=== PATIENT | male | born 1950 | race Caucasian/White ===

== ENCOUNTER 2023-10-04 06:29 | Day surgery (SDC) | payer OTHER, SELFPAY ==
[2023-10-04] VITALS (10 sets, daily range): BP systolic 108–171; BP diastolic 66–91; BMI 29.2
[2023-10-04] MEDS: LOW STRENGTH ASPIRIN 81 MG PO (06:51)
[2023-10-04] MEDS: NSS 239 ML IV (07:02)
[2023-10-04 07:21] LABS: Glucose - Point of Care 119 mg/dl (70-99)
--- NOTE | 2023-10-04 07:23 | ITS.CL.CATH ---
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
Cardiac Catheterization
Procedure Report:
CARDIAC CATHETERIZATION REPORT
Date of Procedure: 10/04/2023
Referring: Ron Tucker MD
Indication: New onset angina
HEMODYNAMIC DATA
AO: 173/65
LV: 173/14
LEFT VENTRICULOGRAPHY: Distal anterolateral hypokinesis with EF 53%
CORONARY ANGIOGRAPHY
Dominance: Right
Left Main: Normal
LAD: The LAD is moderately calcified. There is 40% proximal stenosis and calcific 60% mid LAD stenosis just past the takeoff of the first septal paper tube cutter. There is an eccentric 80% mid LAD stenosis spanning the takeoff of the small third
diagonal branch. There is mild to moderate diffuse disease of the apical LAD. There are 2 high rising diagonal branches-D1 is small and severely diseased. D2 is large with a long area of disease to 70% proximally.
Circumflex: The circumflex is severely calcified. There is 80% ostial/proximal stenosis spanning the takeoff of the large disease-free OM1. There is 40% mid circumflex stenosis proximal to the takeoff of the large bifurcating OM2 which has 30-40%
mid stenosis. The circumflex terminates with a tiny OM 3.
RCA: The RCA is dominant with significant ostial and 70% proximal stenoses. The acute marginal takes off from the crux and becomes the PDA. There is 70% stenosis in the AV groove proximal to the takeoff of the first right posterolateral branch
which is a moderate size vessel with mild luminal disease. The smaller second right posterolateral branch has 70% ostial stenosis. The medium sized third right posterolateral branch is occluded proximally
Closure Device: None-the procedure was performed via the right radial artery. The Jian's test was normal prior to the procedure.
Radiation (mGy): 378
DAP (cm2.Gy): 37.2
Fluoroscopy time: 6.5 minutes
CONCLUSIONS
1: Systemic hypertension
2: Distal anterolateral hypokinesis with EF 53%
3. Severe triple-vessel CAD as described
4. Recommend CABG-optimal targets include LAD, large D2, OM1, RPDA, and RPL
5. The patient has only experienced exertional angina. He has been advised to report to the ER with any angina at limited activity or at rest. He has been strongly advised to avoid all strenuous activity. We will increase metoprolol to 25 mg
daily and add Imdur 30 mg daily. He has sublingual nitroglycerin and has been advised how to use this.
Copy to: Ron Tucker MD, Jessee Chou,
Rc Calloway MD, [facility], [facility]
[2023-10-04] MEDS: NSS 357 IV (09:08)
--- NOTE | 2023-10-04 10:43 | CONSULT.CT ---
Consultation
-
Date/Time Consultation Requested: 10/04/23
Date/Time Consultation Performed: 10/04/23
Requesting Provider: Brodie
Performing Provider: Tsering Mclaughlin PA-C for Dr. Hari Tilley
Reason for Consultation: CABG evaluation
Patient History
Physicians
Family Physician: Jessee Chou
Outpatient Marble Finisher: Ron Tucker
Inpatient Marble Finisher: Brodie
History of Present Illness
Pt is a very pleasant 72y/oM with several months of exertional chest tightness and jaw discomfort. Pt admits to associated MORRELL. Symptoms have been occurring mostly with steps. 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 Pt states symptoms completely resolve with rest. Pt sought evaluation by his PCP who referred him to [facility] cardiology. Pt presented today for elective LHC and was found to have MVCAD. We are asked to evaluate him for CABG.
Past Medical History
Past Medical History: Other
Hypertension
Hyperlipidemia
IDDM
CKD (09/29/23 1.67)
kidney stones
anxiety
depression
GERD
IBS
osteoarthritis
hx cataracts
Past Surgical History
Past Surgical History: Other
cataract sx
hernia repair 2010
L wrist ORIF 2008
lithotripsy
tonsillectomy 1954
Family History
Mother: at Age (92; hx ME @ age 65)
Father: at Age (89; hx ME late 50s)
Family Medical History: Early CAD
Social History
Alcohol: None
Drug: None
Tobacco: Non-Smoker (never smoker)
Personal: Single
Living: With Family (lives with sister & brother in law)
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
Allergies
Allergy/AdvReac Type Severity Reaction Status Date / Time
oxycodone [From Percodan] Allergy Unknown Verified 10/04/23 06:49
Home Medications
Medication Instructions Recorded Confirmed Type
aspirin 81 mg tablet,delayed 81 mg PO DAILY 10/04/23 10/04/23 History
release
atorvastatin 40 mg tablet 40 mg PO DAILY 10/04/23 10/04/23 History
citalopram 20 mg tablet 20 mg PO DAILY 10/04/23 10/04/23 History
insulin glargine 100 unit/mL (3 10 unit SC QPM 10/04/23 10/04/23 History
mL) subcutaneous pen (Basaglar
KwikPen U-100 Insulin)
isosorbide mononitrate 30 mg 30 mg PO DAILY #30 tabs 10/04/23 Rx
tablet,extended release 24 hr
levocetirizine 5 mg tablet 5 mg PO QPM 10/04/23 10/04/23 History
lisinopril 20 1 tab PO DAILY 10/04/23 10/04/23 History
mg-hydrochlorothiazide 25 mg tablet
metformin 500 mg tablet 500 mg PO TIDWMEAL 10/04/23 10/04/23 History
metoprolol succinate 25 mg 25 mg PO DAILY #0 tabs 10/04/23 10/04/23 Rx
tablet,extended release 24 hr
nitroglycerin 0.4 mg sublingual 0.4 mg sublingual [id number] PRN 10/04/23 Rx
tablet chest pain #25 tabs
pantoprazole 40 mg tablet,delayed 40 mg PO DAILY 10/04/23 10/04/23 History
release
Review of Systems
-
History Source: Patient
General: Denies Fever, Weight Loss, Fatigue or Chills
HEENT: Denies Visual Changes or Sore Throat
Respiratory: Reports MORRELL and Cough (chronic )
Cardiac: Reports Chest Pain ('tightness'); Denies Palpitations or Diaphoresis
Abdomen/GI: Denies Abdominal Pain, Nausea or Vomiting
: Denies Dysuria or Frequency
Musculoskeletal: Denies Myalgias or Arthralgias
Skin: Denies Itching or Rash
Neurological: Denies CVA, TIA, Syncope, Dizzy or Seizures
Vascular: Denies Claudication
Physical Exam
Vital Signs
Temp 98.0 F 10/04/23 07:03
Temp route: Temporal 10/04/23 07:03
Pulse 66 10/04/23 09:50
Resp Rate 16 10/04/23 07:03
Blood pressure 171/75 10/04/23 10:37
Position: Sitting 10/04/23 07:03
MAP (cuff-Rogers Monitor) 107 10/04/23 10:37
SaO2 100 10/04/23 09:50
Oxygen Mode of Delivery Room air 10/04/23 10:21
Can the patient verbally communicate their pain? Yes 10/04/23 10:21
Actual Weight 79.6 kg 10/04/23 06:40
Body Mass Index (BMI) 29.2 10/04/23 06:40
Labs
09/29 Cr 1.67, hgb 13.9
Diagnostic Studies
CARDIAC CATHETERIZATION REPORT
Date of Procedure: 10/04/2023
Referring: Ron Tucker MD
Indication: New onset angina
HEMODYNAMIC DATA
AO: 173/65
LV: 173/14
LEFT VENTRICULOGRAPHY: Distal anterolateral hypokinesis with EF 53%
CORONARY ANGIOGRAPHY
Dominance: Right
Left Main: Normal
LAD: The LAD is moderately calcified.� There is 40% proximal stenosis and calcific 60% mid LAD stenosis just past the takeoff of the first septal embossing press operator molded goods.� There is an eccentric 80% mid LAD stenosis spanning the takeoff of the small third
diagonal branch.� There is mild to moderate diffuse disease of the apical LAD.� There are 2 high rising diagonal branches-D1 is small and severely diseased.� D2 is large with a long area of disease to 70% proximally.
Circumflex: The circumflex is severely calcified.� There is 80% ostial/proximal stenosis spanning the takeoff of the large disease-free OM1.� There is 40% mid circumflex stenosis proximal to the takeoff of the large bifurcating OM2 which has 30-40%
mid stenosis.� The circumflex terminates with a tiny OM 3.
RCA: The RCA is dominant with significant ostial and 70% proximal stenoses.� The acute marginal takes off from the crux and becomes the PDA.� There is 70% stenosis in the AV groove proximal to the takeoff of the first right posterolateral branch
which is a moderate size vessel with mild luminal disease.� The smaller second right posterolateral branch has 70% ostial stenosis. The medium sized third right posterolateral branch is occluded proximally
Exam
General: Well Developed, Well Nourished and No Apparent Distress
HEENT: Normocephalic, Anicteric and Moist Mucous Membranes
Neck: Trachea Midline; Negative Carotid Bruit or Mass
Respiratory: Clear; Negative Wheezes, Crackles or Rhonchi
Cardiac: Regular Rhythm; Negative Murmur, Rub or Gallop
GI: Soft, Non Tender and Non Distended
Rectal: Deferred by Provider
Skin: Warm and Dry
Neuro: Nonfocal/Grossly Intact
Extremities: Pulses (L rad 2+; R rad TR in place; R DP +doppler signal, L DP 1+)
Psych: Calm
Assessment / Plan
-
stable angina
MVCAD
- Per cardiology pt's symptoms stable to go home today, we will schedule the patient for preadmission testing later this week in anticipation of CABG. Dr. Tilley to see for full evaluation & determine surgical date. Will order US carotids, CXR,
TTE, labs to be done in [facility] (Saturday 10/07 @ 8:30am). Pt and family agreeable to proceeding with workup & awaiting discussion with Dr. Tilley. Consents to be obtained after risk discussion with surgeon.
STS RISKS calculated below, assumes normal valves on echo (53% EF on LV gram)
Procedure Type:�Isolated CABG
PERIOPERATIVE OUTCOME ESTIMATE %
Operative Mortality 1.19%
Morbidity & Mortality 6.69%
Stroke 1.1%
Renal Failure 2.33%
Reoperation 1.75%
Prolonged Ventilation 2.72%
Deep Sternal Wound Infection 0.235%
Long Hospital Stay (>14 days) 3.68%
Short Hospital Stay (<6 days)* 45.1%
Clinical Summary
Planned Surgery: Isolated CABG, Elective, First cardiovascular surgery
Demographics: 72 year old, White, male, 79.6kg, 165cm, BMI: 29.2 kg/m�
Lab Values: Creatinine: 1.67 mg/dL, Hematocrit: 40%, Platelet Count: 364527 cells/�L
PreOp Medications: Insulin diabetes control
Substance Abuse: Never smoker
Risk Factors / Comorbidities: Insulin-dependent Diabetes Mellitus, Hypertension, Family Hx of CAD
Cardiac Status: Ejection Fraction = 53%
Coronary Artery Disease: 3 vessels diseased, Stable Angina
Data Reviewed
-
EKG: Report Reviewed by me
Powerhouse Laborer: Report Reviewed by me
== END 2023-10-04 13:45 | disposition home or self-care (01) ==
LOC: CATH 06:29
PROVIDERS: ATTENDING PHYSICIAN Internal Medicine Cardiovascular Disease; FAMILY PHYSICIAN Family Medicine
DX: I25.118 Atherosclerotic heart disease of native coronary artery with other forms of angina pectoris (principal); I12.9 Hypertensive chronic kidney disease with stage 1 through stage 4 chronic kidney disease, or unspecified chronic kidney disease; E11.22 Type 2 diabetes mellitus with diabetic chronic kidney disease; E78.5 Hyperlipidemia, unspecified; K21.9 Gastro-esophageal reflux disease without esophagitis; K58.9 Irritable bowel syndrome, unspecified; M19.90 Unspecified osteoarthritis, unspecified site; Z79.4 Long term (current) use of insulin; Z79.84 Long term (current) use of oral hypoglycemic drugs; Z79.82 Long term (current) use of aspirin
CPT/HCPCS: 82962; 93458; C1894; Q9967

== ENCOUNTER 2023-10-18 06:06 | Day surgery (SDC) | payer OTHER, SELFPAY ==
[2023-10-18] VITALS (12 sets, daily range): BP systolic 97–152; BP diastolic 48–68; BMI 29.5
[2023-10-18] MEDS: NSS 239 ML IV (06:53)
[2023-10-18] MEDS: PLAVIX 75 MG PO (06:54)
[2023-10-18 07:01] LABS: Glucose - Point of Care 100 mg/dl (70-99)
--- NOTE | 2023-10-18 08:42 | ITS.CL.PN ---
Senior Animal Trainer - Procedure Note
Procedure
Procedure Note:
CAROTID ANGIOGRAM REPORT
Date of Procedure: 10/18/2023
Referring: Rc Calloway MD
PROCEDURE SUMMARY:
1. Selective right carotid angiography demonstrates total occlusion of the proximal right ICA. Cerebral imaging not performed on the right to save contrast
2. Selective left carotid angiography demonstrates tandem 50% and 50-60% proximal left ICA stenoses
DESCRIPTION OF PROCEDURE: The patient was evaluated for elective CABG due to severe triple-vessel CAD. Carotid ultrasound demonstrated either string sign or occlusion of the right ICA with greater than 70% left ICA stenosis by elevated velocities.
Options were reviewed with the patient. Due to significant renal insufficiency neither CTA nor MRA were performed. Instead, we opted to do low volume conventional carotid angiography with an eye toward treating either the left or right ICA disease
with JD. Patient is asymptomatic with no prior history of known TIA or CVA. Plavix was started several days earlier with a bolus dose of 300 mg and he has been on uninterrupted aspirin 81 mg daily. Informed consent was obtained with estimation
of risk to include 1% major stroke and additional 2% minor stroke risk. Risk of contrast nephropathy also discussed. Patient was hydrated prior to the procedure and again post procedure.
A 5 Malagasy sheath was placed in the right femoral artery using a micropuncture technique. A 5 Malagasy BUCKY diagnostic catheter was advanced into the right common carotid artery and positioned proximal to the bifurcation. Angiography demonstrated
total occlusion of the proximal right ICA. The external carotid artery is widely patent. The BUCKY catheter was then withdrawn and positioned in the left common carotid artery. Angiography showed no significant disease in the left common carotid
artery. Over a angled Glidewire the catheter was advanced to the distal left common carotid artery. Angiography showed tandem 50% and 50-60% proximal left ICA stenoses. Cerebral angiography on the left demonstrated a widely patent distal ICA with
patent left MCA and left ADÁN. There may be subtotal occlusion of the left ophthalmic artery which appears to fill via ADÁN collaterals. There were some collaterals from the ADÁN to the right hemisphere. The right MCA was not visualized.
ANTI-COAGULATION THERAPY
1: Heparin 4000 units
Closure Device Used: 6 Malagasy Angio-Seal RFA
Radiation (mGy): 99.6
DAP (cm2.Gy): 12.2
Fluoroscopy time: 4.5 minutes
CONCLUSIONS:
1. Bilateral selective carotid angiography demonstrates total proximal right internal carotid artery occlusion and tandem 50% and 50-60% proximal left internal carotid artery stenoses
2. Recommend medical therapy with interval ultrasound follow-up for progression of left ICA disease
3. Proceed with CABG
Copy to: Ron Tucker MD, Jessee Campbell DO, Hari Tilley MD
Rc Calloway MD, [facility], [facility]
[2023-10-18] MEDS: TYLENOL 650 MG PO (11:15)
--- NOTE | 2023-10-18 12:34 | PTCARENOTE ---
pt walked around unit and dr richard in to see pt after. pt ok for discharge per
== END 2023-10-18 12:39 | disposition home or self-care (01) ==
LOC: CATH 06:06
PROVIDERS: ATTENDING PHYSICIAN Internal Medicine Cardiovascular Disease; FAMILY PHYSICIAN Family Medicine
DX: I65.23 Occlusion and stenosis of bilateral carotid arteries (principal); R07.9 Chest pain, unspecified; R06.09 Other forms of dyspnea; I10 Essential (primary) hypertension; E78.5 Hyperlipidemia, unspecified; E11.9 Type 2 diabetes mellitus without complications; Z87.891 Personal history of nicotine dependence; Z79.82 Long term (current) use of aspirin; Z79.4 Long term (current) use of insulin; Z79.84 Long term (current) use of oral hypoglycemic drugs; Z79.01 Long term (current) use of anticoagulants; Z82.49 Family history of ischemic heart disease and other diseases of the circulatory system
CPT/HCPCS: 36222; 36223; 82962; C1760; C1894; Q9967

== ENCOUNTER 2023-11-15 05:22 | Inpatient (IN) | payer OTHER, SELFPAY ==
[2023-10-07 08:36] VITALS: BMI 29.8
[2023-10-07 09:44] LABS: % Basophils 0.6 % (0-2); % Eosinophils 3.3 % (0-6); % Immature Granulocytes 0.5 % (0-0.5); % Lymphocytes 19.6 % (20.5-51.1); % Monocytes 6.6 % (1.7-9.3); % Neutrophils 69.4 % (42.2-75.2); Absolute Basophils 0.1 10^3/uL (0-0.2); Absolute Eosinophils 0.3 10^3/uL (0-0.7); Absolute Immature Granulocytes 0.1 10^3/uL (0-0.05); Absolute Lymphocytes 1.9 10^3/uL (1.2-3.4); Absolute Monocytes 0.7 10^3/uL (0.1-0.6); Absolute Neutrophils 6.9 10^3/uL (1.4-6.5); Hematocrit 39.9 % (39.0-52.0); Hemoglobin 13.4 g/dL (13.0-18.0); Mean Corp Hgb Conc. 33.6 g/dL (33.0-37.0); Mean Corpuscular Hgb 27.3 pg (27.0-31.0); Mean Corpuscular Volume 81.4 fL (80.0-94.0); Mean Platelet Volume 12.1 fL (7.4-10.4); Nucleated Red Blood Cells % 0 % (-); Platelet Count 231 10^3/uL (130-400); Red Cell Dist. Width 14.6 % (11.5-14.5); White Blood Cell Count 9.9 10^3/uL (4.8-10.8)
[2023-10-07 10:02] LABS: APTT 30.9 Sec (23.4-35.0); INR 1.02; PT 13.2 Sec (11.4-14.6)
--- NOTE | 2023-10-07 10:26 | CM ---
Chart reviewed. Met with the patient in PAT. Patient is independent of ADLS, lives with brother in law, sister, nephew and grandkids in a 2 STH, 2-3 JACQUELINE, 0 DME. 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 Reviewed preoperative and postoperative
instructions, with restrictions. Gave patient 2 soaps, along with showering instructions. Patient is agreeable to a home visit by CT Transitional Care RN. Plan is for the patient to return home with CT Transitional Care RN. CM to follow
[2023-10-07 10:34] LABS: Urine Albumin Trace (Neg - Trace); Urine Bilirubin Negative (Negative); Urine Character Clear (Clear); Urine Color Yellow; Urine Glucose Negative (Negative); Urine Ketone Negative (Negative); Urine Leukocyte Negative (Negative); Urine Nitrite Negative (Negative); Urine Occult Blood Negative (Negative); Urine Specific Gravity 1.015 (<1.030); Urine Urobilinogen Negative (Neg - 1+)
[2023-10-07 10:42] LABS: ALT (SGPT) 25 U/L (0-50); AST (SGOT) 30 U/L (17-59); Albumin 3.9 g/dl (3.5-5.0); Alkaline Phosphatase 105 U/L (38-126); Blood Urea Nitrogen 39 mg/dl (9-20); Calcium 9.6 mg/dl (8.4-10.2); Carbon Dioxide 23 mmol/L (22-30); Chloride 101 mmol/L (98-107); Direct Bilirubin 0.4 mg/dl (0.0-0.4); Estimated Creatinine Clearance 30 ml/min; Glucose 104 mg/dl (70-99); Potassium 4.1 mmol/L (3.5-5.1); Sodium 138 mmol/L (135-145); Total Bilirubin 0.5 mg/dl (0.2-1.3); Total Protein 6.8 g/dl (6.3-8.2); eGFR 32.42
[2023-11-14 08:53] VITALS: BMI 29.1
[2023-11-14 09:42] LABS: % Basophils 0.7 % (0-2); % Eosinophils 5.5 % (0-6); % Immature Granulocytes 0.3 % (0-0.5); % Lymphocytes 24.4 % (20.5-51.1); % Monocytes 7.9 % (1.7-9.3); % Neutrophils 61.2 % (42.2-75.2); Absolute Basophils 0.1 10^3/uL (0-0.2); Absolute Eosinophils 0.5 10^3/uL (0-0.7); Absolute Lymphocytes 2.1 10^3/uL (1.2-3.4); Absolute Monocytes 0.7 10^3/uL (0.1-0.6); Absolute Neutrophils 5.4 10^3/uL (1.4-6.5); Hematocrit 33.3 % (39.0-52.0); Hemoglobin 10.6 g/dL (13.0-18.0); Mean Corp Hgb Conc. 31.8 g/dL (33.0-37.0); Mean Corpuscular Hgb 26.2 pg (27.0-31.0); Mean Corpuscular Volume 82.2 fL (80.0-94.0); Mean Platelet Volume 11.2 fL (7.4-10.4); Nucleated Red Blood Cells % 0 % (-); Platelet Count 282 10^3/uL (130-400); Red Blood Cell Count 4.05 10^6/uL (4.70-6.10); Red Cell Dist. Width 14.6 % (11.5-14.5); White Blood Cell Count 8.8 10^3/uL (4.8-10.8)
[2023-11-14 09:45] LABS: INR 1.06; PT 13.6 Sec (11.4-14.6)
[2023-11-14 09:46] LABS: APTT 31.4 Sec (23.4-35.0)
[2023-11-14 10:08] LABS: Urine Albumin Negative (Neg - Trace); Urine Bilirubin Negative (Negative); Urine Character Clear (Clear); Urine Color Yellow; Urine Glucose Negative (Negative); Urine Ketone Negative (Negative); Urine Leukocyte Negative (Negative); Urine Nitrite Negative (Negative); Urine Occult Blood Negative (Negative); Urine Specific Gravity 1.015 (<1.030); Urine Urobilinogen Negative (Neg - 1+)
--- NOTE | 2023-11-14 10:18 | CM ---
Met with Mr. Cline in [facility]. He states prior to admission he resides with his sister, [id number] and nephew in a two story home with two steps to enter. He states he has ten steps to get to his bedroom/full bathroom. He states prior to
admission he was independent with ambulation and adls. He states he does not have any DME in the home. He states he has a prescription plan and uses [facility]. He states his [id number] has recent spinal surgery and he will be home. His
sister does work outside the home. The discharge plan is to return home with his sister, [id number]-coa and nephew with a home visit by the Cardiothoracic Transitional Care Nurse.
We reviewed pre-op and post-op routines. We reviewed the shower instructions. He has the soap, written instructions and the Cardiothoracic Surgery Educational Booklet. We also reviewed restrictions including sternal precautions and driving
restrictions. We discussed a home visit by the Cardiothoracic Transitional Care Nurse. He is agreeable to a home visit. The plan is for CABG on Tuesday11/15/23.
[2023-11-14 10:52] LABS: ALT (SGPT) 22 U/L (0-50); AST (SGOT) 27 U/L (17-59); Albumin 4.2 g/dl (3.5-5.0); Alkaline Phosphatase 111 U/L (38-126); Blood Urea Nitrogen 38 mg/dl (9-20); Calcium 10.4 mg/dl (8.4-10.2); Carbon Dioxide 21 mmol/L (22-30); Chloride 102 mmol/L (98-107); Estimated Creatinine Clearance 33 ml/min; Glucose 86 mg/dl (70-99); Potassium 4.7 mmol/L (3.5-5.1); Sodium 138 mmol/L (135-145); Total Bilirubin 0.5 mg/dl (0.2-1.3); Total Protein 7.1 g/dl (6.3-8.2); eGFR 41.52
[2023-11-14 14:06] LABS: Glycohemoglobin (HgbA1c) 6.5 % (4.0-5.6)
[2023-11-15] VITALS (13 sets, daily range): BP systolic 104–174; BP diastolic 56–87; BMI 29.3
--- NOTE | 2023-11-15 01:09 | W.PN.CT ---
Assessment / Plan
-
Assessment:
-S/P Off Pump Cabg x 5 (randall- lad, danita - diag, danita - om, ao- svg - pda/pvbr)/MALENA clip/ revh/ RSF/TTFM, by Dr. Tilley, 11/15/23, pod#1
-Severe 3v CAD
-LVEF 60-65% per intraop SILAS
-HTN
-Hyperlipidemia
-T2DM (hgb A1C 6.5)
-CKD stage 3b (cr 1.7-2.1)
-Renal calculi/Urinary frequency
-Left inguinal hernia
-GERD/Hiatal hernia
-IBS
-OA
-Right ICA occlusion
-Post nasal drip
-Anxiety/depression
-S/p Recent teeth extraction
-S/P lithotripsy
-S/P R inguinal herniorrhaphy
-S/p ORIF of left wrist � � � � � � � �
� � � � � � � �
-Acute postop blood loss/Anemia on chronic anemia (stable without transfusion)
-Acute postop atelectasis/pleural effusion
-Acute postop hypovolemia with subsequent hypervolemia � � � � � � � � � � � � �
� � � � � � � �
Plan:
-No major issues overnight. Hemodynamically and neurologically intact
-Successfully extubated yesterday 11/15/23 @ 1650
-Weaned off of Levophed gtt last night, remains on insulin gtt per protocol
-U/O since OR mL
-Monitor chest tube output: 2meds , L pleural
-No swan
-D/C'd a-line this AM @ 0400
-Transfer to the [facility] phase tomorrow once off insulin gtt
-D/C ordaz catheter later today vs keeping another day given CKDIIIb
-Maintain cordis
-No temporary pacer
-Cont. current meds (ASA, Amiodarone, Lipitor, Lopressor- held last night given hypotension on Levophed; add Plavix)
-Encourage use of IS
-Wean off of O2 as tolerated
-OOB into chair/Ambulate
�� � � � � � � � � �
�� � � � � � � � � �
�� � � � � � � � � �
�� � � � � � � � � �
Subjective
-
Date of Service: November 15, 2023
Objective Data
-
Lab Results
11/14/23 09:04
11/14/23 09:03
PT 13.6 Sec (11.4-14.6) 11/14/23 09:03
INR 1.06 11/14/23 09:03
APTT 31.4 Sec (23.4-35.0) 11/14/23 09:03
[2023-11-15] MEDS: LOPRESSOR 25 MG PO (05:58)
[2023-11-15] MEDS: BACTROBAN 2% OINTMENT 1 APPLIC NASAL ×2 (05:58→20:10)
[2023-11-15] MEDS: PROTONIX 40 MG PO (05:58)
[2023-11-15] MEDS: MAGNESIUM OXIDE 500 MG PO (05:58)
--- NOTE | 2023-11-15 06:45 | W.CVOR.SURPR ---
CVOR Surgeon Immed Pre Op
-
I have examined this patient prior to performance of the scheduled procedure.
The patient's condition is unchanged from the time of the dictated/written History and
Physical and the patient is able to undergo the scheduled procedure.
--- NOTE | 2023-11-15 07:47 | PTCARENOTE ---
Patient arrived with security software engineer. Vital signs obtained. Patient admitted and prepped for surgery. Education provided to patient and family. Assisted patient to OR at approx 0715.
[2023-11-15 07:52] LABS: ACT+ - POC 104 Seconds (82-134)
[2023-11-15 07:54] LABS: B.E. - POC -3.7 mmol/L; Glucose - POC 102 mg/dl (65-99); HCO3 - POC 21 mmol/L (21-29); Hematocrit - POC 34 % PCV (42-52); Hemodilution- POC Yes; Hemoglobin Calculated - POC 11.4; Ionized Calcium - POC 1.19 mmol/L (1.12-1.27); PCO2 - POC 34 mmHg (35-45); PO2 - POC 398 mmHg (80-100); Sodium - POC 141 mmol/L (135-145); pH - POC 7.39 (7.35-7.45)
--- NOTE | 2023-11-15 07:55 | CM ---
Reviewed chart. Mr. Cline is in the operating room today. Prior to admission he resides with his sister, [id number] and nephew with two steps to enter. He has ten steps to get to bedroom/full bathroom. Prior to admission he was independent
with ambulation and adls. He does not have any DME in the home. His brother-in -law had recent spinal surgery so he will be home. His sister works outside the home. He has a prescription plan and uses [facility]. Medical work-up in progress. The
discharge plan is to return cher with his sister, [id number]-wl-oii and nephew with a home visit by the Cardiothoracic Transitional Care Nurse when medically stable.
--- NOTE | 2023-11-15 09:17 | W.PN.UPDATE ---
Update Note
Progress Note Update
Procedure Type:�Isolated CABG
PERIOPERATIVE OUTCOME ESTIMATE %
Operative Mortality 1.12%
Morbidity & Mortality 7.98%
Stroke 2.15%
Renal Failure 2.38%
Reoperation 1.74%
Prolonged Ventilation 3.24%
Deep Sternal Wound Infection 0.173%
Long Hospital Stay (>14 days) 4.63%
Short Hospital Stay (<6 days)* 43.5%
Clinical Summary
Planned Surgery: Isolated CABG, Elective, First cardiovascular surgery
Demographics: 72 year old, White, male, 79.6kg, 165cm, BMI: 29.2 kg/m�
Lab Values: Creatinine: 1.7 mg/dL, Hematocrit: 33.3%, WBC Count: 8.8 10�/�L, Platelet Count: 194331 cells/�L
PreOp Medications: Oral diabetes control
Substance Abuse: Never smoker
Risk Factors / Comorbidities: Diabetes Mellitus , Hypertension, Family Hx of CAD
Vascular RF: LT Carotid Sten. >=80%
Cardiac Status: NYHA Class II, Ejection Fraction = 57%
Coronary Artery Disease: 3 vessels diseased, Stable Angina
Valve Disease: Mild MR, Mild TR
[2023-11-15 09:34] LABS: B.E. - POC -4.1 mmol/L; Glucose - POC 121 mg/dl (65-99); HCO3 - POC 21 mmol/L (21-29); Hematocrit - POC 28 % PCV (42-52); Hemodilution- POC Yes; Hemoglobin Calculated - POC 9.5; Ionized Calcium - POC 1.13 mmol/L (1.12-1.27); O2 Saturation %Calculated-POC 99.2 5 (92-96); PCO2 - POC 36 mmHg (35-45); PO2 - POC 143 mmHg (80-100); Potassium - POC 3.4 mmol/L (3.6-5.0); Sodium - POC 139 mmol/L (135-145); pH - POC 7.37 (7.35-7.45)
[2023-11-15 09:42] LABS: ACT+ - POC 701 Seconds (82-134)
[2023-11-15 09:48] LABS: Urine Albumin Negative (Neg - Trace); Urine Bilirubin Negative (Negative); Urine Character Clear (Clear); Urine Color Yellow; Urine Glucose Negative (Negative); Urine Ketone Trace (Negative); Urine Leukocyte Negative (Negative); Urine Nitrite Negative (Negative); Urine Occult Blood Negative (Negative); Urine Urobilinogen Negative (Neg - 1+); Urine pH 6.5 (5.0-9.0)
[2023-11-15 10:29] LABS: B.E. - POC -4.6 mmol/L; Glucose - POC 118 mg/dl (65-99); HCO3 - POC 21 mmol/L (21-29); Hematocrit - POC 29 % PCV (42-52); Hemodilution- POC Yes; Ionized Calcium - POC 1.16 mmol/L (1.12-1.27); O2 Saturation %Calculated-POC 64.3 5 (92-96); PCO2 - POC 42 mmHg (35-45); PO2 - POC 37 mmHg (80-100); Potassium - POC 3.4 mmol/L (3.6-5.0); Sodium - POC 141 mmol/L (135-145); pH - POC 7.31 (7.35-7.45)
[2023-11-15 10:30] LABS: ACT+ - POC 543 Seconds (82-134)
[2023-11-15 11:40] LABS: ACT+ - POC 321 Seconds (82-134)
[2023-11-15] MEDS: ANCEF 10 IV ×2 (12:30→14:49)
[2023-11-15 12:34] LABS: ACT+ - POC 109 Seconds (82-134)
[2023-11-15 12:37] LABS: B.E. - POC -7.8 mmol/L; Glucose - POC 136 mg/dl (65-99); HCO3 - POC 19 mmol/L (21-29); Hematocrit - POC 31 % PCV (42-52); Hemodilution- POC Yes; Hemoglobin Calculated - POC 10.5; Ionized Calcium - POC 1.11 mmol/L (1.12-1.27); O2 Saturation %Calculated-POC 99.9 5 (92-96); PCO2 - POC 42 mmHg (35-45); PO2 - POC 304 mmHg (80-100); Potassium - POC 3.3 mmol/L (3.6-5.0); Sodium - POC 143 mmol/L (135-145); pH - POC 7.26 (7.35-7.45)
--- NOTE | 2023-11-15 13:11 | CON.INTV ---
Consultation
Consultation Request
Date/Time Consultation Requested: 11/15/2023-1:20 PM
Date/Time Consultation Performed: 11/15/2023-1:30 PM
Requesting Provider: Cardiovascular surgery
Performing Provider: Dr. Borrego
Reason for Consultation: Postop ventilator/critical care management
Medical History
-
Chief Complaint: CAD
History of Present Illness:
73-year-old male with a history of hypertension, hyperlipidemia, diabetes, CKD, anxiety, GERD found to have multivessel CAD and underwent CABG-pulverizer tender consulted for postoperative ventilator/critical care management 10/17/2023. Patient is seen
postoperatively in the CVICU and review of systems unobtainable as patient is on the ventilator. Operative records were reviewed. Pulmonary artery catheter parameters were reviewed.
Past Medical History
Past Medical History: None (Hypertension. Hyperlipidemia. Diabetes. CKD. Renal calculi. Anxiety. Depression. GERD. IBS. Osteoarthritis. Cataract. Hernia repair. Left wrist ORIF. Lithotripsy.)
Social History
Tobacco: Non-smoker
Alcohol: None
Drug: None
Living: With Family
Occupational Exposures: No known asbestos exposure
Environmental Exposures: No known tuberculosis exposure
Family History
Family History: Other (Father-CAD. Mother-diabetes and CAD.)
Allergies / Home Medications
Allergies
Allergy/AdvReac Type Severity Reaction Status Date / Time
aspirin Allergy Nausea / Verified 11/09/23 14:30
Vomiting
oxycodone [From Percodan] Allergy Shortness Verified 11/09/23 14:30
of Breath
Home Medications
Medication Instructions Recorded Confirmed Last Taken Type
aspirin 81 mg tablet,delayed 81 mg PO DAILY 10/04/23 11/15/23 11/10/23 History
release
atorvastatin 40 mg tablet 40 mg PO DAILY 10/04/23 11/15/23 11/13/23 History
citalopram 20 mg tablet 20 mg PO HS 10/04/23 11/15/23 11/14/23 History
insulin glargine 100 unit/mL (3 10 unit SC QPM 10/04/23 11/15/23 11/13/23 History
mL) subcutaneous pen (Basaglar
KwikPen U-100 Insulin)
isosorbide mononitrate 30 mg 30 mg PO DAILY #30 tabs 10/04/23 11/15/23 11/14/23 Rx
tablet,extended release 24 hr
levocetirizine 5 mg tablet 5 mg PO QPM 10/04/23 11/15/23 11/14/23 History
lisinopril 20 1 tab PO DAILY 10/04/23 11/15/23 11/13/23 History
mg-hydrochlorothiazide 25 mg tablet
metformin 500 mg tablet 1,000 mg PO BID 10/04/23 11/15/23 11/14/23 History
metoprolol succinate 25 mg 25 mg PO DAILY #0 tabs 10/04/23 11/15/23 11/14/23 Rx
tablet,extended release 24 hr
nitroglycerin 0.4 mg sublingual 0.4 mg sublingual [id number] PRN 10/04/23 10/18/23 Unknown Rx
tablet chest pain #25 tabs
pantoprazole 40 mg tablet,delayed 40 mg PO DAILY 10/04/23 11/15/23 11/14/23 History
release
azelastine 137 mcg (0.1 %) nasal 1 spray intranasal TID 11/09/23 Unknown History
spray aerosol
azithromycin 500 mg tablet 500 mg PO DAILY 11/09/23 11/15/23 11/11/23 History
Review of Systems
-
Unable to Obtain full review of systems at this time due to: Patient Intubation
Vitals / Labs / Diagnostic Testing
Vital Signs
Temp Pulse Resp BP Pulse Ox
97.4 F 73 20 152/74 100
11/15/23 05:48 11/15/23 05:58 11/15/23 05:48 11/15/23 05:58 11/15/23 05:48
Diagnostic Testing:
Physical Exam
-
Exam:
Well-nourished and well-developed in no apparent distress
HEENT-atraumatic, normocephalic, oral tracheal intubation
Heart-regular rate and rhythm-no murmurs, rubs or gallops
Chest-clear to auscultation, no wheezes, crackles, median sternotomy bandage is not removed
Abdomen soft nondistended
Extremities-no cyanosis, clubbing, edema and good peripheral pulses
Integument-intact, no rashes, lesions or ecchymosis
Neurologically not alert, not oriented, not moving any of his extremities sedated on a ventilator
Assessment
-
73-year-old male with a history of hypertension, hyperlipidemia, diabetes, CKD, anxiety, GERD found to have multivessel CAD and underwent CABG-pulverizer tender consulted for postoperative ventilator/critical care management 10/17/2023
Assessment
Multivessel CAD
Status post CABG x 8-sre-yysl-Dr. Tilley 11/15/2023
Mild ddmzen-kacnxizgck-qgvqmhjhnm 10.6
Chronic renal failure-serum creatinine 1.7
Conditions present prior to admission:
Hypertension.
Hyperlipidemia.
Diabetes.
CKD.
Renal calculi.
Anxiety.
Depression.
GERD.
IBS.
Osteoarthritis.
Cataract. Hernia repair. Left wrist ORIF. Lithotripsy.
Plan
Ventilator settings reviewed
FiO2 will be weaned
Minute ventilation will be adjusted
Arterial blood gases will be monitored
Spontaneous breathing trial will be attempted with hopeful extubation after anesthesia/sedation wear off
Pulmonary artery catheter parameters will be followed
Pressors/antihypertensive/inotropes/diuretics will be provided as needed
Monitor chest tube output
Monitor hemoglobin
Monitor platelet count and coags
Transfuse blood product if needed
CT surgery following chest tubes
Monitor blood sugar
Insulin drip per protocol
Aspiration precautions
VAP prevention protocol
DVT prophylaxis
Early nutrition
Early mobilization
Critical care statement: A total of 50 minutes of critical care time was provided for this patient today. This includes management of ventilator, spontaneous breathing trial, arterial blood gases, pressors, of unstable vital signs, evaluation of the
patient at bedside, reviewing the patient's pertinent medical records including radiographs, microbiology, laboratory evaluations, and discussion with primary team and critical care nursing.
Diagnostic data:
Chest x-ray 10/07/2023-lungs are clear, mild cardiomegaly
Echocardiogram 10/07/2023-EF 57%, no significant valvular disease
Cardiac catheterization 10/04/2023-EF 53%, severe triple-vessel CAD with 40% proximal and 60% mid LAD stenosis, 80% mid LAD stenosis, D2 70%, left circumflex 80%
Cardiac catheterization 10/18/2023-total proximal right internal carotid occlusion and tandem 50% and 50-60% proximal left internal carotid artery stenosis
Data Reviewed
-
EKG: Report reviewed by me
Medical Tests (Nuc Med, Echo etc): Report reviewed by me
Labs: Labs reviewed by me
Old Records: Reviewed
Critical Care Time (in minutes): 50
--- NOTE | 2023-11-15 13:38 | W.PN.CT.SURG ---
CT Surgery Operative Note
-
Pre-op Diagnosis: exertional angina
3v cad
ckd
severe carotid disease
Post-op Diagnosis: Same
Procedure: Cabg x 5, off pump
randall- lad
danita - diag
danita - om
ao- svg - pda/pvbr
revh
RSF
MALENA clip
TTFM
Primary Surgeon: Fitooom
Assisting Surgeons: Arnoldo - leg and chest
Specimen: None
Cultures: None
Complications / Blood Loss: None
Findings: Julián with preserved EF pre and post revasc, no new wma
MALENA without clot, completely occluded, no flow
Good conduit
Fair target vessels
lad small (1.25) with diffuse disesase
diag - good lumen, but intramyocardial
om - larger branch intramycardial, couldnt be found,
first branch grafted, good lumen, diffuse plaque
pda- good target
pvbr - small with diffuse disease
[2023-11-15 13:50] LABS: Glucose - Point of Care 150 mg/dl (70-99)
[2023-11-15 13:55] LABS: B.E. -7.7 mmol/L; HCO3 18.3 mmol/L (21-28); Ionized Calcium 1.05 mMOL/L (1.15-1.33); PCO2 38 mmHg (35-48); PO2 212 mmHg (83-108); Potassium 3.6 mMOL/L (3.5-5.1); Sodium 137 mMOL/L (136-145); pH 7.29 (7.35-7.45)
[2023-11-15 13:56] LABS: Hematocrit 29.6 % (39.0-52.0); Hemoglobin 9.6 g/dL (13.0-18.0); Platelet Count 290 10^3/uL (130-400)
--- NOTE | 2023-11-15 14:00 | PTCARENOTE ---
received patient from [facility] sedated and placed on vent by INVENTORY ASSOCIATE. Out with usual lines, no swan. back up v wires present but off. NSR on monitor. out on levo precedex and insulin per glycemic protocol. #8 ETT @ 24 r lip. SIMV 12/550/+5/60%. pulse ox
100%. CTx3. RL pleural and M. to -20 wall suction draining serosang. Hypo active bowel sounds. ordaz draining clear yellow urine. All surigcal sites c/d/i. MSI TASHIA and well approximated. Labs drawn and sent. ekg done. will continue to monitor
[2023-11-15] MEDS: ALBUMIN 5% 250 IV ×2 (14:02→14:03)
[2023-11-15 14:06] LABS: Blood Urea Nitrogen 33 mg/dl (9-20); Estimated Creatinine Clearance 50 ml/min; Glucose 156 mg/dl (70-99); PT 18.9 Sec (11.4-14.6)
[2023-11-15 14:07] LABS: APTT 30.9 Sec (23.4-35.0)
[2023-11-15] MEDS: CALCIUM CHLORIDE 10% SYRINGE 50 MG IV (14:28)
[2023-11-15] MEDS: KCL 50 IV ×2 (14:28→15:24)
[2023-11-15] MEDS: CALCIUM CHLORIDE 10% SYRINGE 50 ML IV (14:28)
--- NOTE | 2023-11-15 14:38 | W.PN.CD ---
Addendum entered and electronically signed by Rc Calloway MD 11/15/23 16:01:
I evaluated this pt and reviewed the preop cath film, the SILAS intraop and the postop TTE completed within the past hour.
He is intubated but responsive to commands- moves all extremities
ECG raised concern with J point elevations V1-V3 new vs preop
BP 132/80, HR 68 on only Levo 2mcgs/kg/min
cor RR S1S2 no murmur/rub
Lungs clear
Ext no edema
CVP is 9
IMP
TTE shows normal anterior wall motion, CVP 9
No echo sign of significant injury
continue postop med Rx including BB
CCT 30 min
Original Note:
Today's Communication / Plan
-
Stat TTE to evaluate anterior wall
Case discussed with business systems manager
Impression / Plan
-
BACKGROUND: 72M with complaints of exertional angina who was found to have severe multivessel CAD by coronary angiography.
Systems Development Consultant: Dr. Tucker
MCAD S/P CABG x 5 (UPTON-LAD, TERRIE-Diag, TERRIE-OM, Ao-SVG-PDA/PVBR) by Dr. Tilley on 11/15/2023
-SILAS with preserved EF pre and post revascularization without RWMA
-EKG with anterior ST elevation, limited STAT TTE to evaluate anterior wall
-Follow telemetry
PAD
-Total proximal right internal carotid artery occlusion and tandem 50% and 50-60% proximal left internal carotid artery stenoses
-Continue medical therapy with interval ultrasound follow-up for progression of left ICA disease
HTN
HLD, resume atorvastatin 40mg daily when able
CKD3a
Type II DM, Hgba1c 6.5% (improved)
SUBJECTIVE:
Intubated. OR update note reviewed.
Physical Exam
Vital Signs/Labs
Vital Signs
Temp Pulse Resp BP Pulse Ox
97.4 F 73 20 152/74 100
11/15/23 05:48 11/15/23 05:58 11/15/23 05:48 11/15/23 05:58 11/15/23 14:25
11/14/23 11/15/23 11/16/23
06:59 06:59 06:59
Actual Weight 77.4 kg
11/15/23 13:40
PT 18.9 Sec (11.4-14.6) H 11/15/23 13:40
INR 1.60 11/15/23 13:40
APTT 30.9 Sec (23.4-35.0) 11/15/23 13:40
Magnesium 1.0 mg/dl (1.6-2.3) L 11/15/23 13:40
Physical Exam
Constitutional: No acute distress and Comfortable
EENT: Anicteric and Moist mucous membranes
Cardiovascular: Rhythm & rate is regular, Pedal edema is absent, S1S2 is normal and Murmur/rub/gallop absent
Respiratory: Lungs clear to auscul.
GI: Soft, Distention absent, Flat and Non tender
Neuro/Psych: Other (nods head appropriately)
Other: Skin (warm and dry without edema)
Data Reviewed
-
Date of Service: November 15, 2023
EKG: Report Reviewed by me
Labs: Labs Reviewed by me
Old Records: Reviewed
[2023-11-15] MEDS: MAGNESIUM SULFATE 50 IV (14:40)
[2023-11-15 15:03] LABS: Glucose - Point of Care 171 mg/dl (70-99)
[2023-11-15] MEDS: DILAUDID 0.5 MG IV ×2 (15:21→19:00)
[2023-11-15] MEDS: NSS 500 IV (15:23)
[2023-11-15] MEDS: NEURONTIN PO ×2 (15:27→16:34)
[2023-11-15] MEDS: LIPITOR PO (15:27)
[2023-11-15] MEDS: NOVOLOG FLEXPEN SC ×2 (15:27→16:56)
--- NOTE | 2023-11-15 15:42 | PTCARENOTE ---
placed on CPAP by HADOOP JAVA DEVELOPER at 1540. tolerating well.
--- NOTE | 2023-11-15 15:53 | W.PN.UPDATE ---
Update Note
Progress Note Update
IV fluids: 2700
U.O.:� 400
Blood:� none
Wires:� V-wires
Inotropes:� N/A
Pressors:� levophed @ 6
Sedatives:� Precedex @ 4
�
NEURO: sedated on precedex, pupils +3mm B/L
RESP: #8OT @24cm> 500/60%/14/5. Lungs clear B/L. 1 mediastinal (0cc on arrival) and R/L pleural (10cc on arrival) chest tubes to -20cm suction. Sanguineous drainage
CV: RRR +S1, S2, no S3, no�rub, no murmur. Dermabond to median sternotomy. RIJ intact
ABD: round, soft, no BS
EXT: no edema, +2/4 DP pulses B/L, no femoral bruit,RLE CHEYANNE wrap intact; left radial A-line intact
: Griffin with clear yellow urine
�
A/P: POD #0 s/p OPCAB x 5 UPTON-LAD; TERRIE-diag; TERRIE-OM; SVG-PDA. MALENA clip
SILAS: EF�55-60%
- wean and extubate
# anterior ST elevation on EKG
- bedside TTE confirmed nl anterior wall motion
# CAD
- LR @ 80cc/h x 1 bag
- ASA post-op
- ASA/Plavix, statin
- begin Beta-eamon when off pressors (home dose Toprol XL 50mg/d)
# Left carotid stenosis
- keep SBP >110
- on ASA/Plavix, statin
�
# acute surgical blood loss anemia-expected
- trend CBC/CT output
�
# T2DM (A1C 6.5)
- insulin infusion x 24h
- resume MFM 100mg BID, Glargine 10u HS when off insulin infusion and tolerating solids
# depression
- resume citalopram 20mg HS when tolerating solids
�
[2023-11-15 16:21] LABS: Glucose - Point of Care 163 mg/dl (70-99)
[2023-11-15 16:25] LABS: B.E. -8.8 mmol/L; HCO3 16.6 mmol/L (21-28); Hematocrit 25.3 % (39.0-52.0); Hemoglobin 8.5 g/dL (13.0-18.0); Ionized Calcium 1.13 mMOL/L (1.15-1.33); O2 Saturation % 98.3 % (94-98); PCO2 33 mmHg (35-48); PO2 174 mmHg (83-108); Platelet Count 199 10^3/uL (130-400); Potassium 3.6 mMOL/L (3.5-5.1); pH 7.31 (7.35-7.45)
[2023-11-15] MEDS: TYLENOL PO (16:34)
[2023-11-15] MEDS: LR 1000 IV (16:52)
[2023-11-15] MEDS: PACERONE PO (16:56)
[2023-11-15 17:05] LABS: Glucose - Point of Care 139 mg/dl (70-99)
--- NOTE | 2023-11-15 18:05 | PTCARENOTE ---
extubated and weaned to 4L nc. Nitro started for sys BP 140s. will continue to monitor.
[2023-11-15 18:09] LABS: Glucose - Point of Care 161 mg/dl (70-99)
[2023-11-15] MEDS: ANCEF 5 IV (18:20)
[2023-11-15] MEDS: LOW STRENGTH ASPIRIN 81 MG PO (18:20)
[2023-11-15] MEDS: SODIUM BICARBONATE 50 MEQ IV (19:52)
--- NOTE | 2023-11-15 20:00 | PTCARENOTE ---
Received Pt from [facility]; pt resting comfortably in bed; pt is AAOx3; NSR on monitor, VSS; heart sounds audible, rub present, radial and DP pulses palpable, temp epicardial V-wires present but pacing box turned off; lung sounds diminished at b/l
bases, spo2 99% on 4 LNC, x1 mediastinal CT and right/left pleural CT to -20 wall suction, no air leaks, no tidaling, no crepitus; hypoactive BS x4 quadrants, abdomen soft non tender, ice chips provided; pt voiding clear yellow urine via ordaz
catheter; surgical sites and dressings maintained; right IJ cordis, right slick, left radial A-line, and right 18g PIV all maintained, leveled, and zeroed; nitro infusing at hand off, turned off 0 per CVPA; treating to cuff blood pressure per
CVPA; Bicarb ordered and given for -8.8 base excess; pt washed with CHG wipes, new gown provided, tele leads changed; call mccrary within reach; will continue to monitor.
[2023-11-15 20:03] LABS: Glucose - Point of Care 158 mg/dl (70-99)
[2023-11-15] MEDS: SENOKOT-S PO (20:10)
[2023-11-15] MEDS: DILAUDID 0.25 MG IV (22:00)
[2023-11-15] MEDS: TYLENOL 1000 MG PO (22:01)
[2023-11-15] MEDS: PACERONE 200 MG PO (22:02)
[2023-11-15] MEDS: NEURONTIN 100 MG PO (22:02)
[2023-11-15 22:16] LABS: Glucose - Point of Care 152 mg/dl (70-99)
[2023-11-15 23:06] LABS: Glucose - Point of Care 153 mg/dl (70-99)
[2023-11-16] VITALS (50 sets, daily range): BP systolic 90–156; BP diastolic 47–102; PULSE 79; O2SAT 94–96; BMI 30.3
[2023-11-16] LABS: Glucose - Point of Care 146 mg/dl (70-99)
--- NOTE | 2023-11-16 01:00 | PTCARENOTE ---
Pt assessment unchanged; NSR on monitor, VSS; on going pain management with Dilaudid; call mccrary within reach; will continue to monitor.
[2023-11-16 01:24] LABS: Glucose - Point of Care 126 mg/dl (70-99)
[2023-11-16] MEDS: DILAUDID 0.25 MG IV ×2 (01:28→06:38)
[2023-11-16 02:06] LABS: Glucose - Point of Care 100 mg/dl (70-99)
[2023-11-16] MEDS: ANCEF 5 IV ×2 (03:10→11:11)
[2023-11-16] MEDS: FLEXERIL 5 MG PO (03:12)
[2023-11-16 03:13] LABS: Hematocrit 23.4 % (39.0-52.0); Mean Corp Hgb Conc. 34.2 g/dL (33.0-37.0); Mean Corpuscular Hgb 26.9 pg (27.0-31.0); Mean Corpuscular Volume 78.8 fL (80.0-94.0); Mean Platelet Volume 10.9 fL (7.4-10.4); Platelet Count 211 10^3/uL (130-400); Red Blood Cell Count 2.97 10^6/uL (4.70-6.10); Red Cell Dist. Width 14.5 % (11.5-14.5); White Blood Cell Count 9.4 10^3/uL (4.8-10.8)
[2023-11-16 03:17] LABS: Ionized Calcium 1.15 mMOL/L (1.15-1.33)
[2023-11-16 03:37] LABS: Blood Urea Nitrogen 26 mg/dl (9-20); Calcium 7.9 mg/dl (8.4-10.2); Carbon Dioxide 21 mmol/L (22-30); Chloride 111 mmol/L (98-107); Estimated Creatinine Clearance 50 ml/min; Glucose 115 mg/dl (70-99); Magnesium 1.4 mg/dl (1.6-2.3); Potassium 3.9 mmol/L (3.5-5.1); Sodium 137 mmol/L (135-145); eGFR > 60.00
[2023-11-16 03:57] LABS: Glucose - Point of Care 126 mg/dl (70-99)
--- NOTE | 2023-11-16 04:00 | PTCARENOTE ---
Pt assessment unchanged; NSR on monitor, VSS; labs drawn and sent; EKG obtained; on going pain management; call mccrary within reach; will continue to monitor.
--- NOTE | 2023-11-16 04:09 | W.PN.CT ---
Today's Communication / Plan
-
Plan:
-No major issues overnight. Hemodynamically and neurologically intact
-Successfully extubated yesterday 11/15/23 @ 1650
-Weaned off of Levophed gtt last night, remains on insulin gtt per protocol
-U/O since OR 1180 mL
-Monitor chest tube output: 1med 80/250, R/L pleural 10/15. Will likely d/c pleurals and transition med to bulb suction
-No swan
-D/C'd a-line and SLIC this AM @ 0415
-Transfer to tele phase tomorrow once off insulin gtt
-D/C ordaz catheter later today vs keeping another day given CKDIIIb
-Maintain cordis
-No temporary pacer
-Cont. current meds (ASA, Amiodarone, Lipitor, Lopressor- held last night given hypotension on Levophed; add Plavix)
-Encourage use of IS
-Wean off of O2 as tolerated
-OOB into chair/Ambulate
Assessment / Plan
-
Assessment:
-S/P Off Pump Cabg x 5 (randall- lad, danita - diag, danita - om, ao- svg - pda/pvbr)/MALENA clip/ revh/ RSF/TTFM, by Dr. Tilley, 11/15/23, pod#1
-Severe 3v CAD
-LVEF 60-65% per intraop SILAS
-HTN
-Hyperlipidemia
-T2DM (hgb A1C 6.5)
-CKD stage 3b (cr 1.7-2.1)
-Renal calculi/Urinary frequency
-Left inguinal hernia
-GERD/Hiatal hernia
-IBS
-OA
-Right ICA occlusion
-Post nasal drip
-Anxiety/depression
-S/p Recent teeth extraction
-S/P lithotripsy
-S/P R inguinal herniorrhaphy
-S/p ORIF of left wrist � � � � � � � �
� � � � � � � �
-Acute postop blood loss/Anemia on chronic anemia (stable without transfusion)
-Acute postop atelectasis/pleural effusion
-Acute postop hypovolemia with subsequent hypervolemia � � � � � � � � � � � � �
� � � � � � � �
Discussed patient care with: Cardiology, Nursing, Respiratory Therapy, Pharmacy and Care Team
Subjective
Procedure
S/P Off Pump Cabg x 5 (randall- lad, danita - diag, danita - om, ao- svg - pda/pvbr)/MALENA clip/ revh/ RSF/TTFM, by Dr. Tilley, 11/15/23, pod#1
-
Date of Service: November 16, 2023
Pt c/o incisional pain, otherwise feels well
Objective Data
-
Lab Results
11/16/23 03:05
11/16/23 03:05
PT 18.9 Sec (11.4-14.6) H 11/15/23 13:40
INR 1.60 11/15/23 13:40
APTT 30.9 Sec (23.4-35.0) 11/15/23 13:40
Vital Signs
Vital Signs
Temp Pulse Resp BP Pulse Ox
98.6 F 75 16 135/52 98
11/16/23 03:00 11/16/23 02:00 11/16/23 03:00 11/16/23 02:00 11/16/23 03:00
CT Intake/Output/Weight
11/15/23 11/15/23 11/16/23
06:59 18:59 06:59
Intake Total 138.6 / 1111.5 972.9 / 1111.5
Output Total 770 / 1430 660 / 1430
Balance -631.4 / -318.5 312.9 / -318.5
SaO2: 98 (2L)
Physical Exam
-
General: Awake, Oriented and AOx3
Cardiovascular: Regular rate & rhythm, No Murmurs, No Rub and No Gallop
Respiratory: Decreased Breath Sounds (at bases, otherwise clear)
Sternum: Stable
Incision: Clean, Dry, Intact and Dressing Intact
Extremities: No Edema
Data Reviewed
-
Lab Results: Results Reviewed
Medications: Active Meds Reviewed
Chest X-Ray: Report Reviewed and Image Reviewed
ECG: Report Reviewed and Image Reviewed
[2023-11-16] MEDS: LR 1000 IV (04:33)
[2023-11-16] MEDS: MAGNESIUM SULFATE 50 IV (04:42)
[2023-11-16] MEDS: TYLENOL 1000 MG PO ×2 (06:09→13:58)
--- NOTE | 2023-11-16 07:11 | W.PN.INTV ---
Today's Communication / Plan
Recommendations
Tolerated extubation
Wean FiO2
Incentive spirometry
Discontinue arterial line
Remains on insulin drip and ICU status
Assessment
-
73-year-old male with a history of hypertension, hyperlipidemia, diabetes, CKD, anxiety, GERD found to have multivessel CAD and underwent CABG-cafeteria food server consulted for postoperative ventilator/critical care management 10/17/2023
Assessment
Multivessel CAD
Status post CABG x 0-ehg-fvdv-Dr. Tilley 11/15/2023
Mild szqqfm-mvjxbehqke-hhcjpmdrnu 10.6
Chronic renal failure-serum creatinine 1.7
Conditions present prior to admission:
Hypertension.
Hyperlipidemia.
Diabetes.
CKD.
Renal calculi.
Anxiety.
Depression.
GERD.
IBS.
Osteoarthritis.
Cataract. Hernia repair. Left wrist ORIF. Lithotripsy.
Plan
Tolerated extubation
Wean FiO2
Encourage incentive spirometry
Increase activity
Aspiration precautions
Pulmonary artery catheter and arterial line will be removed
Pressors have been weaned
Continue to monitor chest tube output
Follow hemoglobin
Continue to follow platelet count and coags
Transfuse blood product as needed
CT surgery following chest tubes as well
Follow blood sugar
Insulin supplementation continues as needed
Early nutrition
Early mobilization
DVT prophylaxis
Patient remains in ICU as continues to be on insulin drip
Reviewed the patient's pertinent medical records including radiographs, microbiology, laboratory evaluations, and discussion with primary team, and critical care nursing.
Diagnostic data:
Chest x-ray 10/07/2023-lungs are clear, mild cardiomegaly
Echocardiogram 10/07/2023-EF 57%, no significant valvular disease
Cardiac catheterization 10/04/2023-EF 53%, severe triple-vessel CAD with 40% proximal and 60% mid LAD stenosis, 80% mid LAD stenosis, D2 70%, left circumflex 80%
Cardiac catheterization 10/18/2023-total proximal right internal carotid occlusion and tandem 50% and 50-60% proximal left internal carotid artery stenosis
Subjective Dataa
Subjective Data
Date of Service:
Date of Service: November 16, 2023
Chief Complaint: Rope Machine Setter Follow Up and Pulmonary Follow Up
Subjective:
Tolerated extubation, no complaints of shortness of breath, pain controlled, chest tubes not draining significantly, no abdominal pain
Review of Systems
General: Other (Per HPI)
Objective Data
Data Reviewed
Vital Signs / I&O / Oxygen:
Vital Signs
Temp Pulse Resp BP Pulse Ox
98.5 F 75 16 135/52 98
11/16/23 04:00 11/16/23 02:00 11/16/23 03:00 11/16/23 02:00 11/16/23 04:52
Intake and Output
11/15/23 11/16/23 11/17/23
06:59 06:59 06:59
Intake Total 1357.5 / 1357.5
Output Total 1655 / 1655
Balance -297.5 / -297.5
SaO2 [CPAP] 100
SaO2 [SIMV] 100
SaO2 98
Nasal Cannula flow liters per 2
minute
Physical Exam
General: Respiratory Distress (n) and Comfortable
HEENT: Normocephalic, Anicteric and Moist Mucous Membranes
Cardiovascular: Regular Rhythm
Respiratory: Wheeze (n), Crackles (Rare basilar), Rhonchi (n), Non-Labored Respirations, Accessory Resp Muscle Use (n) and Stridor (n)
GI: Soft, Non Distended and Non Tender
Neurology: Awake, Alert and No Motor Deficits
Skin: Warm, Good Color, Cyanosis (n), Jaundice (n) and Rash (n)
Labs/Micro/Reports
Lab Data
11/16/23 03:05
11/16/23 03:05
Laboratory Results
11/15/23 11/15/23
13:40 16:14
PT 18.9 H
INR 1.60
APTT 30.9
pH 7.29 L 7.31 L
pCO2 38 33 L
pO2 212 H 174 H
HCO3 18.3 L 16.6 L
O2 Delivery Level Not Reportable
Microbiology
11/14/23 09:04 Nose MRSA Screen - Final
No Methicillin Resistant Staphylococcus aureus isolated.
--- NOTE | 2023-11-16 07:17 | W.PN.ANS.POP ---
Anesthesia Post Operative
- Anesthesia Post Op Note
Vital Signs Stable-See Nursing Note: Yes
Airway Patent: Yes
Adequate Pain Control: Yes
Change in Mental Status: No
Current Postoperative Nausea & Vomiting: No
Anesthesia Complications: No
General Anesthetic Recall: No
Unplanned Admission: No
Post Op Hydration Adequate: Yes
[2023-11-16] MEDS: NOVOLOG FLEXPEN 4 UNITS SC (08:20)
--- NOTE | 2023-11-16 08:22 | W.PN.CD ---
Today's Communication / Plan
-
continue post op care
consider lasix
Impression / Plan
-
BACKGROUND: 72M with complaints of exertional angina who was found to have severe multivessel CAD by coronary angiography.
Financial Intern: Dr. Tucker
MCAD S/P CABG x 5 (UPTON-LAD, TERRIE-Diag, TERRIE-OM, Ao-SVG-PDA/PVBR) by Dr. Tilley on 11/15/2023
-SILAS with preserved EF pre and post revascularization without RWMA
-EKG with anterior ST elevation, limited STAT TTE without regional wall motion abnormality
-repeat EKG with resolustion of JACQUELINE
-Follow telemetry
-continue DAPT,atorva,metoprolol
-Weight is up from 11/14 from 77.4 to 80.1 kg, decreased lung sounds b/l consider lasix
PAD
-Total proximal right internal carotid artery occlusion and tandem 50% and 50-60% proximal left internal carotid artery stenoses
-Continue medical therapy with interval ultrasound follow-up for progression of left ICA disease
HTN
HLD, resume atorvastatin 40mg daily when able
GSV6z--zy 1.2
Type II DM, Hgba1c 6.5% (improved)
SUBJECTIVE:
He is having minimal pain with breathing trying to take deap breaths
Data:
11/16/23: Limited echocardiogram to assess LV regional and global function with special
�attention to the anterior wall.
�Normal left ventricular size and systolic function.
�No regional wall motion abnormalities are seen.
�Compared to prior study of 10/07/2023 the LV function is unchanged.
�
Physical Exam
Vital Signs/Labs
Vital Signs
Temp Pulse Resp BP Pulse Ox
98.1 F 88 17 124/52 98
11/16/23 06:00 11/16/23 07:00 11/16/23 07:00 11/16/23 07:00 11/16/23 07:00
11/15/23 11/16/23 11/17/23
06:59 06:59 06:59
Actual Weight 77.4 kg 80.1 kg
11/16/23 03:05
11/16/23 03:05
PT 18.9 Sec (11.4-14.6) H 11/15/23 13:40
INR 1.60 11/15/23 13:40
APTT 30.9 Sec (23.4-35.0) 11/15/23 13:40
Magnesium 1.4 mg/dl (1.6-2.3) L 11/16/23 03:05
Physical Exam
Constitutional: No acute distress
Cardiovascular: Rhythm & rate is regular, Pedal edema is absent, Systolic murmur absent, Diastolic murmur absent and Rhythm/rate is irregular
Respiratory: Respiratory effort normal, Lungs clear to auscul., Wheeze Absent, Crackles Absent, Rhonchi Absent and Other (decreased at the bases)
Neuro/Psych: AO x 3
Data Reviewed
-
Date of Service: November 16, 2023
EKG: Other (Sinus rhythm with resolution of the jacqueline anteriorly)
Medical Tests (PFT, Pathology etc): Discussed with Nurse (would consider lasix)
[2023-11-16] MEDS: FLUSH (NSS) 1 FLUSH IV (08:24)
[2023-11-16] MEDS: BACTROBAN 2% OINTMENT 1 APPLIC NASAL ×2 (08:24→21:52)
[2023-11-16] MEDS: PACERONE 200 MG PO ×2 (08:25→15:43)
[2023-11-16] MEDS: NEURONTIN 100 MG PO ×2 (08:25→15:43)
[2023-11-16] MEDS: LOW STRENGTH ASPIRIN 81 MG PO (08:25)
[2023-11-16] MEDS: MAGNESIUM OXIDE 500 MG PO (08:25)
[2023-11-16] MEDS: LOPRESSOR 12.5 MG PO (08:25)
[2023-11-16] MEDS: LIPITOR 40 MG PO (08:25)
[2023-11-16] MEDS: PLAVIX 75 MG PO (08:25)
[2023-11-16] MEDS: PROTONIX 40 MG PO (08:25)
[2023-11-16] MEDS: SENOKOT-S 1 TABLET PO (08:25)
--- NOTE | 2023-11-16 08:30 | PTCARENOTE ---
Assumed care of patient. Pt assessed while he was sitting in the chair. Pt alert and oriented x4. MAYBERRY with equal strength throughout. Pt rates sternal pain 4/10, denies nausea and shortness of breath. NSR-ST on tele with rates 90s-100s. BP stable
126/66. Bilateral radial and DP pulses palpable. Generalized +1 edema. Epicardial v-wire turned off. POX 94% on RA. Lungs diminished in the bases. IS encouraged-500mL achieved. No cough noted. Mediastinal chest tube to -20cm suction draining
serosanguineous fluid. Right and Left pleural chest tubes y-sited to 1 atrium to -20cm suction draining serosanguineous fluid. No air leak, tidaling, crepitus noted. Abdomen soft, nontender. Pt belching. Tolerating clear liquid diet. Hypoactive BS.
Griffin catheter intact draining adequate amounts of clear yellow urine. Sternal incision approximated with skin glue-TASHIA. Right groin puncture site approximated with skin glue-TASHIA. Right knee incision approximated with skin glue and CHEYANNE CDI. Right IJ
cordis intact infusing NSS KVO and LR @80mL/hr. Right forearm 18g PIV infusing insulin gtt per critical care glycemic protocol. See MAR for medication administration. See worklist for complete nursing assessment. Plan of care reviewed and patient in
agreement.
[2023-11-16 08:39] LABS: Glucose - Point of Care 99 mg/dl (70-99)
[2023-11-16 08:39] LABS: Glucose - Point of Care 159 mg/dl (70-99)
[2023-11-16] MEDS: NSS IV (09:41)
[2023-11-16 10:33] LABS: Glucose - Point of Care 96 mg/dl (70-99)
--- NOTE | 2023-11-16 11:00 | PTCARENOTE ---
Pt assisted back to bed with 2 assist. Griffin d/c per orders. CTx3 d/c per orders. V-wire insulated. Pt tolerated and resting in bed at this time.
[2023-11-16 12:13] LABS: Glucose - Point of Care 160 mg/dl (70-99)
--- NOTE | 2023-11-16 12:20 | PTCARENOTE ---
Pt reassessed. VSS. NSR with rates in the 70s. BP stable 130/47. POX 94% on RA. Surgical sites stable. Cordis and PIV remain intact.
[2023-11-16] MEDS: NOVOLOG FLEXPEN-MODERATE RESISTANCE 1 UNITS SC ×2 (13:58→17:25)
[2023-11-16 14:04] LABS: Glucose - Point of Care 165 mg/dl (70-99)
--- NOTE | 2023-11-16 15:45 | PTCARENOTE ---
Pt oriented x4, but wifty and acts confused at times. CT PADDED BOX SEWER aware, pain meds decreased. NSR on tele with rates in the 80s-90s. BP 104/50. POX 92% on RA. Surgical sites stable. Right IJ cordis and PIV intact. Pt voided 125mL riley urine in the
urinal. Bladder scanned for 6ml post void.
[2023-11-16] MEDS: GLUCOPHAGE 1000 MG PO (17:25)
[2023-11-16] MEDS: LANTUS 0.100000000000000006 UNITS SC (17:25)
[2023-11-16 17:29] LABS: Glucose - Point of Care 196 mg/dl (70-99)
--- NOTE | 2023-11-16 19:00 | PTCARENOTE ---
Upon walking rounds, pt noted to have Left sided facial droop and left arm weakness. Rapid response and stroke alert called. CT FENCE REPAIRMAN and PA at bedside. NIH 8. VSS. Pt transported to [facility] for CT head and CTA head/neck. Neuro spoke with this RN who
requested CTA and IVF post cat scan. Labs obtained and sent. Facial droop and weakness better upon arriving to [facility]. CT FENCE REPAIRMAN notified. Pt transported back to CVICU.
[2023-11-16 19:09] LABS: Glucose - Point of Care 215 mg/dl (70-99)
--- NOTE | 2023-11-16 19:39 | W.PN.UPDATE ---
Update Note
Progress Note Update
-@ 19:05 pt was noted to have L facial droop with speech slurring, suspected L visual neglect, L arm weakness with L arm drift. No deficits noted in lower extremities b/l. Pt was alert, oriented and responsive to questions. BG was 217. Stroke alert
was called and pt is currently undergoing head CT.
-labs pending
-Dr. Tilley was updated. Will update family.
[2023-11-16 19:55] LABS: Hematocrit 22.3 % (39.0-52.0); Hemoglobin 7.5 g/dL (13.0-18.0); Mean Corp Hgb Conc. 33.6 g/dL (33.0-37.0); Mean Corpuscular Hgb 26.5 pg (27.0-31.0); Mean Corpuscular Volume 78.8 fL (80.0-94.0); Mean Platelet Volume 11.1 fL (7.4-10.4); Platelet Count 228 10^3/uL (130-400); Red Blood Cell Count 2.83 10^6/uL (4.70-6.10); Red Cell Dist. Width 14.8 % (11.5-14.5); White Blood Cell Count 12.7 10^3/uL (4.8-10.8)
[2023-11-16 20:00] LABS: PT 27.3 Sec (11.4-14.6)
--- NOTE | 2023-11-16 20:00 | PTCARENOTE ---
[facility]; on walking rounds, pt's showed mental status change, left sided weakness and facial drooping; code 9 stoke alert was called; pt was brought down to CT; see out going RN's note for complete details; on return from CT pt was
reassess and had returned to base line, see worklist neuro assessment; 100ml/hr NSS was started per CVPA; NSR on monitor, VSS; will continue to monitor
[2023-11-16 20:01] LABS: APTT 40.4 Sec (23.4-35.0)
[2023-11-16 20:02] LABS: Albumin 3.1 g/dl (3.5-5.0); Chloride 102 mmol/L (98-107); Sodium 134 mmol/L (135-145)
--- NOTE | 2023-11-16 20:07 | W.PN.UPDATE ---
Update Note
Progress Note Update
-@ 19:55 pt is back from head CT. No CT evidence for acute intracranial hemorrhage or transcortical infarct. Pt neuro status improved. Initial NIH score of 9 is now decreased to 3. Pt has no L arm drift, L facial droop improved, no further L visual
neglect, slight tongue deviation to R noted, slight sensory decrease of L arm and L leg noted, 5/5 strength in upper and lower extremities b/l. Pt is A&O x4. BP 144/75, nsr 98 bpm, pOx 92% on 4L
-discussed with Dr. Tilley. Hg is 7.5 - will give 1 pRBC now
-per pt's wishes, updated his sister Jolanta over the phone
[2023-11-16 20:15] LABS: ALT (SGPT) 14 U/L (0-50); AST (SGOT) 74 U/L (17-59); Alkaline Phosphatase 60 U/L (38-126); Blood Urea Nitrogen 25 mg/dl (9-20); Calcium 8.3 mg/dl (8.4-10.2); Carbon Dioxide 20 mmol/L (22-30); Estimated Creatinine Clearance 44 ml/min; Glucose 193 mg/dl (70-99); Total Bilirubin 0.5 mg/dl (0.2-1.3); Total Protein 5.3 g/dl (6.3-8.2); eGFR 52.41
[2023-11-16 20:26] LABS: Potassium 3.8 mmol/L (3.5-5.1)
[2023-11-16] MEDS: LOPRESSOR PO (21:51)
[2023-11-16] MEDS: MAGNESIUM OXIDE PO (21:51)
[2023-11-16] MEDS: SENOKOT-S PO (21:52)
[2023-11-16] MEDS: OFIRMEV 100 IV (21:57)
[2023-11-16] MEDS: TYLENOL PO (22:08)
[2023-11-16] MEDS: PACERONE PO (22:08)
[2023-11-16] MEDS: CELEXA PO (22:08)
[2023-11-16 22:25] LABS: Glucose - Point of Care 251 mg/dl (70-99)
[2023-11-17] VITALS (21 sets, daily range): BP systolic 109–157; BP diastolic 53–87; PULSE 88–107; O2SAT 96; BMI 30.6
--- NOTE | 2023-11-17 | PTCARENOTE ---
Pt assessment unchanged; NSR/ST on monitor VSS; pt resting comfortably in bed; AAOx3, see neuro assessment in worklist; pt received x1 PRBC for hbg of 7.5; Ofirmev IV was given for pain; call mccrary within reach; will continue to monitor.
[2023-11-17 03:36] LABS: Hematocrit 24.5 % (39.0-52.0); Hemoglobin 8.4 g/dL (13.0-18.0); Mean Corp Hgb Conc. 34.3 g/dL (33.0-37.0); Mean Corpuscular Hgb 27.5 pg (27.0-31.0); Mean Corpuscular Volume 80.1 fL (80.0-94.0); Mean Platelet Volume 10.9 fL (7.4-10.4); Platelet Count 193 10^3/uL (130-400); Red Blood Cell Count 3.06 10^6/uL (4.70-6.10); Red Cell Dist. Width 14.7 % (11.5-14.5); White Blood Cell Count 11.5 10^3/uL (4.8-10.8)
--- NOTE | 2023-11-17 04:00 | PTCARENOTE ---
Pt assessment unchanged; NSR on monitor, VSS; labs drawn and sent; stroke neuro check completed; per CVPA swallow screen was also provide-pt fail screening; Pt is NPO and speak therapy has been consulted; CHG wipes provided, pt changed into new gown
and tele leads changed; call mccrary within reach; will continue to monitor.
[2023-11-17 04:04] LABS: Blood Urea Nitrogen 24 mg/dl (9-20); Calcium 8.4 mg/dl (8.4-10.2); Chloride 106 mmol/L (98-107); Estimated Creatinine Clearance 44 ml/min; Glucose 181 mg/dl (70-99); Magnesium 1.9 mg/dl (1.6-2.3); Sodium 136 mmol/L (135-145); eGFR 52.41
[2023-11-17 04:14] LABS: Carbon Dioxide 20 mmol/L (22-30)
[2023-11-17] MEDS: TYLENOL PO (06:16)
--- NOTE | 2023-11-17 06:29 | W.PN.CT ---
Today's Communication / Plan
-
-pod #2
-no further issues overnight. Pt is pleasant, conversant, A&O x4
-NPO overnight, held all meds. Pt was coughing on bedside swallow trial - will ask Speech pathology to evaluate
-Large amount of intraluminal food material in the thoracic esophagus with surrounding esophageal wall thickening noted on neck CTA.
-s/p suspected R CVA last night with mild residual sxs. No CT evidence for acute intracranial hemorrhage or transcortical infarct. Has known significant b/l Carotid dz with total occlusion of STUART with collateral blood supply reaching the right
middle and anterior cerebral arteries. Greater than 70% stenosis of LICA and 70% stenosis of L vertebral artery.
-s/p 1 pRBC 11/15 for Hg 7.5
-appears SOB with conversation, + JVD, required more O2 overnight upto 6L (was on RA on 11/15)- will give 40 iv Lasix in am
-follow Cr (CKD, Cr 1.7 preop)- 1.4 today (1.2-1.4 pm 11/15 and 1.2 on 11/14)
-avoid hypotension
-appreciate Neuro, Cardiology input
-encourage IS, OOB
Assessment / Plan
-
Assessment:
-S/P Off Pump Cabg x 5 (randall- lad, danita - diag, danita - om, ao- svg - pda/pvbr)/MALENA clip/ revh/ RSF/TTFM, by Dr. Tilley, 11/14/24, pod#2
-Severe 3v CAD
-LVEF 60-65% per intraop SILAS
-HTN
-Hyperlipidemia
-T2DM (hgb A1C 6.5)
-CKD stage 3b (cr 1.7-2.1)
-Renal calculi/Urinary frequency
-Left inguinal hernia
-GERD/Hiatal hernia
-IBS
-OA
-Right ICA occlusion
-Post nasal drip
-Anxiety/depression
-S/p Recent teeth extraction
-S/P lithotripsy
-S/P R inguinal herniorrhaphy
-S/p ORIF of left wrist � � �
-Known significant b/l Carotid dz
� � � � �
� � � � � � � �
-Acute postop blood loss/Anemia on chronic anemia (stable without transfusion)
-Acute postop atelectasis/pleural effusions b/l
-Acute postop hypovolemia with subsequent hypervolemia � � �
-Acute postop suspected R CVA on 11/15 with L facial droop, L side neglect, mild tongue deviation to R, L arm drift and weakness - symptoms significantly improved (residual symptoms include only mild L facial droop and decreased sensation on L arm
and leg)� �
Head CT 11/16/23:
1. � No CT evidence for acute intracranial hemorrhage or transcortical infarct.
2. � Moderate bilateral parietal lobe volume loss.
3. � Mild white matter leukoaraiosis in the frontal and parietal lobes.
4. � Severe calcified thickening of the transverse ligament posterior to the dens causing moderate spinal cord compression and central canal stenosis.
NECK CTA 11/16/23:
1. � Complete occlusion of the proximal right internal carotid artery.
2. � Greater than 70% diameter stenosis in the proximal left internal carotid artery.
3. � Greater than 70% diameter stenosis in the pre-foraminal and extradural segments of the left vertebral artery.
4. � Large amount of intraluminal food material in the thoracic esophagus with surrounding esophageal wall thickening (possibly secondary to inflammatory esophagitis or esophageal carcinoma).
5. � Moderate-sized bilateral pleural effusions.
6. � Recent CABG surgery.
7. � Severe calcified thickening of the transverse ligament posterior to the dens causing moderate ventral spinal cord compression and central canal stenosis. Large 1.1 cm erosion in the left side of the C2 vertebral body. A crystal arthropathy
(calcium pyrophosphate dihydrate deposition arthropathy) or rheumatoid arthritis are diagnostic possibilities.
HEAD CTA 11/16/23:
1. � Complete occlusion of the right intracranial internal carotid artery.
2. � Severe greater than 70% diameter stenosis in the intracranial left internal carotid artery.
3. � Collateral blood supply reaching the right middle and anterior cerebral arteries.
4. � 70% diameter stenosis in the intracranial left vertebral artery.
5. � No CT evidence for acute intracranial hemorrhage or hydrocephalus.
� � � � � � � �
Discussed patient care with: Nursing and Care Team
Subjective
Procedure
S/P Off Pump Cabg x 5 (randall- lad, danita - diag, danita - om, ao- svg - pda/pvbr)/MALENA clip/ revh/ RSF/TTFM, by Dr. Tilley, 11/15/23, pod#1
-
Date of Service: November 17, 2023
Objective Data
-
PT 27.3 Sec (11.4-14.6) H 11/16/23 19:28
INR 2.50 11/16/23 19:28
APTT 40.4 Sec (23.4-35.0) H 11/16/23 19:28
Vital Signs
Vital Signs
Temp Pulse Resp BP Pulse Ox
98.1 F 83 14 129/54 96
11/17/23 00:00 11/17/23 00:02 11/17/23 00:00 11/17/23 00:02 11/17/23 00:00
CT Intake/Output/Weight
11/16/23 11/16/23 11/17/23
06:59 18:59 06:59
Intake Total 1218.9 / 1448.3 864.8 / 1214.8 350 / 1214.8
Output Total 885 / 1655 335 / 560 225 / 560
Balance 333.9 / -206.7 529.8 / 654.8 125 / 654.8
SaO2: 96
Physical Exam
-
General: Awake and AOx3
Cardiovascular: Regular rate & rhythm, No Murmurs, No Rub and Other (+ JVD)
Respiratory: Decreased Breath Sounds
Sternum: Stable
Incision: Clean, Dry and Dressing Intact
Extremities: Other (trace edema b/l, 1+ DPs b/l)
Abdomen: soft, nontender, nondistended, + decreased bowel sounds
Neuro: A&O x4. Vision intact b/l. No neglect. Very mild residual L facial droop - speech significantly improved, slight R tongue deviation to R. Slightly decreased sensation on L arm and leg. L arm drift resolved. Strength 5/5 upper and lower
extremities b/l
Data Reviewed
-
Lab Results: Results Reviewed
Medications: Active Meds Reviewed
Chest X-Ray: Report Reviewed and Image Reviewed
ECG: Report Reviewed and Image Reviewed
--- NOTE | 2023-11-17 07:36 | W.PN.INTV ---
Today's Communication / Plan
Recommendations
Appears to have full neurologic recovery
Eventual consideration towards carotid revascularization
Monitor pleural fluid reaccumulation
Insulin drip has been discontinued
Patient now on telemetry-safety engineer pressure vessels will sign off-call pulmonary if respiratory issues arise
Assessment
-
73-year-old male with a history of hypertension, hyperlipidemia, diabetes, CKD, anxiety, GERD found to have multivessel CAD and underwent CABG-safety engineer pressure vessels consulted for postoperative ventilator/critical care management 10/17/2023
Assessment
Multivessel CAD
Status post CABG x 4-nuo-naon-Dr. Tilley 11/15/2023
Mild gfqooz-fashgggcur-feuoohfzmh 10.6
Chronic renal failure-serum creatinine 1.7
Suspected right CVA from severe carotid stenosis
Conditions present prior to admission:
Hypertension.
Hyperlipidemia.
Diabetes.
CKD.
Renal calculi.
Anxiety.
Depression.
GERD.
IBS.
Osteoarthritis.
Cataract. Hernia repair. Left wrist ORIF. Lithotripsy.
Plan
Respiratory status stable tolerated extubation
Continue attempts at weaning FiO2
Incentive spirometry encouraged
Increase activity
Aspiration precautions
Official speech therapy evaluation
Chest x-ray 11/17/2023-right basilar subsegmental atelectasis and small bilateral pleural effusions
Monitor pleural effusions-therapeutic thoracentesis if effusions and large or patient's symptomatic
Patient has been delined
Continue to monitor chest tube output
Follow hemoglobin
Continue to follow platelet count and coags
Transfuse blood product as needed
CT surgery following chest tubes as well
Neurologic changes noted
CT head 11/16/2023-no CT evidence for acute intracranial hemorrhage or transcortical infarct, moderate bilateral parietal lobe volume loss, severe calcified thickening of the transverse ligament posterior to the dens causing moderate spinal cord
compression and central canal stenosis
CT neck and head angiogram 11/16/2023-complete occlusion of proximal right internal carotid artery, greater than 70% diameter stenosis proximal left internal carotid artery, greater than 70% stenosis in the preforaminal and extradural segments of the
left vertebral artery, moderate-sized bilateral pleural effusions
Neurology evaluation ongoing
Likely related to severe carotid stenosis
Maintain perfusion pressures-avoid hypotension
Eventual revascularization of the carotid
Follow blood sugar
Insulin supplementation continues as needed
Early nutrition
Early mobilization
DVT prophylaxis
Insulin drip has been discontinued and patient on telemetry-safety engineer pressure vessels will sign off-call pulmonary if respiratory issues arise
Reviewed the patient's pertinent medical records including radiographs, microbiology, laboratory evaluations, and discussion with primary team, and critical care nursing.
Diagnostic data:
Chest x-ray 10/07/2023-lungs are clear, mild cardiomegaly
Echocardiogram 10/07/2023-EF 57%, no significant valvular disease
Cardiac catheterization 10/04/2023-EF 53%, severe triple-vessel CAD with 40% proximal and 60% mid LAD stenosis, 80% mid LAD stenosis, D2 70%, left circumflex 80%
Cardiac catheterization 10/18/2023-total proximal right internal carotid occlusion and tandem 50% and 50-60% proximal left internal carotid artery stenosis
Subjective Dataa
Subjective Data
Date of Service:
Date of Service: November 17, 2023
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
Subjective:
Events noted, neurologically recovered completely, no complaints of shortness of breath, pain controlled, no abdominal pain, no weakness, speech difficulties, possible swallowing difficulties
Review of Systems
General: Other (Per HPI)
Objective Data
Data Reviewed
Vital Signs / I&O / Oxygen:
Vital Signs
Temp Pulse Resp BP Pulse Ox
98.0 F 87 16 154/57 97
11/17/23 04:00 11/17/23 06:00 11/17/23 04:00 11/17/23 06:00 11/17/23 05:00
Intake and Output
11/16/23 11/17/23 11/18/23
06:59 06:59 06:59
Intake Total 1357.5 / 1448.3 1654.8 / 1654.8
Output Total 1655 / 1655 960 / 960
Balance -297.5 / -206.7 694.8 / 694.8
SaO2 [CPAP] 100
SaO2 [SIMV] 100
SaO2 97
Nasal Cannula flow liters per 4
minute
Physical Exam
General: Respiratory Distress (n) and Comfortable
HEENT: Normocephalic, Anicteric and Moist Mucous Membranes
Cardiovascular: Regular Rhythm
Respiratory: Wheeze (n), Crackles (Rare basilar), Rhonchi (n), Non-Labored Respirations, Accessory Resp Muscle Use (n) and Stridor (n)
GI: Soft, Non Distended and Non Tender
Neurology: Awake, Alert and No Motor Deficits
Skin: Warm, Good Color, Cyanosis (n), Jaundice (n) and Rash (n)
Labs/Micro/Reports
Lab Data
11/17/23 03:19
11/17/23 03:19
Laboratory Results
11/16/23
19:28
PT 27.3 H
INR 2.50
APTT 40.4 H
Microbiology
11/14/23 09:04 Nose MRSA Screen - Final
No Methicillin Resistant Staphylococcus aureus isolated.
--- NOTE | 2023-11-17 08:16 | W.PN.CD ---
Today's Communication / Plan
-
consider lasix
neuro c/s
Impression / Plan
-
BACKGROUND: 72M with complaints of exertional angina who was found to have severe multivessel CAD by coronary angiography.
Real Estate Financial Analyst: Dr. Tucker
MCAD S/P CABG x 5 (UPTON-LAD, TERRIE-Diag, TERRIE-OM, Ao-SVG-PDA/PVBR) by Dr. Tilley on 11/15/2023
-SILAS with preserved EF pre and post revascularization without RWMA
-EKG with anterior ST elevation, limited STAT TTE without regional wall motion abnormality
-repeat EKG with resolustion of JACQUELINE
-Follow telemetry
-continue DAPT,atorva,metoprolol
-Weight is up from 11/14 from 77.4 to 80.7 kg, decreased lung sounds b/l consider lasix
PAD
-Total proximal right internal carotid artery occlusion and tandem 50% and 50-60% proximal left internal carotid artery stenoses
-Continue medical therapy with interval ultrasound follow-up for progression of left ICA disease
Suspected CVA:
-studies below
-symptoms improved
-await neuro input
-speech eval ordered
Post oop anemia:
-s/p 1 unit prbc on 11/15 for Hg 7.5
HTN
HLD, resume atorvastatin 40mg daily when able
BUO7a--ko 1.2
Type II DM, Hgba1c 6.5% (improved)
SUBJECTIVE:
Overnight, L facial droop noted with neglect and lt arm weakness. Symptoms improved. He has some random pain, but thinks he is recovering slowly.
He is having minimal pain with breathing trying to take deap breaths
Data:
11/16/23: Limited echocardiogram to assess LV regional and global function with special
�attention to the anterior wall.
�Normal left ventricular size and systolic function.
�No regional wall motion abnormalities are seen.
�Compared to prior study of 10/07/2023 the LV function is unchanged.
Head CT 11/16/23:
1. � No CT evidence for acute intracranial hemorrhage or transcortical infarct.
2. � Moderate bilateral parietal lobe volume loss.
3. � Mild white matter leukoaraiosis in the frontal and parietal lobes.
4. � Severe calcified thickening of the transverse ligament posterior to the dens causing moderate spinal cord compression and central canal stenosis.
NECK CTA 11/16/23:
1. � Complete occlusion of the proximal right internal carotid artery.
2. � Greater than 70% diameter stenosis in the proximal left internal carotid artery.
3. � Greater than 70% diameter stenosis in the pre-foraminal and extradural segments of the left vertebral artery.
4. � Large amount of intraluminal food material in the thoracic esophagus with surrounding esophageal wall thickening (possibly secondary to inflammatory esophagitis or esophageal carcinoma).
5. � Moderate-sized bilateral pleural effusions.
6. � Recent CABG surgery.
7. � Severe calcified thickening of the transverse ligament posterior to the dens causing moderate ventral spinal cord compression and central canal stenosis. Large 1.1 cm erosion in the left side of the C2 vertebral body. A crystal arthropathy
(calcium pyrophosphate dihydrate deposition arthropathy) or rheumatoid arthritis are diagnostic possibilities.
HEAD CTA 11/16/23:
1. � Complete occlusion of the right intracranial internal carotid artery.
2. � Severe greater than 70% diameter stenosis in the intracranial left internal carotid artery.
3. � Collateral blood supply reaching the right middle and anterior cerebral arteries.
4. � 70% diameter stenosis in the intracranial left vertebral artery.
5. � No CT evidence for acute intracranial hemorrhage or hydrocephalus.
�
Physical Exam
Vital Signs/Labs
Vital Signs
Temp Pulse Resp BP Pulse Ox
98.0 F 87 16 154/57 97
11/17/23 04:00 11/17/23 06:00 11/17/23 04:00 11/17/23 06:00 11/17/23 05:00
11/16/23 11/17/23 11/18/23
06:59 06:59 06:59
Actual Weight 80.1 kg 80.7 kg
11/17/23 03:19
11/17/23 03:19
PT 27.3 Sec (11.4-14.6) H 11/16/23 19:28
INR 2.50 11/16/23 19:28
APTT 40.4 Sec (23.4-35.0) H 11/16/23 19:28
Magnesium 1.9 mg/dl (1.6-2.3) 11/17/23 03:19
Physical Exam
Constitutional: No acute distress
Cardiovascular: Rhythm & rate is regular, Pedal edema is absent and Systolic murmur absent
Respiratory: Respiratory effort normal, Wheeze Absent, Crackles Absent, Rhonchi Absent and Other (decreased at the bases)
Neuro/Psych: AO x 3
Data Reviewed
-
Date of Service: November 17, 2023
EKG: Tracing Personally Visualized and interpreted (tele sinus)
[2023-11-17 08:21] LABS: Glucose - Point of Care 156 mg/dl (70-99)
[2023-11-17] MEDS: BACTROBAN 2% OINTMENT 1 APPLIC NASAL ×2 (08:25→21:02)
[2023-11-17] MEDS: FLUSH (NSS) 1 FLUSH IV (08:26)
[2023-11-17] MEDS: OFIRMEV 100 IV (08:26)
[2023-11-17] MEDS: NOVOLOG FLEXPEN-MODERATE RESISTANCE 1 UNITS SC (08:27)
[2023-11-17] MEDS: LASIX 40 MG IV (08:27)
[2023-11-17 08:30] LABS: ACT+ - POC > 1003 Seconds (82-134)
--- NOTE | 2023-11-17 08:30 | PTCARENOTE ---
Resumed care of patient. Walking rounds completed with previous RN. Pt assessed while he was sitting in the chair. Pt alert and oriented x4. C/o 4/10 sternal discomfort-see MAR. Denies nausea and shortness of breath. MAYBERRY with equal strength
throughout. No arm or leg drifts. Mild tongue deviation to the right. No facial droop. Follows all commands. No visual field deficits. No sensation deficits. NSR on tele with rates in the 90s. BP 144/77. Heart tones audible. Bilateral radial pulses
palpable, bilateral DP pulses weakly palpable. Trace generalized edema noted. POX 98% on 4L, titrated to RA, POX 93%. Lungs diminished in the bases. IS encouraged-750mL achieved. No cough noted. Abdomen soft, round, nontender. +BS. Pt reports
passing gas. DTV for this RN, voiding overnight in the urinal. Sternal incision approximated with skin glue-BARBER. Old chest tube sites covered-CDI. Right groin puncture site approximated with skin glue. Right SVG harvest approximated with skin glue.
Right IJ cordis intact infusing NSS KVO. Right forearm 18g PIV intact. See MAR for medication administration. See worklist for complete nursing assessment. Plan of care reviewed and pt in agreement.
[2023-11-17] MEDS: NOVOLOG FLEXPEN 4 UNITS SC (08:45)
--- NOTE | 2023-11-17 08:55 | PTOTSP ---
Speech Language Pathology
Pt seen for speech/language evaluations. No dysarthria noted with adequate diadochokinetic (DDK) rates. Language evaluated via the Quick Aphasia Battery (QAB). Overall score 9.22, WNL. Scored WNL on the following subtests: word comprehension,
grammatical construction, speech motor programming, repetition, reading. Mod impaired (6.25) on sentence comprehension subtest. Suspect deficits are more cognitive related than language. Pt stated he moved from [facility] in '1912.' When asked what
year again, he stated '2012' and did not have awareness of having stated 1912.
Pt also seen for clinical bedside swallow evaluation. Pt reported he had many teeth pulled recently and just had a full upper denture plate made, which he received last week. He reported he is still getting used to the dentures and that he left
them at home on purpose so he wouldn't have to worry about cleaning them while hospitalized. He stated that without his dentures, he is unable to chew. He is only able to mash food against hard palate with tongue. P.O. trials of puree,
minced/moist solids, and thin liquids provided. Pt unable to chew any solid pieces and had to expectorate these. No overt signs of aspiration.
Recommend:
(1) IDDSI Level 4 (Puree) and Thin liquids
(2) Aspiration precautions: sit upright, slow rate
(3) Meds as tolerated
(4) LIVESTOCK JUDGING COACH to continue to follow
--- NOTE | 2023-11-17 09:22 | CON.GI ---
Addendum entered and electronically signed by Danielle Padilla MD 11/17/23 16:02:
I saw and examined the patient.
The [employer] or PA's note was reviewed and I agree with the note.
Comment: 73-year-old male past medical history as below with recent CABG 2 days ago who then had a TIA last night. During the acute episode, he underwent a CT including of his neck which showed a large amount of food in his esophagus with
thickening either thought to be due to esophagitis or esophageal cancer.
In discussion with the patient, his intermittent dysphagia to foods only and he is unable to quantify for how long it has been present for. No issues with liquids. No weight loss. He last send upper endoscopy 20 years ago as well as colonoscopy.
Speech pathology saw the patient and cleared him for regular diet. He is tolerating without any drooling. There is no signs of food impaction or esophageal obstruction.
I had recommended an esophagram tomorrow to evaluate with his possible concern of esophageal cancer although seems less likely. CT surgery wished to hold off on imaging due to his recent surgery. I did explain to the patient there is a small
chance this could represent esophageal cancer. Additionally, we discussed the potential risk of aspiration pneumonia or food impaction if he does have chronic issues with food sitting in his esophagus.
At this juncture, I gave him a prescription for an esophagram to do as an outpatient. If at any point he is stable from CT surgery standpoint this can be ordered as an inpatient. We also provided him with an outpatient appointment on December 26 at
11:30 AM with our nurse practitioner Geno. He should remain on a PPI.
GI will sign off. Please call with any questions or issues.
Original Note:
Consultation
-
Date/Time Consultation Requested: 11/17/23829
Date/Time Consultation Performed: 11/17/23929
Requesting Provider: Rell Dykes PA-C
Performing Provider: ANDRA Agudelo, Leyla Padilla MD
Reason for Consultation: food impaction
Medical History
Chief Complaint / HPI
Chief Complaint: abnormal imaging
History of Present Illness:
Pt is a 73yo with hx HTN, hypercholesterolemia, DM, CKD, IBS, GERD, hernia repair with noted multi vessel CAD with admission for CABG on 11/14. Prior to admission he admits to recent 11 teeth extractions completed 10 and 17 day prior to admission
with some NSAID use with recovery. He was doing well post -op noted 11/15 shortly after eating dinner facial droop with slurred speech, left neglect and arm weakness with concern for TIA. Symptoms did improve after event. During event patient
completed CT head but also CTA of head and neck with no acute intracranial hemorrhage but multiple finding including concern for Right ICA occlusion, left ICA and left vertebral artery stenosis, b/l pleural effusion, ventral spinal cord
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
and asked to eval for concern for food impaction. Prior to evaluation pt was seen by speech and tolerating apple sauce given for evaluation. Pt currently also on ASA and Plavix post CABG.
In reviewing with patient history of chronic GERD on PPI daily. He admits to feeling dysphagia with solids on a chronic basis in mid esophagus without wt loss, hematemesis or regurgitation. No hx prior food impactions. He had EGD years ago
around 1998 and does note recall any abnormal findings. He has rare odynophagia. He had chronic GERD on PPI daily and mild nausea and occasional constipation. He currently denies vomiting, abdominal pain, diarrhea, blood or black in stools. Last
colonoscopy 20 + years ago.
Past Medical History
Past Medical History: GERD, HTN, Hypercholesterolemia, NIDDM, Renal Failure (CKD), Psychiatric (anxiety/depression) and Other (IBS, osteoarthritis, renal stones)
Past Surgical History: Orthopedic (ORIF wrist ), Urological (lithotripsy) and Other (cataracts, hernia repair)
Social History
Tobacco: Non-Smoker
Alcohol: None
Drug: None
Personal:
Living: With Family
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
Family History
Family History: Other (no family hx colon CA, esophageal CA)
Allergies / Home Medications
Allergy/AdvReac Type Severity Reaction Status Date / Time
aspirin Allergy Nausea / Verified 11/09/23 14:30
Vomiting
oxycodone [From Percodan] Allergy Shortness Verified 11/09/23 14:30
of Breath
Medication Instructions Recorded
aspirin 81 mg tablet,delayed 81 mg PO DAILY Blood Clot 10/04/23
release Prevention/Tx
atorvastatin 40 mg tablet 40 mg PO DAILY High Cholesterol 10/04/23
citalopram 20 mg tablet 20 mg PO HS Mental Health/Anxiety 10/04/23
insulin glargine 100 unit/mL (3 10 unit SC QPM Diabetes 10/04/23
mL) subcutaneous pen (Basaglar
KwikPen U-100 Insulin)
levocetirizine 5 mg tablet 5 mg PO QPM Allergies 10/04/23
lisinopril 20 1 tab PO DAILY Blood Pressure 10/04/23
mg-hydrochlorothiazide 25 mg tablet
metformin 500 mg tablet 1,000 mg PO BID Diabetes 10/04/23
nitroglycerin 0.4 mg sublingual 0.4 mg sublingual [id number] PRN 10/04/23
tablet chest pain #25 tabs
pantoprazole 40 mg tablet,delayed 40 mg PO DAILY GERD 10/04/23
release
azelastine 137 mcg (0.1 %) nasal 1 spray intranasal TID Congestion 11/09/23
spray aerosol
azithromycin 500 mg tablet 500 mg PO DAILY Infection 11/09/23
isosorbide mononitrate 30 mg 30 mg PO DAILY Heart 11/16/23
tablet,extended release 24 hr Disease/Condition
metoprolol succinate 25 mg 25 mg PO DAILY Blood Pressure 11/16/23
tablet,extended release 24 hr
Review of Systems
-
History Source: Patient and Family
Constitutional: Reports No Symptoms
EENT: Reports No Symptoms
Respiratory: Reports Trouble Breathing (prior to admission )
Cardiac: Reports Chest Pain (prior to admission)
Abdomen/GI: Reports Constipated (at times ) and Other (chronic dysphagia)
: Reports No Symptoms
Musculoskeletal: Reports No Symptoms
Skin: Reports No Symptoms
Neurological: Reports No Symptoms
Endocrine: Reports No Symptoms
Hematologic/Lymphatic: Reports No Symptoms
Vital Signs
Temp Pulse Resp BP Pulse Ox
98.2 F 100 20 144/77 93
11/17/23 08:00 11/17/23 08:00 11/17/23 08:00 11/17/23 08:00 11/17/23 08:30
Physical Exam
Exam
General: Well Developed, Well Nourished and No Apparent Distress
HEENT: Normocephalic and Anicteric
Respiratory: Clear and Other (mid sternal incision intact )
Cardiac: Regular Rhythm
GI: Soft, Non Tender and Non Distended
Musculoskeletal: No Clubbing and No Cyanosis
Skin: Warm and Dry
Neuro: Awake, Alert and AO x 3
Psych: Calm
Results
WBC 11.5 10^3/uL (4.8-10.8) H 11/17/23 03:19
Hgb 8.4 g/dL (13.0-18.0) L 11/17/23 03:19
Hct 24.5 % (39.0-52.0) L 11/17/23 03:19
MCV 80.1 fL (80.0-94.0) 11/17/23 03:19
Plt Count 193 10^3/uL (130-400) 11/17/23 03:19
Absolute Neuts (auto) 5.4 10^3/uL (1.4-6.5) 11/14/23 09:04
PT 27.3 Sec (11.4-14.6) H 11/16/23 19:28
INR 2.50 11/16/23 19:28
APTT 40.4 Sec (23.4-35.0) H 11/16/23 19:28
Sodium 136 mmol/L (135-145) 11/17/23 03:19
Potassium 4.0 mmol/L (3.5-5.1) 11/17/23 03:19
Chloride 106 mmol/L (98-107) 11/17/23 03:19
Carbon Dioxide 20 mmol/L (22-30) L 11/17/23 03:19
BUN 24 mg/dl (9-20) H 11/17/23 03:19
Creatinine 1.4 mg/dL (0.7-1.3) H 11/17/23 03:19
Calcium 8.4 mg/dl (8.4-10.2) 11/17/23 03:19
Total Bilirubin 0.5 mg/dl (0.2-1.3) 11/16/23 19:28
AST 74 U/L (17-59) H 11/16/23 19:28
ALT 14 U/L (0-50) 11/16/23 19:28
Alkaline Phosphatase 60 U/L (38-126) 11/16/23 19:28
Diagnostic Image Results:
11/17/23 CXR
Right basilar subsegmental atelectasis and small bilateral pleural effusions again noted.
No pneumothorax.
11/16/23 CT head
1. � No CT evidence for acute intracranial hemorrhage or transcortical infarct.
2. � Moderate bilateral parietal lobe volume loss.
3. � Mild white matter leukoaraiosis in the frontal and parietal lobes.
4. � Severe calcified thickening of the transverse ligament posterior to the dens causing moderate spinal cord compression and central canal stenos
11/16/23
NECK CTA:
1. � Complete occlusion of the proximal right internal carotid artery.
2. � Greater than 70% diameter stenosis in the proximal left internal carotid artery.
3. � Greater than 70% diameter stenosis in the pre-foraminal and extradural segments of the left vertebral artery.
4. � Large amount of intraluminal food material in the thoracic esophagus with surrounding esophageal wall thickening (possibly secondary to inflammatory esophagitis or esophageal carcinoma).
5. � Moderate-sized bilateral pleural effusions.
6. � Recent CABG surgery.
7. � Severe calcified thickening of the transverse ligament posterior to the dens causing moderate ventral spinal cord compression and central canal stenosis. Large 1.1 cm erosion in the left side of the C2 vertebral body. A crystal arthropathy
(calcium pyrophosphate dihydrate deposition arthropathy) or rheumatoid arthritis are diagnostic possibilities.
HEAD CTA:
1. � Complete occlusion of the right intracranial internal carotid artery.
2. � Severe greater than 70% diameter stenosis in the intracranial left internal carotid artery.
3. � Collateral blood supply reaching the right middle and anterior cerebral arteries.
4. � 70% diameter stenosis in the intracranial left vertebral artery.
5. � No CT evidence for acute intracranial hemorrhage or hydrocephalus.
Prior GI Procedures:
EGD: 1998 recalls as stable
Colonoscopy: 20 + years ago
Assessment / Plan
-
Pt is a 73yo with hx HTN, hypercholesterolemia, DM, CKD, IBS, GERD, hernia repair with noted multi vessel CAD with admission for CABG on 11/14. Prior to admission he admits to recent 11 teeth extractions completed 10 and 17 day prior to admission
with some NSAID use with recovery. He was doing well post -op noted 11/15 shortly after eating dinner facial droop with slurred speech, left neglect and arm weakness with concern for TIA. Symptoms did improve after event. During event patient
completed CT head but also CTA of head and neck with no acute intracranial hemorrhage but multiple finding including concern for Right ICA occlusion, left ICA and left vertebral artery stenosis, b/l pleural effusion, ventral spinal cord
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
and asked to eval for concern for food impaction. Prior to evaluation pt was seen by speech and tolerating apple sauce given for evaluation. Pt currently also on ASA and Plavix post CABG.
-abnormal CT with concern for food impaction and wall thickening-- esophagitis vs mass vs other
-hx chronic dysphagia with solids
-11/15 TIA with facial weakness, slurred speech now resolved
-s/p CABG 11/14 on post-op ASA and Plavix
-recent multiple dental extraction with occasional NSAID use
-CT with concern for right ICA occlusion, and ICA and vert art stenosis
-CT with spinal disease
-GERD stable on chronic Protonix PO daily
-chronic constipation - stable
other med problems:
-HTN
-hyperlipidemia
-DM
-CKD
-IBS
PLAN:
etiology of chronic dysphagia and food retention noted on imaging unclear -- to note-- imaging was completed within 1-2 hours after eating dinner
pt recently consumed apple sauce this am with speech therapy without difficulty
will proceed with pureed diet with close monitoring
plan for esophagram in AM with barium tablet to further evaluate concern for esophageal thickening
may need eventual EGD
cont PPI daily
cont senna with hx constipation
remain on RTC tylenol with recent teeth extraction -- avoid NSAIDs for pain control but ok for daily ASA and also remains on Plavix post-op
will follow
-
-
Thank you for consultation and allowing me to participate in the patient's care. Please call the [facility] GI physician during the after hours with any questions or concerns.
[2023-11-17] MEDS: LIPITOR 40 MG PO (10:15)
[2023-11-17] MEDS: LOW STRENGTH ASPIRIN 81 MG PO (10:15)
[2023-11-17] MEDS: PLAVIX 75 MG PO (10:15)
[2023-11-17] MEDS: LOPRESSOR 12.5 MG PO (10:15)
[2023-11-17] MEDS: SENOKOT-S 1 TABLET PO ×2 (10:15→20:57)
[2023-11-17] MEDS: MAGNESIUM OXIDE 500 MG PO ×2 (10:15→20:57)
[2023-11-17] MEDS: PROTONIX 40 MG PO (10:15)
[2023-11-17] MEDS: NEURONTIN PO (10:19)
[2023-11-17] MEDS: PACERONE PO (10:19)
[2023-11-17] MEDS: GLUCOPHAGE 1000 MG PO ×2 (11:33→17:14)
[2023-11-17] MEDS: NOVOLOG FLEXPEN-MODERATE RESISTANCE SC ×2 (11:33→11:41)
[2023-11-17 11:34] LABS: Glucose - Point of Care 178 mg/dl (70-99)
--- NOTE | 2023-11-17 11:44 | PTCARENOTE ---
Pt reassessed. No neurological deficits noted. NSR on tele with rates in the 80s-90s. BP stable 147/54. POX 93% on RA. Surgical sites stable. No acute changes from previous assessment.
--- NOTE | 2023-11-17 12:01 | CON.NEURO ---
Consultation
Order
Date of Consultation: 11/17/23
Reason for Consult: stroke
Neurology Consultation Note
HPI: This is a 73-year-old ambidextrous man who underwent elective CABG at [facility] on 11/15/2023.
Stroke alert was activated 11/16/2023 at 19:11 due to transient left facial/arm weakness and dysarthria lasting for <24h. BP 137/63, FS 217, Hb 7.5.
Mr. Cline does not recall the event. No reports of abnormal movements, headache, change in speech or strength.
CT head�no acute infarcts
CTA head/neck�R ICA occlusion(no dissection), 70% of L ICA stenosis.
Tele: NSR
SILAS(11/15/2023)- no evidence of LA thrombus or PFO
PMH: Carotid artery disease CAD, HTN, DLP, DM, CKD, NEREYDA, nephrolithiasis, OA
PSH:CABG(11/15/2023), lithotripsy, L wrist ORIF, bilateral cataract extraction
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
FH: Not contributory to current presentation
All: Aspirin, oxycodone
ROS:Constitutional: Negative. Negative for chills, fever and unexpected weight change.
HENT: Positive for hearing impaired
Eyes: Negative. Negative for photophobia, pain and visual disturbance.
Respiratory: Negative for cough, choking and shortness of breath.
Cardiovascular: Positive for chest soreness
Gastrointestinal: Negative for abdominal pain and vomiting.
Endocrine: Negative. Negative for cold intolerance.
Genitourinary: Negative for dysuria, flank pain and urgency.
Musculoskeletal: Negative for back pain, gait problem, neck pain and neck stiffness.
Skin: Negative for rash.
Allergic/Immunologic: Negative. Negative for immunocompromised state.
Neurological: Positive for chronic tingling in the
Psychiatric/Behavioral: Negative for behavioral problems, confusion and hallucinations.
General: Well developed. In no acute distress.
Cardio: Regular rate. Extremities are without cyanosis or edema.
Neuro:
Mental Status: Alert, oriented to person, place, and date. Normal attention and recall. Good fund of knowledge. Follows complex requests across the midline. Comprehension, naming, and repetition intact.
Cranial Nerves: Pupils are equally round, surgical. EOMs full. Visual jenkins full to confrontation. No ptosis. No nystagmus. V1-V3 intact to light touch and pinprick bilaterally, symmetric. Face symmetric. Poor hearing AU. The palate
elevated well. SCMs and traps 5/5. Tongue midline. No dysarthria.
Motor: Normal bulk and tone. No pronator or arm drift. Strength 5/5 throughout. No clonus.
Reflexes: Limited exam due to positioning. Plantar reflex-flexor BL
Sensory: Normal vibration and JPS.
Coordination: No dysmetria or tremor.
Gait: deferred
Assessment and Plan:
I. TIA, less likely seizure
II. Severe L ICA stenosis, asymptomatic
III. 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
-Continue Telemetry monitoring
-Maintain adequate cerebral perfusion pressure in view of severe left ICA stenosis
-Avoid cerebral hypoperfusion.
-Brain MRI without nereyda
-Continue aspirin 81 mg once a day and Plavix 75 mg once a day
-LDL goal<70.
-Vascular surgery consult
-OP Rheumatology consult
I personally reviewed all radiology and labs along with past medical records pertinent to current medical problems. Total time spent in patient care is 60 minutes.
Thank you for allowing us to participate in the care of this patient. We will continue to follow. Please do not hesitate to contact us with any questions or concerns.
Subjective/Objective
Subjective Data
Date of Service: November 17, 2023
Objective Data
Vital Signs
Temp Pulse Resp BP Pulse Ox
36.6 C 93 16 147/54 93
11/17/23 11:43 11/17/23 11:43 11/17/23 11:43 11/17/23 11:04 11/17/23 11:43
Lab Results
11/17/23 03:19
11/17/23 03:19
PT 27.3 Sec (11.4-14.6) H 11/16/23 19:28
INR 2.50 11/16/23 19:28
APTT 40.4 Sec (23.4-35.0) H 11/16/23 19:28
Sodium 136 mmol/L (135-145) 11/17/23 03:19
Potassium 4.0 mmol/L (3.5-5.1) 11/17/23 03:19
BUN 24 mg/dl (9-20) H 11/17/23 03:19
Glucose 181 mg/dl (70-99) H 11/17/23 03:19
Calcium 8.4 mg/dl (8.4-10.2) 11/17/23 03:19
Patient Allergies
aspirin Allergy (Verified 11/09/23 14:30)
Nausea / Vomiting
oxycodone [From Percodan] Allergy (Verified 11/09/23 14:30)
Shortness of Breath
Medications
-
Active Medications
Generic Name Dose Route Start Last Admin
Trade Name Freq PRN Reason Stop Dose Admin
Acetaminophen 650 mg 11/15/23 12:37
Acetaminophen 325 Mg Tablet PO 12/13/23 12:36
Q4HPRN PRN
mild pain,headache,temp >101F
Acetaminophen 1,000 mg 11/15/23 14:00 11/17/23 06:16
Acetaminophen 500 Mg Tablet PO 12/13/23 13:59 Not Given
TID@0600,1400,2200 ERASMO
Albuterol 2 puff 11/15/23 12:37
Albuterol Hfa [90 Mcg/Dose] Inhaler INH
R Q4HPRN PRN
wheezing/shortness of breath
Protocol
Albuterol Sulfate 2.5 mg 11/15/23 12:37
Albuterol Nebs 2.5 Mg/3 Ml Ampul INH
R Q4HPRN PRN
wheezing/shortness of breath
Protocol
Artificial Tears 1 drops 11/17/23 03:32
Artificial Tears Pf (Refresh) 10 Drop Droperette OPHTH 12/15/23 03:31
QIDPRN PRN
dryness, discomfort
Aspirin 300 mg 11/16/23 08:00
Aspirin 300 Mg Rectal Suppository RECTAL 12/14/23 07:59
DAILYPRN PRN
pt not taking PO aspirin
Aspirin 81 mg 11/16/23 08:00 11/17/23 10:15
Aspirin 81 Mg Chewable Tablet PO 12/14/23 07:59 81 mg
DAILY ERASMO Administration
Atorvastatin Calcium 40 mg 11/15/23 12:37 11/17/23 10:15
Atorvastatin (Lipitor) 40 Mg Tablet PO 12/13/23 12:36 40 mg
DAILY ERASMO Administration
Bisacodyl 10 mg 11/15/23 12:37
Bisacodyl 10 Mg Rectal Suppository RECTAL 12/13/23 12:36
DAILYPRN PRN
constipation
Citalopram Hydrobromide 20 mg 11/16/23 22:00 11/16/23 22:08
Citalopram 20 Mg Tablet PO 12/14/23 21:59 Not Given
HS ERASMO
Clopidogrel Bisulfate 75 mg 11/16/23 08:00 11/17/23 10:15
Clopidogrel 75 Mg Tablet PO 12/14/23 07:59 75 mg
DAILY ERASMO Administration
Dextrose 12.5 grams 11/17/23 11:35
Dextrose 50% (0.5 Grams/Ml) 50 Ml Syringe IV 12/15/23 11:34
[id number] PRN
hypoglycemia
Protocol
Glucagon 1 mg 11/17/23 11:35
Glucagon 1 Mg Vial IM 12/15/23 11:34
PRN PRN
hypoglycemia
Protocol
Sodium Chloride 500 mls @ 10 mls/hr 11/15/23 12:37 11/16/23 09:41
Nss IV 12/13/23 06:51 Not Given
CORDIS ERASMO
Acetaminophen 1,000 mg in 100 mls @ 400 mls/hr 11/16/23 21:33 11/17/23 08:26
Ofirmev IV 11/17/23 21:32 100 mls
Q6HPRN PRN Administration
mild-mod pain
Protocol
Insulin Glargine 15 units/ 0.15 mls @ 0 mls/hr 11/17/23 11:39
Device SC 12/14/23 17:59
QPM ERASMO
As Directed
Insulin Aspart 0 units 11/17/23 11:30
Insulin Aspart High Resistance 300 Units/3 Ml Pen.Injctr SC 12/15/23 11:29
AC ERASMO
Protocol
Insulin Aspart 5 units 11/17/23 11:45
Insulin Aspart (100 Units/Ml) 3 Ml Flexpen SC 12/15/23 11:44
AC ERASMO
Magnesium Hydroxide 30 ml 11/15/23 12:37
Milk Of Magnesia 30 Ml Cup PO 12/13/23 12:36
BIDPRN PRN
if no BM in three days
Magnesium Oxide 500 mg 11/16/23 08:00 11/17/23 10:15
Magnesium Oxide 500 Mg Tablet PO 12/14/23 07:59 500 mg
BID ERASMO Administration
Metformin HCl 1,000 mg 11/16/23 17:00 11/17/23 11:33
Metformin 500 Mg Regular Release Tablet PO 12/14/23 16:59 1,000 mg
BID@0800,1700 ERASMO Administration
Metoprolol Tartrate 12.5 mg 11/16/23 08:00 11/17/23 10:15
Metoprolol 12.5 Mg Regular Release Dose (1/2 Of 25 Mg Tablet) PO 12/14/23 07:59 12.5 mg
Q12 ERASMO Administration
Mupirocin 0 applic 11/15/23 20:00 11/17/23 08:25
Mupirocin 2% (Ointment) 22 Gram Tube NASAL 11/19/23 08:01 1 applic
Q12 ERASMO Administration
Ondansetron HCl 4 mg 11/15/23 12:37
Ondansetron 4 Mg/2 Ml Vial IV 12/13/23 12:36
Q8HPRN PRN
nausea/vomiting
Pantoprazole Sodium 40 mg 11/16/23 08:00 11/17/23 10:15
Pantoprazole 40 Mg Delayed Release Tablet PO 12/14/23 07:59 40 mg
DAILY ERASMO Administration
Senna/Docusate Sodium 1 tablet 11/15/23 20:00 11/17/23 10:15
Docusate W/Senna (Kristel-Colace) Tablet PO 12/13/23 19:59 1 tablet
Q12 ERASMO Administration
Sodium Chloride 0 flush 11/15/23 13:00 11/17/23 08:26
Sodium Chloride 0.9% (Flush) Syringe IV 12/13/23 12:59 1 flush
PER PROTOCOL ERASMO Administration
Sodium Chloride 1 sprays 11/16/23 21:36
Sodium Chloride 0.65% Nasal [place] 45 Ml Bottle NASAL 12/14/23 21:35
QIDPRN PRN
dryness, post nasal drip
Home Medications
Medication Instructions Recorded
aspirin 81 mg tablet,delayed 81 mg PO DAILY Blood Clot 10/04/23
release Prevention/Tx
atorvastatin 40 mg tablet 40 mg PO DAILY High Cholesterol 10/04/23
citalopram 20 mg tablet 20 mg PO HS Mental Health/Anxiety 10/04/23
insulin glargine 100 unit/mL (3 10 unit SC QPM Diabetes 10/04/23
mL) subcutaneous pen (Basaglar
KwikPen U-100 Insulin)
levocetirizine 5 mg tablet 5 mg PO QPM Allergies 10/04/23
lisinopril 20 1 tab PO DAILY Blood Pressure 10/04/23
mg-hydrochlorothiazide 25 mg tablet
metformin 500 mg tablet 1,000 mg PO BID Diabetes 10/04/23
nitroglycerin 0.4 mg sublingual 0.4 mg sublingual [id number] PRN 10/04/23
tablet chest pain #25 tabs
pantoprazole 40 mg tablet,delayed 40 mg PO DAILY GERD 10/04/23
release
azelastine 137 mcg (0.1 %) nasal 1 spray intranasal TID Congestion 11/09/23
spray aerosol
azithromycin 500 mg tablet 500 mg PO DAILY Infection 11/09/23
isosorbide mononitrate 30 mg 30 mg PO DAILY Heart 11/16/23
tablet,extended release 24 hr Disease/Condition
metoprolol succinate 25 mg 25 mg PO DAILY Blood Pressure 11/16/23
tablet,extended release 24 hr
Vital Signs and Labs
-
Vital Signs and Labs:
Vital Signs
Temp Pulse Resp BP Pulse Ox
36.6 C 93 16 147/54 93
11/17/23 11:43 11/17/23 11:43 11/17/23 11:43 11/17/23 11:04 11/17/23 11:43
Lab Results
11/17/23 03:19
11/17/23 03:19
PT 27.3 Sec (11.4-14.6) H 11/16/23 19:28
INR 2.50 11/16/23 19:28
APTT 40.4 Sec (23.4-35.0) H 11/16/23 19:28
Sodium 136 mmol/L (135-145) 11/17/23 03:19
Potassium 4.0 mmol/L (3.5-5.1) 11/17/23 03:19
BUN 24 mg/dl (9-20) H 11/17/23 03:19
Glucose 181 mg/dl (70-99) H 11/17/23 03:19
Calcium 8.4 mg/dl (8.4-10.2) 11/17/23 03:19
Home Medications
-
Home Medications
aspirin 81 mg tablet,delayed release 81 mg PO DAILY Blood Clot Prevention/Tx 10/04/23
atorvastatin 40 mg tablet 40 mg PO DAILY High Cholesterol 10/04/23
citalopram 20 mg tablet 20 mg PO HS Mental Health/Anxiety 10/04/23
insulin glargine 100 unit/mL (3 mL) subcutaneous pen (Basaglar KwikPen U-100 Insulin) 10 unit SC QPM Diabetes 10/04/23
levocetirizine 5 mg tablet 5 mg PO QPM Allergies 10/04/23
lisinopril 20 mg-hydrochlorothiazide 25 mg tablet 1 tab PO DAILY Blood Pressure 10/04/23
metformin 500 mg tablet 1,000 mg PO BID Diabetes 10/04/23
nitroglycerin 0.4 mg sublingual tablet 0.4 mg sublingual [id number] PRN chest pain #25 tabs 10/04/23
pantoprazole 40 mg tablet,delayed release 40 mg PO DAILY GERD 10/04/23
azelastine 137 mcg (0.1 %) nasal spray aerosol 1 spray intranasal TID Congestion 11/09/23
azithromycin 500 mg tablet 500 mg PO DAILY Infection 11/09/23
isosorbide mononitrate 30 mg tablet,extended release 24 hr 30 mg PO DAILY Heart Disease/Condition 11/16/23
metoprolol succinate 25 mg tablet,extended release 24 hr 25 mg PO DAILY Blood Pressure 11/16/23
Medications
-
Medications:
Generic Name Dose Route Start Last Admin
Trade Name Freq PRN Reason Stop Dose Admin
Acetaminophen 650 mg 11/15/23 12:37
Acetaminophen 325 Mg Tablet PO 12/13/23 12:36
Q4HPRN PRN
mild pain,headache,temp >101F
Acetaminophen 1,000 mg 11/15/23 14:00 11/17/23 06:16
Acetaminophen 500 Mg Tablet PO 12/13/23 13:59 Not Given
TID@0600,1400,2200 ERASMO
Albuterol 2 puff 11/15/23 12:37
Albuterol Hfa [90 Mcg/Dose] Inhaler INH
R Q4HPRN PRN
wheezing/shortness of breath
Protocol
Albuterol Sulfate 2.5 mg 11/15/23 12:37
Albuterol Nebs 2.5 Mg/3 Ml Ampul INH
R Q4HPRN PRN
wheezing/shortness of breath
Protocol
Artificial Tears 1 drops 11/17/23 03:32
Artificial Tears Pf (Refresh) 10 Drop Droperette OPHTH 12/15/23 03:31
QIDPRN PRN
dryness, discomfort
Aspirin 300 mg 11/16/23 08:00
Aspirin 300 Mg Rectal Suppository RECTAL 12/14/23 07:59
DAILYPRN PRN
pt not taking PO aspirin
Aspirin 81 mg 11/16/23 08:00 11/17/23 10:15
Aspirin 81 Mg Chewable Tablet PO 12/14/23 07:59 81 mg
DAILY ERASMO Administration
Atorvastatin Calcium 40 mg 11/15/23 12:37 11/17/23 10:15
Atorvastatin (Lipitor) 40 Mg Tablet PO 12/13/23 12:36 40 mg
DAILY ERASMO Administration
Bisacodyl 10 mg 11/15/23 12:37
Bisacodyl 10 Mg Rectal Suppository RECTAL 12/13/23 12:36
DAILYPRN PRN
constipation
Citalopram Hydrobromide 20 mg 11/16/23 22:00 11/16/23 22:08
Citalopram 20 Mg Tablet PO 12/14/23 21:59 Not Given
HS ERASMO
Clopidogrel Bisulfate 75 mg 11/16/23 08:00 11/17/23 10:15
Clopidogrel 75 Mg Tablet PO 12/14/23 07:59 75 mg
DAILY ERASMO Administration
Dextrose 12.5 grams 11/17/23 11:35
Dextrose 50% (0.5 Grams/Ml) 50 Ml Syringe IV 12/15/23 11:34
[id number] PRN
hypoglycemia
Protocol
Glucagon 1 mg 11/17/23 11:35
Glucagon 1 Mg Vial IM 12/15/23 11:34
PRN PRN
hypoglycemia
Protocol
Sodium Chloride 500 mls @ 10 mls/hr 11/15/23 12:37 11/16/23 09:41
Nss IV 12/13/23 06:51 Not Given
CORDIS ERASMO
Acetaminophen 1,000 mg in 100 mls @ 400 mls/hr 11/16/23 21:33 11/17/23 08:26
Ofirmev IV 11/17/23 21:32 100 mls
Q6HPRN PRN Administration
mild-mod pain
Protocol
Insulin Glargine 15 units/ 0.15 mls @ 0 mls/hr 11/17/23 11:39
Device SC 12/14/23 17:59
QPM ERASMO
As Directed
Insulin Aspart 0 units 11/17/23 11:30 11/17/23 12:07
Insulin Aspart High Resistance 300 Units/3 Ml Pen.Injctr SC 12/15/23 11:29 2 units
AC ERASMO Administration
Protocol
Insulin Aspart 5 units 11/17/23 11:45 11/17/23 12:07
Insulin Aspart (100 Units/Ml) 3 Ml Flexpen SC 12/15/23 11:44 5 units
AC ERASMO Administration
Magnesium Hydroxide 30 ml 11/15/23 12:37
Milk Of Magnesia 30 Ml Cup PO 12/13/23 12:36
BIDPRN PRN
if no BM in three days
Magnesium Oxide 500 mg 11/16/23 08:00 11/17/23 10:15
Magnesium Oxide 500 Mg Tablet PO 12/14/23 07:59 500 mg
BID ERASMO Administration
Metformin HCl 1,000 mg 11/16/23 17:00 11/17/23 11:33
Metformin 500 Mg Regular Release Tablet PO 12/14/23 16:59 1,000 mg
BID@0800,1700 ERASMO Administration
Metoprolol Tartrate 12.5 mg 11/16/23 08:00 11/17/23 10:15
Metoprolol 12.5 Mg Regular Release Dose (1/2 Of 25 Mg Tablet) PO 12/14/23 07:59 12.5 mg
Q12 ERASMO Administration
Mupirocin 0 applic 11/15/23 20:00 11/17/23 08:25
Mupirocin 2% (Ointment) 22 Gram Tube NASAL 11/19/23 08:01 1 applic
Q12 ERASMO Administration
Ondansetron HCl 4 mg 11/15/23 12:37
Ondansetron 4 Mg/2 Ml Vial IV 12/13/23 12:36
Q8HPRN PRN
nausea/vomiting
Pantoprazole Sodium 40 mg 11/16/23 08:00 11/17/23 10:15
Pantoprazole 40 Mg Delayed Release Tablet PO 12/14/23 07:59 40 mg
DAILY ERASMO Administration
Senna/Docusate Sodium 1 tablet 11/15/23 20:00 11/17/23 10:15
Docusate W/Senna (Kristel-Colace) Tablet PO 12/13/23 19:59 1 tablet
Q12 ERASMO Administration
Sodium Chloride 0 flush 11/15/23 13:00 11/17/23 08:26
Sodium Chloride 0.9% (Flush) Syringe IV 12/13/23 12:59 1 flush
PER PROTOCOL ERASMO Administration
Sodium Chloride 1 sprays 11/16/23 21:36
Sodium Chloride 0.65% Nasal [place] 45 Ml Bottle NASAL 12/14/23 21:35
QIDPRN PRN
dryness, post nasal drip
[2023-11-17] MEDS: NOVOLOG FLEXPEN 5 UNITS SC ×2 (12:07→17:14)
[2023-11-17] MEDS: NOVOLOG FLEXPEN-HIGH RESISTANCE 2 UNITS SC ×2 (12:07→17:14)
--- NOTE | 2023-11-17 13:36 | CM ---
Reviewed chart. Met with Mr. Cline to review discharge plans. He states he is feeling okay. Prior to admission he resides with his sister, fuxliys-aa-arc nd nephew in a two story home. He has ten steps to get to bedroom/full bathroom. Prior to
admission he was independent with ambulation and adls. He ambulated a 120 feet with a rolling walker. He currently does not have any DME in the home. If he needs a rolling walker at [facility], [place] will need a script to get on from therapy. His
[id number] is home currently due to spinal surgery. His sister works outside the home. Case management will continue to follow his progress to see if he will have any skilled care needs. Medical work-up in progress. The discharge plan is to
reurn home with his sister,tpazjig-rc-vby and nephew with a home visit by the Cardiothoracic Transitional Care Nurse when medically stable.
--- NOTE | 2023-11-17 13:48 | W.PN.UPDATE ---
Update Note
Progress Note Update
Cardiothoracic surgery update note:
Follow up regarding proceeding events from yesterday evening/overnight.
Stroke alert called 11/16/23 at 19:11 due to an array of symptoms consisting of: transient left arm weakness, left facial droop, dysarthria, and suspected left visual field neglect.
Results of the the CT head without contrast reveals no acute infarcts
Results of the CTA of the head/neck reveals complete right ICA occlusion (no dissection), 70% left ICA stenosis
After the patient returned from CT scan symptoms were already improving and nearly resolved.
Patient remained neurologically stable the remainder of the night as well as this morning.
No new or recurring symptoms/event noted since yesterday evening.
Neurology consulted. Dr. Mary MD. assessed patient at bedside.
Neurological findings and diagnosis consistent with TIA.
Symptoms resolved and patient continues to be neurologically asymptomatic
This should be noted and corrected from previously documented update note that gives mention to a 'suspected CVA.'
Moving forward discussion was had with Neurology.
MRI without Gadolinium was requested.
In order to obtain this study epicardial pacing wires will need to be cut.
CT Surgery would like to keep pacing wires one more night given patient is only POD#2
We will re-evaluate for MRI tomorrow afternoon. This was discussed with Dr. Mary MD. who assured this was not urgent.
Continue Aspirin 81 mg daily and Plavix 75 mg daily
�
[2023-11-17] MEDS: TYLENOL 1000 MG PO ×2 (14:23→20:56)
[2023-11-17] MEDS: NSS IV (14:23)
--- NOTE | 2023-11-17 15:24 | PTCARENOTE ---
Pt reassessed. No neurological deficits noted. Pt resting in the chair. VSS. SR-ST with activity. BP 130/87. POX 96% on RA. Surgical sites stable. Old chest tube dressing changed. Pt ambulated 250' in the hess & tolerated. Assisted back to bed for a
nap.
[2023-11-17 15:56] LABS: HDL Cholesterol 49 mg/dl; LDL Cholesterol, Calculated 9 mg/dl; Total Cholesterol 77 mg/dl (50-199); Triglyceride 95 mg/dl (10-149); Very Low Density Lipoprotein 19 mg/dl (0-30)
[2023-11-17] MEDS: LANTUS 0.149999999999999994 UNITS SC (17:14)
[2023-11-17 17:16] LABS: Glucose - Point of Care 168 mg/dl (70-99)
[2023-11-17] MEDS: CELEXA 20 MG PO (20:56)
[2023-11-17] MEDS: LOPRESSOR 25 MG PO (20:57)
[2023-11-17 22:27] LABS: Glucose - Point of Care 88 mg/dl (70-99)
[2023-11-18] VITALS (13 sets, daily range): BP systolic 116–132; BP diastolic 55–71; PULSE 82–88; BMI 30.4
--- NOTE | 2023-11-18 03:44 | W.PN.CT ---
Today's Communication / Plan
-
-pod #3
-doing well, no issues overnight. Neurologically appears to be back to baseline. Ambulates with walker
-no overt aspiration, on puree diet with thin liquids (recent multiple teeth extraction). Meds resumed
-diuresed with iv Lasix on 11/16 (UO 1050). O2 was able to be weaned off - pOx 93% on RA
-follow CXR (pending)
-follow Cr (pending)
-plans for possible head MRI in near future after epicardial pw are cut
-plans for outpatient GI workup
-continue PT/OT
-encourage IS, OOB
-appreciate everyone's input
Assessment / Plan
-
Assessment:
-S/P Off Pump Cabg x 5 (randall- lad, danita - diag, danita - om, ao- svg - pda/pvbr)/MALENA clip/ revh/ RSF/TTFM, by Dr. Tilley, 11/15/23, pod#3
-Severe 3v CAD
-LVEF 60-65% per intraop SILAS
-HTN
-Hyperlipidemia
-T2DM (hgb A1C 6.5)
-CKD stage 3b (cr 1.7-2.1)
-Renal calculi/Urinary frequency
-Left inguinal hernia
-GERD/Hiatal hernia
-IBS
-OA
-Right ICA occlusion
-Post nasal drip
-Anxiety/depression
-S/p Recent teeth extraction
-S/P lithotripsy
-S/P R inguinal herniorrhaphy
-S/p ORIF of left wrist � � �
-Known significant b/l Carotid dz
� � � � �
� � � � � � � �
-Acute postop blood loss/Anemia on chronic anemia- s/p 1 pRBC 11/16/23
-Acute postop atelectasis/pleural effusions b/l
-Acute postop hypovolemia with subsequent hypervolemia � � �
-Acute postop suspected TIA on 11/15 - sxs have resolved; neurologically appears back at baseline
Head CT 11/16/23:
1. � No CT evidence for acute intracranial hemorrhage or transcortical infarct.
2. � Moderate bilateral parietal lobe volume loss.
3. � Mild white matter leukoaraiosis in the frontal and parietal lobes.
4. � Severe calcified thickening of the transverse ligament posterior to the dens causing moderate spinal cord compression and central canal stenosis.
NECK CTA 11/16/23:
1. � Complete occlusion of the proximal right internal carotid artery.
2. � Greater than 70% diameter stenosis in the proximal left internal carotid artery.
3. � Greater than 70% diameter stenosis in the pre-foraminal and extradural segments of the left vertebral artery.
4. � Large amount of intraluminal food material in the thoracic esophagus with surrounding esophageal wall thickening (possibly secondary to inflammatory esophagitis or esophageal carcinoma).
5. � Moderate-sized bilateral pleural effusions.
6. � Recent CABG surgery.
7. � Severe calcified thickening of the transverse ligament posterior to the dens causing moderate ventral spinal cord compression and central canal stenosis. Large 1.1 cm erosion in the left side of the C2 vertebral body. A crystal arthropathy
(calcium pyrophosphate dihydrate deposition arthropathy) or rheumatoid arthritis are diagnostic possibilities.
HEAD CTA 11/16/23:
1. � Complete occlusion of the right intracranial internal carotid artery.
2. � Severe greater than 70% diameter stenosis in the intracranial left internal carotid artery.
3. � Collateral blood supply reaching the right middle and anterior cerebral arteries.
4. � 70% diameter stenosis in the intracranial left vertebral artery.
5. � No CT evidence for acute intracranial hemorrhage or hydrocephalus.
� � � � � � � �
Discussed patient care with: Nursing and Care Team
Subjective
Procedure
S/P Off Pump Cabg x 5 (randall- lad, danita - diag, danita - om, ao- svg - pda/pvbr)/MALENA clip/ revh/ RSF/TTFM, by Dr. Tilley, 11/15/23, pod#1
-
Date of Service: November 18, 2023
Objective Data
-
PT 27.3 Sec (11.4-14.6) H 11/16/23 19:28
INR 2.50 11/16/23 19:28
APTT 40.4 Sec (23.4-35.0) H 11/16/23 19:28
Vital Signs
Vital Signs
Temp Pulse Resp BP Pulse Ox
98 F 92 16 132/66 93
11/17/23 22:52 11/17/23 22:00 11/17/23 15:26 11/17/23 20:57 11/17/23 22:00
CT Intake/Output/Weight
11/17/23 11/17/23 11/18/23
06:59 18:59 06:59
Intake Total 790 / 1654.8 700 / 700
Output Total 625 / 960 1050 / 1300 250 / 1300
Balance 165 / 694.8 -350 / -600 -250 / -600
SaO2: 93
Physical Exam
-
General: Awake and AOx3
Cardiovascular: Regular rate & rhythm, No Murmurs, No Rub and Other (+ JVD)
Respiratory: Decreased Breath Sounds
Sternum: Stable
Incision: Clean, Dry and Dressing Intact
Extremities: Other (trace edema b/l, 1+ DPs b/l)
Abdomen: soft, nontender, nondistended, + decreased bowel sounds
Neuro: A&O x4. Vision intact b/l. No neglect. Facial droop appears resolved, speech at baseline. Sensation is equal b/l in upper and lower extremities. Strength 5/5 upper and lower extremities b/l
Data Reviewed
-
Lab Results: Results Reviewed
Medications: Active Meds Reviewed
Chest X-Ray: Report Reviewed and Image Reviewed
ECG: Report Reviewed and Image Reviewed
[2023-11-18 04:08] LABS: Hemoglobin 8.9 g/dL (13.0-18.0); Mean Corpuscular Hgb 26.7 pg (27.0-31.0); Mean Corpuscular Volume 81.1 fL (80.0-94.0); Platelet Count 260 10^3/uL (130-400); Red Blood Cell Count 3.33 10^6/uL (4.70-6.10); Red Cell Dist. Width 14.7 % (11.5-14.5); White Blood Cell Count 15.2 10^3/uL (4.8-10.8)
[2023-11-18 04:31] LABS: Blood Urea Nitrogen 29 mg/dl (9-20); Calcium 8.6 mg/dl (8.4-10.2); Carbon Dioxide 23 mmol/L (22-30); Chloride 107 mmol/L (98-107); Estimated Creatinine Clearance 44 ml/min; Glucose 95 mg/dl (70-99); Magnesium 1.8 mg/dl (1.6-2.3); Potassium 4.1 mmol/L (3.5-5.1); Sodium 137 mmol/L (135-145); eGFR 52.41
--- NOTE | 2023-11-18 07:30 | PTCARENOTE ---
Resumed care of patient. Walking rounds complete with previous RN. Pt assisted with minimal assist and walker to the bathroom to void. Pt completed mouth care and perineal care. Assisted back to the chair. Pt assessed while he was sitting in the
chair. Pt alert and oriented x4. MAYBERRY with equal strength throughout. No facial droop, slight tongue deviation to the right. No sensation deficits, no visual deficits. NSR on tele with rates in the 80s. BP stable 130/68. Heart tones audible.
Bilateral radial and DP pulses palpable. No edema noted. Epicardial v-wire insulated. POX 96% on RA. Lungs diminished in the bases. IS encouraged-750ml achieved. No cough noted. Abdomen soft, nontender. +BS. Pt passing gas frequently. Pt voiding
yellow urine in the toilet. Sternal incision approximated with skin glue-PRACTICE MANAGER. Old chest tube sites CDI. Right groin puncture approximated and skin glue intact. Right SVG approximated with skin glue intact. Right IJ cordis intact. Right forearm 18g
PIV intact. See MAR for medication administration. See worklist for complete nursing assessment. Plan of care reviewed and patient in agreement.
[2023-11-18] MEDS: LOW STRENGTH ASPIRIN 81 MG PO (07:44)
[2023-11-18] MEDS: PLAVIX 75 MG PO (07:44)
[2023-11-18] MEDS: TYLENOL 1000 MG PO ×3 (07:44→22:12)
[2023-11-18 07:45] LABS: Glucose - Point of Care 114 mg/dl (70-99)
[2023-11-18] MEDS: BACTROBAN 2% OINTMENT 1 APPLIC NASAL ×2 (07:45→19:51)
[2023-11-18] MEDS: SENOKOT-S 1 TABLET PO (07:45)
[2023-11-18] MEDS: MAGNESIUM OXIDE 500 MG PO ×2 (07:45→19:51)
[2023-11-18] MEDS: PROTONIX 40 MG PO (07:45)
[2023-11-18] MEDS: LIPITOR 40 MG PO (07:45)
[2023-11-18] MEDS: LOPRESSOR 25 MG PO ×2 (07:45→19:51)
[2023-11-18] MEDS: FLUSH (NSS) 1 FLUSH IV (07:45)
--- NOTE | 2023-11-18 09:44 | W.PN.CD ---
Today's Communication / Plan
-
continue post op care
consider lasix
possible MRI
Impression / Plan
-
BACKGROUND: 72M with complaints of exertional angina who was found to have severe multivessel CAD by coronary angiography.
Credit Collections Analyst: Dr. Tucker
MCAD S/P CABG x 5 (UPTON-LAD, TERRIE-Diag, TERRIE-OM, Ao-SVG-PDA/PVBR) by Dr. Tilley on 11/15/2023
-SILAS with preserved EF pre and post revascularization without RWMA
-EKG with anterior ST elevation, limited STAT TTE without regional wall motion abnormality
-repeat EKG with resolustion of JACQUELINE
-Follow telemetry
-continue DAPT,atorva,metoprolol
-Weight is up from 11/14 from 77.4 to 80.7 kg, decreased lung sounds b/l, small effusion and mild pulm edema on CXR would consider lasix
PAD
-Total proximal right internal carotid artery occlusion and tandem 50% and 50-60% proximal left internal carotid artery stenoses
-Continue medical therapy with interval ultrasound follow-up for progression of left ICA disease
Suspected CVA:
-studies below
-symptoms improved
-neuro rec'd reviewed
-possible MRI
Post oop anemia:
-s/p 1 unit prbc on 11/15 for Hg 7.5
HTN
HLD, resume atorvastatin 40mg daily when able
CIY8l--vr 1.4 and stable
Type II DM, Hgba1c 6.5% (improved)
SUBJECTIVE:
He is feeling improved abit winded and tired with walking. no cp
He is having minimal pain with breathing trying to take deap breaths
Data:
11/16/23: Limited echocardiogram to assess LV regional and global function with special
�attention to the anterior wall.
�Normal left ventricular size and systolic function.
�No regional wall motion abnormalities are seen.
�Compared to prior study of 10/07/2023 the LV function is unchanged.
Head CT 11/16/23:
1. � No CT evidence for acute intracranial hemorrhage or transcortical infarct.
2. � Moderate bilateral parietal lobe volume loss.
3. � Mild white matter leukoaraiosis in the frontal and parietal lobes.
4. � Severe calcified thickening of the transverse ligament posterior to the dens causing moderate spinal cord compression and central canal stenosis.
NECK CTA 11/16/23:
1. � Complete occlusion of the proximal right internal carotid artery.
2. � Greater than 70% diameter stenosis in the proximal left internal carotid artery.
3. � Greater than 70% diameter stenosis in the pre-foraminal and extradural segments of the left vertebral artery.
4. � Large amount of intraluminal food material in the thoracic esophagus with surrounding esophageal wall thickening (possibly secondary to inflammatory esophagitis or esophageal carcinoma).
5. � Moderate-sized bilateral pleural effusions.
6. � Recent CABG surgery.
7. � Severe calcified thickening of the transverse ligament posterior to the dens causing moderate ventral spinal cord compression and central canal stenosis. Large 1.1 cm erosion in the left side of the C2 vertebral body. A crystal arthropathy
(calcium pyrophosphate dihydrate deposition arthropathy) or rheumatoid arthritis are diagnostic possibilities.
HEAD CTA 11/16/23:
1. � Complete occlusion of the right intracranial internal carotid artery.
2. � Severe greater than 70% diameter stenosis in the intracranial left internal carotid artery.
3. � Collateral blood supply reaching the right middle and anterior cerebral arteries.
4. � 70% diameter stenosis in the intracranial left vertebral artery.
5. � No CT evidence for acute intracranial hemorrhage or hydrocephalus.
�
Physical Exam
Vital Signs/Labs
Vital Signs
Temp Pulse Resp BP Pulse Ox
98.5 F 93 16 130/68 96
11/18/23 08:00 11/18/23 08:00 11/18/23 08:00 11/18/23 08:00 11/18/23 08:00
11/17/23 11/18/23 11/19/23
06:59 06:59 06:59
Actual Weight 80.7 kg 80.3 kg
11/18/23 03:53
11/18/23 03:53
PT 27.3 Sec (11.4-14.6) H 11/16/23 19:28
INR 2.50 11/16/23 19:28
APTT 40.4 Sec (23.4-35.0) H 11/16/23 19:28
Magnesium 1.8 mg/dl (1.6-2.3) 11/18/23 03:53
Triglycerides Cancelled 11/17/23 12:30
LDL Cholesterol, Calc Cancelled 11/17/23 12:30
VLDL Cholesterol, Calc Cancelled 11/17/23 12:30
HDL Cholesterol Cancelled 11/17/23 12:30
Physical Exam
Constitutional: No acute distress
Cardiovascular: Rhythm & rate is regular, Pedal edema is absent, Systolic murmur absent, JVD present (13 cm H20) and S1S2 is normal
Respiratory: Respiratory effort normal, Wheeze Absent and Crackles Present (at the bases b/l)
Neuro/Psych: AO x 3
Data Reviewed
-
Date of Service: November 18, 2023
X-Ray/CT/US/MRI/NUC/PET: Image Personally Visualized and interpreted (mild pulm edema and pleural effusion (trace right, Small on left))
Medical Tests (PFT, Pathology etc): Discussed with Physician (Dr Tilley, would consider lasix. He will hold off for now)
[2023-11-18] MEDS: NSS IV (09:51)
--- NOTE | 2023-11-18 09:53 | PTOTSP ---
Speech therapy
Presentation: Patient expressed to RN and SUPERINTENDENT SYSTEM OPERATION that he is not interested in puree solids and would like to try softer solids instead as that was what he was eating at home (without his dental plate in place). Of note, patient has very few teeth and
dental plate is at home.
Swallowing Function: SUPERINTENDENT SYSTEM OPERATION trialed thin liquids, puree solids, and moist/minced solids in which patient appeared to tolerate all trials as he did not exhibit any overt clinical s/sx of aspiration. Patient's mastication was WNL but increased in time
with minced/ moist solids. SUPERINTENDENT SYSTEM OPERATION did not trial harder solids due to poor dentition, noted impulsivity, and confusion.
Given the above information, consider upgrading diet to IDDSI Level 5; minced and moist solids and thin liquids.
Recommendations:
1) Upgrade Level 5; minced and moist solids and thin liquid diet
2) Aspiration precautions
3) Medications as tolerated
4) Small, single bites and sips (alternated)
Plan: SUPERINTENDENT SYSTEM OPERATION will continue to follow to ensure tolerance of upgraded diet.
--- NOTE | 2023-11-18 10:00 | PTCARENOTE ---
Epicardial v-wire cut with 2 RNs. Pt tolerated.
[2023-11-18] MEDS: GLUCOPHAGE 1000 MG PO ×2 (10:12→17:44)
[2023-11-18] MEDS: NOVOLOG FLEXPEN-HIGH RESISTANCE 1 UNITS SC ×3 (10:12→17:44)
[2023-11-18] MEDS: NOVOLOG FLEXPEN 5 UNITS SC ×3 (10:12→17:45)
--- NOTE | 2023-11-18 11:10 | W.PN.NEURO.1 ---
Today's Communication / Plan
-
.
Subjective/Objective
Subjective Data
Date of Service: November 18, 2023
Mr. Cline reports no transient neurological symptoms. He denies headache, change in strength, sensation or vision.
Brain MRI�pending.
LDL-9.
Chart review:
CT head�no acute infarcts
CTA head/neck�R ICA occlusion(no dissection), 70% of L ICA stenosis.
Tele: NSR
SILAS(11/15/2023)- no evidence of LA thrombus or PFO
�
PMH: Carotid artery disease CAD, HTN, DLP, DM, CKD, DUC, nephrolithiasis, OA
PSH:CABG(11/15/2023), lithotripsy, L wrist ORIF, bilateral cataract extraction
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
FH: Not contributory to current presentation
All: Aspirin, oxycodone
ROS:Constitutional: Negative. Negative for chills, fever and unexpected weight change.
HENT: Positive for hearing impaired
Eyes: Negative. Negative for photophobia, pain and visual disturbance.
Respiratory: Negative for cough, choking and shortness of breath.
Cardiovascular: Positive for chest soreness
Gastrointestinal: Negative for abdominal pain and vomiting.
Endocrine: Negative. Negative for cold intolerance.
Genitourinary: Negative for dysuria, flank pain and urgency.
Musculoskeletal: Negative for back pain, gait problem, neck pain and neck stiffness.
Skin: Negative for rash.
Allergic/Immunologic: Negative. Negative for immunocompromised state.
Neurological: Positive for chronic tingling in the
Psychiatric/Behavioral: Negative for behavioral problems, confusion and hallucinations.
�
�
General: Well developed. In no acute distress.
Cardio: Regular rate. Extremities are without cyanosis or edema.
Neuro:
Mental Status: Alert, oriented to person, place, and date.� Normal attention and recall.� Good fund of knowledge. Follows complex requests across the midline.� Comprehension, naming, and repetition intact.
Cranial Nerves: Pupils are equally round, surgical.� EOMs full.� Visual jenkins full to confrontation.� No ptosis.� No nystagmus.� V1-V3 intact to light touch and pinprick bilaterally, symmetric.� Face symmetric.� Poor hearing AU.� The palate
elevated well.� SCMs and traps 5/5.� Tongue midline.� No dysarthria.
Motor:� � � � Normal bulk and tone.� No pronator or arm drift.� Strength 5/5 throughout. No clonus.
Reflexes:� � � � � � Limited exam due to positioning. Plantar reflex-flexor BL
Sensory: � � Normal vibration and JPS.
Coordination: No dysmetria or tremor.�
Gait: � � � � � deferred
Assessment and Plan:
�
�
I. TIA, less likely seizure
II. Severe L ICA stenosis, asymptomatic
III. 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
-Continue Telemetry monitoring
-Maintain adequate cerebral perfusion pressure in view of severe left ICA stenosis
-Avoid cerebral hypoperfusion.
-Brain MRI without duc
-Continue aspirin 81 mg once a day and Plavix 75 mg once a day
-LDL goal<70.
-Vascular surgery follow-up
-OP Rheumatology consult
�
I personally reviewed all radiology and labs along with past medical records pertinent to current medical problems. Total time spent in patient care is 35 minutes.
�
Thank you for allowing us to participate in the care of this patient. We will continue to follow. Please do not hesitate to contact us with any questions or concern
Objective Data
Vital Signs
Temp Pulse Resp BP Pulse Ox
36.9 C 74 16 130/68 96
11/18/23 08:00 11/18/23 09:00 11/18/23 08:00 11/18/23 08:00 11/18/23 08:00
Lab Results
11/18/23 03:53
11/18/23 03:53
PT 27.3 Sec (11.4-14.6) H 11/16/23 19:28
INR 2.50 11/16/23 19:28
APTT 40.4 Sec (23.4-35.0) H 11/16/23 19:28
Sodium 137 mmol/L (135-145) 11/18/23 03:53
Potassium 4.1 mmol/L (3.5-5.1) 11/18/23 03:53
BUN 29 mg/dl (9-20) H 11/18/23 03:53
Glucose 95 mg/dl (70-99) 11/18/23 03:53
Calcium 8.6 mg/dl (8.4-10.2) 11/18/23 03:53
LDL Cholesterol, Calc Cancelled 11/17/23 12:30
Patient Allergies
aspirin Allergy (Verified 11/09/23 14:30)
Nausea / Vomiting
oxycodone [From Percodan] Allergy (Verified 11/09/23 14:30)
Shortness of Breath
--- NOTE | 2023-11-18 12:20 | PTCARENOTE ---
Pt reassessed. VSS. NSR on tele with rates in the 80s. BP stable 130/71. POX 96% on RA. Surgical sites stable. Right IJ cordis d/c per orders. Right forearm 18g PIV intact. No other acute changes from previous assessment. Pt resting in the chair.
--- NOTE | 2023-11-18 13:46 | CM ---
Reviewed chart. Met with Mr. Cline to review discharge plans. He states he is feeling well and maybe able to go home soon. He states he ambulated in the hallway and did We reviewed that he may benefit from a rolling walker at home until he gets
stronger. Rolling walker script placed on the front of the chart. Telephone call to Physical Therapy to let them know the walker script is on the front of the medical chart. Prior to admission he resides with his sister, [id number] and nephew
in a two story home with two story home. He has ten steps to get to bedroom/full bathroom. We reviewed a home a home visit by the Cardiothoracic Transitional Care Nurse. He is agreeable to a home care visit. Medical work-up in progress. The
discharge plan is to return home with his family and a home visit by the Cardiothoracic Transitional Care Nurse when medically stable.
[2023-11-18 14:06] LABS: Glucose - Point of Care 109 mg/dl (70-99)
--- NOTE | 2023-11-18 16:20 | PTCARENOTE ---
Pt reassessed. No neurological deficits noted. Ambulates in the room and in the hess with walker. NSR on tele with rates in the 80s. BP stable. POX 96% on RA. Surgical sites stable. No acute changes from previous assessment.
[2023-11-18 17:47] LABS: Glucose - Point of Care 88 mg/dl (70-99)
[2023-11-18] MEDS: LANTUS 0.149999999999999994 UNITS SC (17:51)
[2023-11-18] MEDS: SENOKOT-S PO (19:52)
--- NOTE | 2023-11-18 20:30 | PTCARENOTE ---
Pt received from [facility] RN. Pt AAOx4. SHAWANDA. Following commands appropriately. No facial droop, sensation deficits, or visual deficits noted at this time. Pt SR on monitor. HR 70-80s. Temporary epicardial v-wire cut during [facility] - site CDI. BP
stable. Bilateral radial and DP pulses palpable. No edema noted. RA. POX 95%. Lung sounds diminished in the bases. IS encouraged. + occasional cough. Abdomen soft/nontender. Voiding yellow urine in the bathroom w/ 1-person assist OOB. All surgical
sites stable and open to air. Right forearm 18g PIV CDI. Pt resting in bed at this time. No c/o pain at this time. See worklist for full nursing assessment and interventions. See MAR for medication administration. Call mccrary within reach.
[2023-11-18] MEDS: CELEXA 20 MG PO (22:11)
[2023-11-18 22:20] LABS: Glucose - Point of Care 68 mg/dl (70-99)
[2023-11-18 22:45] LABS: Glucose - Point of Care 76 mg/dl (70-99)
--- NOTE | 2023-11-18 22:46 | PTCARENOTE ---
Pt blood glucose 68. Pt asymptomatic. No c/o headache or dizziness. Pt does not appear diaphoretic. 4 oz fruit juice given. Repeat blood glucose 76. Pt remains asymptomatic at time of repeat blood glucose.
[2023-11-19] VITALS (8 sets, daily range): BP systolic 119–143; BP diastolic 47–75; PULSE 82; BMI 30.3
--- NOTE | 2023-11-19 00:27 | PTCARENOTE ---
Pt reassessed. SR on monitor. HR 80s. BP stable, 138/75. RA. POX 95%. All surgical sites stable. Pt assisted OOB to void in toilet x2. Pt resting in bed at this time. No c/o pain. Call mccrary within reach.
--- NOTE | 2023-11-19 04:35 | PTCARENOTE ---
Previous assessment unchanged. Pt SR on monitor. HR 80s. BP 143/61. RA. POX 95%. All surgical sites stable. Labs drawn and sent. Call mccrary within reach. Interventions and VS as documented.
[2023-11-19 04:40] LABS: Hemoglobin 8.3 g/dL (13.0-18.0); Mean Corp Hgb Conc. 33.2 g/dL (33.0-37.0); Mean Corpuscular Hgb 26.6 pg (27.0-31.0); Mean Corpuscular Volume 80.1 fL (80.0-94.0); Mean Platelet Volume 10.6 fL (7.4-10.4); Platelet Count 301 10^3/uL (130-400); Red Blood Cell Count 3.12 10^6/uL (4.70-6.10); White Blood Cell Count 12.1 10^3/uL (4.8-10.8)
[2023-11-19 05:19] LABS: Blood Urea Nitrogen 33 mg/dl (9-20); Calcium 8.7 mg/dl (8.4-10.2); Carbon Dioxide 23 mmol/L (22-30); Chloride 105 mmol/L (98-107); Estimated Creatinine Clearance 44 ml/min; Glucose 95 mg/dl (70-99); Magnesium 1.8 mg/dl (1.6-2.3); Potassium 3.9 mmol/L (3.5-5.1); Sodium 135 mmol/L (135-145); eGFR 52.41
--- NOTE | 2023-11-19 05:37 | W.PN.CT ---
Today's Communication / Plan
-
-pod #4
-no issues overnight
-head MRI 11/17 with small infarcts in R parietal and R frontal lobes. Continue ASA, Plavix, Lipitor
-will need outpatient rheumatology follow-up for severe C5/C6 and C6/C7 DJD with central spinal and b/l neuroforaminal stenosis
-consider Lasix
-follow 2v-CXR
-plans for outpatient GI workup
-continue PT/OT
-encourage IS, OOB
-appreciate everyone's input
-likely d/c soon
Assessment / Plan
-
Assessment:
-S/P Off Pump Cabg x 5 (randall- lad, danita - diag, danita - om, ao- svg - pda/pvbr)/MALENA clip/ revh/ RSF/TTFM, by Dr. Tilley, 11/15/23, pod#4
-Severe 3v CAD
-LVEF 60-65% per intraop SILAS
-HTN
-Hyperlipidemia
-T2DM (hgb A1C 6.5)
-CKD stage 3b (cr 1.7-2.1)
-Renal calculi/Urinary frequency
-Left inguinal hernia
-GERD/Hiatal hernia
-IBS
-OA
-Right ICA occlusion
-Post nasal drip
-Anxiety/depression
-S/p Recent teeth extraction
-S/P lithotripsy
-S/P R inguinal herniorrhaphy
-S/p ORIF of left wrist � � �
-Known significant b/l Carotid dz
� � � � �
� � � � � � � �
-Acute postop blood loss/Anemia on chronic anemia- s/p 1 pRBC 11/16/23
-Acute postop atelectasis/pleural effusions b/l
-Acute postop hypovolemia with subsequent hypervolemia � � �
-Acute postop suspected TIA on 11/15 - sxs have resolved; neurologically appears back at baseline
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
Head MRI 11/18/23:
1. � Small 7.9 mm and 3.1 mm ACUTE ISCHEMIC INFARCTS in the periventricular white matter of the RIGHT PARIETAL LOBE.
2. � Small 5 mm ACUTE ISCHEMIC INFARCT in the white matter of the RIGHT FRONTAL LOBE CENTRUM SEMIOVALE.
3. � Mild diffuse cerebral and cerebellar volume loss.
4. � Very severe thickening of the transverse ligament posterior to the dens causing moderate spinal cord compression and central canal stenosis.
Head CT 11/16/23:
1. � No CT evidence for acute intracranial hemorrhage or transcortical infarct.
2. � Moderate bilateral parietal lobe volume loss.
3. � Mild white matter leukoaraiosis in the frontal and parietal lobes.
4. � Severe calcified thickening of the transverse ligament posterior to the dens causing moderate spinal cord compression and central canal stenosis.
NECK CTA 11/16/23:
1. � Complete occlusion of the proximal right internal carotid artery.
2. � Greater than 70% diameter stenosis in the proximal left internal carotid artery.
3. � Greater than 70% diameter stenosis in the pre-foraminal and extradural segments of the left vertebral artery.
4. � Large amount of intraluminal food material in the thoracic esophagus with surrounding esophageal wall thickening (possibly secondary to inflammatory esophagitis or esophageal carcinoma).
5. � Moderate-sized bilateral pleural effusions.
6. � Recent CABG surgery.
7. � Severe calcified thickening of the transverse ligament posterior to the dens causing moderate ventral spinal cord compression and central canal stenosis. Large 1.1 cm erosion in the left side of the C2 vertebral body. A crystal arthropathy
(calcium pyrophosphate dihydrate deposition arthropathy) or rheumatoid arthritis are diagnostic possibilities.
HEAD CTA 11/16/23:
1. � Complete occlusion of the right intracranial internal carotid artery.
2. � Severe greater than 70% diameter stenosis in the intracranial left internal carotid artery.
3. � Collateral blood supply reaching the right middle and anterior cerebral arteries.
4. � 70% diameter stenosis in the intracranial left vertebral artery.
5. � No CT evidence for acute intracranial hemorrhage or hydrocephalus.
� � � � � � � �
Discussed patient care with: Nursing and Care Team
Subjective
Procedure
S/P Off Pump Cabg x 5 (randall- lad, danita - diag, danita - om, ao- svg - pda/pvbr)/MALENA clip/ revh/ RSF/TTFM, by Dr. Tilley, 11/15/23, pod#1
-
Date of Service: November 19, 2023
Objective Data
-
PT 27.3 Sec (11.4-14.6) H 11/16/23 19:28
INR 2.50 11/16/23 19:28
APTT 40.4 Sec (23.4-35.0) H 11/16/23 19:28
Vital Signs
Vital Signs
Temp Pulse Resp BP Pulse Ox
98.2 F 81 14 138/75 94
11/19/23 00:06 11/19/23 00:06 11/19/23 00:06 11/19/23 00:06 11/19/23 00:06
CT Intake/Output/Weight
11/18/23 11/18/23 11/19/23
06:59 18:59 06:59
Intake Total 970 / 970
Output Total 550 / 1600
Balance -550 / -900 970 / 970
SaO2: 94
Physical Exam
-
General: Awake and AOx3
Cardiovascular: Regular rate & rhythm, No Murmurs, No Rub and Other (+ JVD)
Respiratory: Decreased Breath Sounds
Sternum: Stable
Incision: Clean, Dry and Dressing Intact
Extremities: Other (trace edema b/l, 1+ DPs b/l)
Abdomen: soft, nontender, nondistended, + decreased bowel sounds
Neuro: A&O x4. Vision intact b/l. No neglect. Facial droop appears resolved, speech at baseline. Sensation is equal b/l in upper and lower extremities. Strength 5/5 upper and lower extremities b/l
Data Reviewed
-
Lab Results: Results Reviewed
Medications: Active Meds Reviewed
Chest X-Ray: Report Reviewed and Image Reviewed
ECG: Report Reviewed and Image Reviewed
[2023-11-19] MEDS: TYLENOL 1000 MG PO ×2 (05:50→13:12)
[2023-11-19 07:07] LABS: Glucose - Point of Care 106 mg/dl (70-99)
[2023-11-19] MEDS: NOVOLOG FLEXPEN 5 UNITS SC ×2 (07:13→12:31)
[2023-11-19] MEDS: NOVOLOG FLEXPEN-HIGH RESISTANCE 1 UNITS SC ×2 (07:13→12:30)
[2023-11-19] MEDS: LOW STRENGTH ASPIRIN 81 MG PO (07:52)
[2023-11-19] MEDS: PROTONIX 40 MG PO (07:52)
[2023-11-19] MEDS: GLUCOPHAGE 1000 MG PO (07:52)
[2023-11-19] MEDS: PLAVIX 75 MG PO (07:52)
[2023-11-19] MEDS: LIPITOR 40 MG PO (07:52)
[2023-11-19] MEDS: TOPROL XL 50 MG PO (07:52)
[2023-11-19] MEDS: MAGNESIUM OXIDE 500 MG PO (07:52)
[2023-11-19] MEDS: SENOKOT-S PO (07:53)
[2023-11-19] MEDS: BACTROBAN 2% OINTMENT 1 APPLIC NASAL (07:53)
--- NOTE | 2023-11-19 08:00 | PTCARENOTE ---
Received pt from shift commander RN; pt AAOx3 and resting comfortably in chair; NSR on monitor and VSS; lungs diminished; IS to 750; positive bowel sounds; pt voiding clear yellow urine; palpable pulses throughout; no edema noted; all surgical sites
C/D/I; see nursing documentation for further details.
--- NOTE | 2023-11-19 09:09 | W.DCSUMMARY ---
Discharge Summary
Discharge Data
Date of Admission: 11/15/23
Date of Discharge: 11/19/23
Total time spent discharging patient (in min): 35
-
Pending Results: No
Hospital Course
Primary care physician:
Dr. Jessee Chou
Outpatient organ pipe voicer:
Dr. Ron Tucker
Inpatient consultants:
CBC, neurology, gastroenterology, die cast operator
Procedures:
1. Off-pump coronary artery bypass grafting x 5
Primary Diagnosis:
1. 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
Secondary Diagnoses:
1. Chronic kidney disease
2. Severe carotid disease
3. Acute cerebrovascular accident
4. Hypertension
5. Hyperlipidemia
6. Diabetes mellitus type 2
7. Irritable bowel syndrome
8. Anxiety/depression
HPI: 73-year-old male with multivessel disease presented on 11/14 for an elective coronary artery bypass grafting with Dr. Tilley.
Hospital course: Patient was admitted on 11/14 for an elective CABG. He returned to the CVICU on Levophed, insulin, and Precedex infusions. Postoperative EKG showed anterior ST elevations therefore a stat echocardiogram was performed.
Echocardiogram remained stable. He was started on lactated Ringer's at 80 cc/h along with 2 albumin infusions. Precedex infusion was weaned off and patient by 1649. Once tolerating oral medications patient was started on aspirin 81 mg. After
extubation patient was noted to have left-sided weakness along with tongue deviation so a stroke alert was called and patient was taken to CAT scan. CAT scan did not show any acute intracranial abnormalities and symptoms improved upon return from
CT scan. On 11/15 postop day #1, arterial line, chest tubes, and Griffin catheter were removed. An incidental finding on CAT scan showed esophageal thickening therefore gastroenterology was consulted and recommended a esophagram. Speech pathology
also came to evaluate patient and he was started on a pur�ed diet due to his recent loss of teeth. Patient was started on Plavix and beta-blockers, however, patient amiodarone was held per Dr. Tilley. Neurology came to evaluate patient and
recommended an MRI. On 11/17 postoperative day #3 wires were cut and patient was taken to MRI. With the MRI he was found to have a right parietal and acute infarcts. Speech pathology came to reevaluate patient and his diet was advanced. On 11/18
postoperative day #4, 2 view chest x-ray was performed. On x-ray it was shown to have a possible tiny right apical pneumothorax after Cordis sheath removal. Imaging was reviewed with Dr. Tilley. Patient remained stable on room air with no
shortness of breath. Therefore, he was deemed stable for discharge.
Home medication changes:
see below
Discharge Plan
-
Patient Disposition: Home (Routine Discharge)
Discharge Diagnosis/Procedures: CAD/CABG
Condition: Fair
Diet: Low Cholesterol and Diabetic, Carb Controlled
Activity: No strenuous activity
Driving Restrictions: Not until seen by your Dr
Bathing Restrictions: OK to Shower
Others Tests: please obtain esophageal X ray after admission. See slip given by Dr. Padilla. Call hospital to schedule time.
Other Services: Cardiac Rehab
Specialty Instructions: Weigh Daily- Call MD for wt gain/loss 3 lbs overnight/5 lbs in 1 week
Activity Restrictions/Additional Instructions:
Please call to make appointments for Phase II Cardiac Rehab:
[facility]
[address], [place]
[phone] [email or web address]
ACTIVITY:
-No strenuous activity: no heavy lifting, pushing, pulling anything over 15 pounds for one month
-continue to use stairs as tolerated
DRIVING RESTRICTIONS:
-No driving for one month or until approved by your surgeon
WOUND CARE:
-Shower daily. Use soap & water.
-No lotions, creams or powders on incision area.
DIET:
-continue a low fat/low cholesterol diet.
-IF you are diabetic, continue carb controlled diet.
CARDIAC REHAB:
-Please make appointment to start in 5-6 weeks with your local hospital program. (See Cardiac Rehabilitation Discharge Booklet).
SPECIALTY INSTRUCTIONS:
-Weigh yourself daily. Call your physician for any weight gain/loss of 3 lbs overnight or 5 lbs in one week.
-REPORT any clicking noise or uneven appearance of your sternum to your surgeon immediately.
-If you smoke, you are instructed to quit. The MD smoking hotline phone number is [phone]
Referrals:
CT Transitional Care Nurse [Outside] - in one to two days
(
The Cardiothoracic Transitional Care Nurse will call you to set up a visit in 1-2 days.)
Geno Cornejo NP [Specified Professional Personl] - 12/27/23 11:30 am (Please call to reschedule if you can not keep this appointment. If your insurance requires a referral please contact your primary care physician prior to your appointment. )
Jessee Chou DO [Family Provider] - in four to six weeks (Please make an appointment in four to six weeks. )
Hari Tilley MD [Active] - 12/19/23 10:15 am
Sanjay Dsouza MD [Active] - in two to four weeks (Erosive arthropathic affecting upper cervical spine )
Ron Tucker MD [Non-Admitting Privileges] - 01/04/24 2:00 pm
Prescriptions:
New
acetaminophen 325 mg Tablet
650 mg PO Q6HPRN PRN (Reason: mild pain,headache,temp >101F ) Qty: 0 0RF
metoprolol succinate 50 mg Tablet Extended Release 24 Hr
50 mg PO DAILY Qty: 60 0RF
clopidogrel 75 mg Tablet
75 mg PO DAILY Qty: 30 0RF
pantoprazole 40 mg Tablet,Delayed Release (Dr/Ec)
40 mg PO DAILY Qty: 60 1RF
Continued
atorvastatin 40 mg Tablet
40 mg PO DAILY
metformin 500 mg Tablet
1,000 mg PO BID
Rx Instructions:
ON HOLD
aspirin 81 mg Tablet,Delayed Release (Dr/Ec)
81 mg PO DAILY
citalopram 20 mg Tablet
20 mg PO HS
pantoprazole 40 mg Tablet,Delayed Release (Dr/Ec)
40 mg PO DAILY
insulin glargine [Basaglar KwikPen U-100 Insulin] 100 unit/mL (3 mL) Insulin Pen
10 unit SC QPM
levocetirizine 5 mg Tablet
5 mg PO QPM
azelastine 137 mcg (0.1 %) Aerosol,Dysart
1 spray INTRANASAL TID
Discontinued
lisinopril-hydrochlorothiazide 20-25 mg Tablet
1 tab PO DAILY
nitroglycerin 0.4 mg tablet, sublingual
0.4 mg sublingual [id number] PRN (Reason: chest pain) Qty: 25 5RF
azithromycin 500 mg Tablet
500 mg PO DAILY
isosorbide mononitrate 30 mg tablet extended release 24 hr
30 mg PO DAILY
metoprolol succinate 25 mg tablet extended release 24 hr
25 mg PO DAILY
Discharge Orders:
Discharge Patient (As Directed); Ordered 11/19/23
Ordered By: Magali Benz
[2023-11-19] MEDS: SENOKOT-S 1 TABLET PO (10:20)
[2023-11-19 11:54] LABS: Glucose - Point of Care 97 mg/dl (70-99)
--- NOTE | 2023-11-19 12:01 | PTCARENOTE ---
Assessment unchanged; NSR on monitor and VSS; resting comfortably in chair.
[2023-11-19] MEDS: NSS IV (12:32)
--- NOTE | 2023-11-19 13:53 | PTCARENOTE ---
lmft removed; pt showered and dressed; awaiting family for discharge.
--- NOTE | 2023-11-19 14:57 | PTCARENOTE ---
Discharge instructions gone over with pt and family members; all questions answered; pt discharged to home with family.
== END 2023-11-19 15:00 | disposition home or self-care (01) | DRG 236 ==
LOC: CVICU 05:22
PROVIDERS: Nurse Practitioner; ADMITTING PHYSICIAN Thoracic Surgery (Cardiothoracic Vascular Surgery); CONSULT PHYSICIAN Internal Medicine Critical Care Medicine; CONSULT PHYSICIAN Internal Medicine Gastroenterology; CONSULT PHYSICIAN Psychiatry & Neurology Neurology; FAMILY PHYSICIAN Family Medicine
PROC: 06BP4ZZ Excision of Right Saphenous Vein, Percutaneous Endoscopic Approach (ICD-10-PCS; 2023-11-15)
PROC: 02110Z8 Bypass Coronary Artery, Two Arteries from Right Internal Mammary, Open Approach (ICD-10-PCS; 2023-11-15)
PROC: B24BZZ4 Ultrasonography of Heart with Aorta, Transesophageal (ICD-10-PCS; 2023-11-15)
PROC: 02L70CK Occlusion of Left Atrial Appendage with Extraluminal Device, Open Approach (ICD-10-PCS; 2023-11-15)
PROC: 021109W Bypass Coronary Artery, Two Arteries from Aorta with Autologous Venous Tissue, Open Approach (ICD-10-PCS; 2023-11-15)
PROC: 02100Z9 Bypass Coronary Artery, One Artery from Left Internal Mammary, Open Approach (ICD-10-PCS; 2023-11-15)
PROC: 30233N1 Transfusion of Nonautologous Red Blood Cells into Peripheral Vein, Percutaneous Approach (ICD-10-PCS; 2023-11-16)
DX: I25.118 Atherosclerotic heart disease of native coronary artery with other forms of angina pectoris (principal); J98.11 Atelectasis; D62 Acute posthemorrhagic anemia; G45.9 Transient cerebral ischemic attack, unspecified; D64.9 Anemia, unspecified; I12.9 Hypertensive chronic kidney disease with stage 1 through stage 4 chronic kidney disease, or unspecified chronic kidney disease; N20.0 Calculus of kidney; F41.9 Anxiety disorder, unspecified; F32.A Depression, unspecified; K21.9 Gastro-esophageal reflux disease without esophagitis; E11.22 Type 2 diabetes mellitus with diabetic chronic kidney disease; E11.36 Type 2 diabetes mellitus with diabetic cataract; Z86.73 Personal history of transient ischemic attack (TIA), and cerebral infarction without residual deficits; R13.10 Dysphagia, unspecified; E78.00 Pure hypercholesterolemia, unspecified; K58.8 Other irritable bowel syndrome; Z79.4 Long term (current) use of insulin; N18.31 Chronic kidney disease, stage 3a; I70.0 Atherosclerosis of aorta; Z79.02 Long term (current) use of antithrombotics/antiplatelets; Z79.82 Long term (current) use of aspirin
CPT/HCPCS: 93308; 36415; 70450; 70496; 70498; 70551; 71045; 71046; 80048; 80053; 80061; 81003; 82248; 82330; 82565; 82805; 82947; 82962; 83036; 83735; 84132; 84302; 84520; 85014; 85018; 85025; 85027; 85049; 85610; 85730; 86850; 86900; 86901; 86920; 87070; 92523; 92526; 92610; 93005; 93306; 93312; 93320; 93325; 93880; 94002; 97116; 97129; 97162; 97167; 97530; C1713; P9016; P9045; Q9967

== ENCOUNTER → 2023-12-27 08:43 | Outpatient (REF) | payer OTHER, SELFPAY | LOC: RAD 08:43 | PROVIDERS: ATTENDING PHYSICIAN Internal Medicine Gastroenterology; FAMILY PHYSICIAN Family Medicine | DX: R13.19 Other dysphagia (principal); R93.89 Abnormal findings on diagnostic imaging of other specified body structures | CPT/HCPCS: 74221 ==

== ENCOUNTER 2024-01-10 06:11 | Inpatient (IN) | payer OTHER, SELFPAY ==
--- NOTE | 2024-01-04 14:37 | PTCARENOTE ---
Dr. Duran made aware of CXR result from 11/19/23. No further action requested.
[2024-01-05 09:27] VITALS: BMI 29.8
[2024-01-05 10:04] LABS: % Basophils 0.8 % (0-2); % Eosinophils 4.5 % (0-6); % Immature Granulocytes 0.4 % (0-0.5); % Lymphocytes 23.3 % (20.5-51.1); % Monocytes 9.6 % (1.7-9.3); % Neutrophils 61.4 % (42.2-75.2); Absolute Basophils 0.1 10^3/uL (0-0.2); Absolute Eosinophils 0.4 10^3/uL (0-0.7); Absolute Lymphocytes 1.9 10^3/uL (1.2-3.4); Absolute Monocytes 0.8 10^3/uL (0.1-0.6); Absolute Neutrophils 4.9 10^3/uL (1.4-6.5); Hematocrit 29.3 % (39.0-52.0); Hemoglobin 8.9 g/dL (13.0-18.0); Mean Corp Hgb Conc. 30.4 g/dL (33.0-37.0); Mean Corpuscular Hgb 21.9 pg (27.0-31.0); Mean Corpuscular Volume 72.2 fL (80.0-94.0); Mean Platelet Volume 10.3 fL (7.4-10.4); Nucleated Red Blood Cells % 0 % (-); Platelet Count 355 10^3/uL (130-400); Red Blood Cell Count 4.06 10^6/uL (4.70-6.10); Red Cell Dist. Width 16.7 % (11.5-14.5)
[2024-01-05 10:16] LABS: APTT 32.2 Sec (23.4-35.0); INR 1.13; PT 14.6 Sec (11.4-14.6)
[2024-01-05 11:02] LABS: Blood Urea Nitrogen 25 mg/dl (9-20); Calcium 9.2 mg/dl (8.4-10.2); Carbon Dioxide 23 mmol/L (22-30); Chloride 103 mmol/L (98-107); Estimated Creatinine Clearance 50 ml/min; Glucose 105 mg/dl (70-99); Potassium 3.8 mmol/L (3.5-5.1); Sodium 141 mmol/L (135-145); eGFR > 60.00
--- NOTE | 2024-01-06 15:15 | PTCARENOTE ---
Abnormal hemaglobin on 01/04. Dr. Jiang aware and order Type and Screen for morning of surgery.
[2024-01-10] VITALS (19 sets, daily range): BP systolic 116–197; BP diastolic 52–92; BMI 29.2
[2024-01-10] MEDS: BACTROBAN NASAL 1 GRAM NASAL (07:05)
[2024-01-10] MEDS: NSS 500 IV (07:05)
[2024-01-10] MEDS: PERIDEX 0.12% ORAL RINSE 15 ML PO (07:05)
[2024-01-10 07:11] LABS: Glucose - Point of Care 116 mg/dl (70-99)
--- NOTE | 2024-01-10 07:41 | W.SUR.PREOP ---
Pre-Operative Surgical Note
-
I have examined this patient prior to the performance of the scheduled procedure.
The patient's condition is unchanged from the time of the current History and
Physical and the patient is able to undergo the scheduled procedure.
[2024-01-10 09:11] LABS: ACT-LR - POC 273 Seconds (116-155)
--- NOTE | 2024-01-10 10:31 | CON.INTV ---
Consultation
Consultation Request
Date/Time Consultation Requested: 01-10-24
Date/Time Consultation Performed: 01-10-24
Requesting Provider: Dr Hernandez
Performing Provider: Dr Keith
Reason for Consultation: s/p CEA
Medical History
-
Chief Complaint: incisional pain
History of Present Illness:
Mr Greg Cline is a 73/M adm for scheduled L . 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
Seen at ICU after L CEA by Dr Griffin. Reports mild postop incisional pain at L neck. Denies CP, dyspnea, cough. Not on home O2 or BDs. Nonsmoker
Past Medical History
Past Medical History: GERD, HTN, Hypercholesterolemia, IDDM, Renal Failure, Psychiatric (anxiety, depression) and Other (IBS, OA, DANNY neuropathy, HH, bilateral CA disease)
Past Surgical History: Cardiac (CABG)
Social History
Tobacco: Non-smoker
Alcohol: None
Drug: None
Personal: Single
Living: With Family
Employment: Employed
Family History
Family History: CAD (F, M) and Diabetes (M)
Allergies / Home Medications
Allergies
Allergy/AdvReac Type Severity Reaction Status Date / Time
aspirin Allergy Nausea / Verified 12/30/23 10:40
Vomiting
oxycodone [From Percodan] Allergy Shortness Verified 12/30/23 10:40
of Breath
Home Medications
�Medication �Instructions �Recorded �Confirmed �Last Taken �Type
aspirin 81 mg tablet,delayed 81 mg PO DAILY Blood Clot 10/04/23 01/10/24 01/10/24 04:00 History
release Prevention/Tx
atorvastatin 40 mg tablet 40 mg PO DAILY High Cholesterol 10/04/23 01/10/24 01/09/24 08:00 History
citalopram 20 mg tablet 20 mg PO Mental Health/Anxiety 10/04/23 01/10/24 01/09/24 21:00 History
insulin glargine 100 unit/mL (3 10 unit SC QPM Diabetes 10/04/23 01/10/24 01/08/24 22:00 History
mL) subcutaneous pen (Basaglar
KwikPen U-100 Insulin)
levocetirizine 5 mg tablet 5 mg PO QPM Allergies 10/04/23 01/10/24 01/09/24 20:00 History
metformin 500 mg tablet 1,000 mg PO BID Diabetes 10/04/23 01/10/24 01/09/24 20:00 History
pantoprazole 40 mg tablet,delayed 40 mg PO DAILY GERD 10/04/23 01/10/24 01/09/24 08:00 History
release
acetaminophen 325 mg tablet 650 mg (2 x 325 mg) PO Q6HPRN PRN 11/19/23 12/30/23 Unknown Rx
mild pain,headache,temp >101F #0
tabs
clopidogrel 75 mg tablet 75 mg PO DAILY Blood clot 11/19/23 01/10/24 01/10/24 04:00 Rx
prevention/tx #30 tabs
metoprolol succinate 50 mg 50 mg PO DAILY Blood pressure #60 11/19/23 01/10/24 01/10/24 04:00 Rx
tablet,extended release 24 hr tabs
Review of Systems
-
History Source: Patient
All other systems: Negative unless noted
Constitutional: Fatigue
Cardiac: Other (L neck incisional pain)
Neuro: Weakness
Vitals / Labs / Diagnostic Testing
Vital Signs
Temp Pulse Resp BP Pulse Ox
97.8 F 85 20 197/92 100
01/10/24 06:22 01/10/24 06:22 01/10/24 06:22 01/10/24 06:22 01/10/24 06:22
Diagnostic Testing:
Physical Exam
-
HEENT: Normocephalic and Moist Mucous Membranes
Cardiovascular: Regular Rhythm, Murmur (n) and Peripheral Edema
Respiratory: Clear and Non-Labored Respirations
GI: Soft, Non Distended and Non Tender
Neurology: Awake, Oriented and No Motor Deficits
Skin: Warm
General: Respiratory Distress (n)
Assessment
-
Assessment:
Mr Greg Cline is a 73/M adm for scheduled L . 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 Seen at ICU after L CEA by
Elias
Impression:
S/p L CEA 01-09
Conditions present prior to admission:
CAD s/p CABG October 2023
Postop TIA
Hypertension.
Hyperlipidemia.
Diabetes.
CKD.
Renal calculi.
Anxiety.
Depression.
GERD.
IBS.
Osteoarthritis.
Cataract.
Hernia repair.
Left wrist ORIF.
Lithotripsy.
Plan:
Postoperative surgical intensive care unit monitoring
Supplemental oxygen as needed
Incentive spirometry
Aspiration precautions
Post CXR with no infiltrates but mild basilar atelectasis
Neuro and vascular checks per protocol
Vascular surgery following-correspondence and operative notes reviewed
Continue clopidogrel
DVT prophylaxis
Early nutrition
Early mobilization
Critical care time: 35 min
Diagnostic data:
Echocardiogram 10/07/2023-EF 57%, no significant valvular disease
Cardiac catheterization 10/04/2023-EF 53%, severe triple-vessel CAD with 40% proximal and 60% mid LAD stenosis, 80% mid LAD stenosis, D2 70%, left circumflex 80%
Cardiac catheterization 10/18/2023-total proximal right internal carotid occlusion and tandem 50% and 50-60% proximal left internal carotid artery stenosis
--- NOTE | 2024-01-10 11:05 | OR.RPT ---
Operative Report
Operative Report
Date of Operation: 01/10/2024
Pre Op Diagnosis:
1.) High-grade calcified left carotid stenosis, asymptomatic
2.) Right carotid occlusion
3.) High-grade intracranial left internal carotid artery stenosis
4.) High-grade stenosis left vertebral artery
Post Op Diagnosis:
1.) High-grade calcified left carotid stenosis, asymptomatic
2.) Right carotid occlusion
3.) High-grade intracranial left internal carotid artery stenosis
4.) High-grade stenosis left vertebral artery
Procedure: LEFT carotid endarterectomy with patch angioplasty using bovine pericardium
Surgeon: Joselito Griffin III, MD
Fender Finisher: Humble Martins MD PhD, PGY1
Anesthesia: General
Complications: None
History and Indications for Procedure:
Procedure in Detail: Greg Cline was correctly identified and placed supine on the operating table. After adequate induction of anesthesia the left neck was positioned, prepped and draped in the usual sterile fashion. Preoperative antibiotics were
administered. A timeout procedure was performed with the nursing and anesthesia staff confirming the patients identity as well as the nature and laterality of the procedure.
The carotid bifurcation was marked with ultrasound at the beginning of the case. The incision was planned accordingly. An incision was made along the anterior border of the left sternocleidomastoid muscle. Electrocautery was used to divide the
subcutaneous tissue and platysma. The carotid sheath was entered with sharp dissection. The internal jugular vein was retracted laterally. The vagus nerve was identified and protected throughout the case. The common carotid artery was identified at
the base of this incision and carefully encircled with a vessel loop. The patient was systemically heparinized. The dissection was continued distally towards the carotid bifurcation. The facial vein was skeletonized, ligated and divided between ties
and clips. The proximal external carotid artery was encircled with a vessel loop. The distal internal carotid artery was encircled with a vessel loop at a soft spot on the artery beyond the plaque. The hypoglossal nerve was identified and protected.
The internal vessel loop was secured followed by the common and external. An arteriotomy was made on the distal common carotid artery with an 11-blade. This was extended proximally and distally with Huynh scissors. The arteriotomy was extended
distally through the plaque to an area of normal appearing internal carotid artery. At this point I was alerted to a change on EEG monitoring and therefore quickly proceeded with shunt insertion. I attempted to place the 10 Dille shunt but had
some difficulty inserting this easily into the distal internal carotid artery. I therefore switched to an 8 Dille shunt and was able to insert the distal aspect easily into the distal internal carotid artery. I communicated with anesthesia to
increase the mean arterial pressure. There was backbleeding from the proximal end of the shunt which was then inserted into the distal common carotid artery. The distal vessel loop was replaced with the distal shunt clamp. An endarterectomy was
performed with a [place] elevator in the standard fashion. The proximal extent of the plaque was transected with scissors. The distal end of the plaque in the internal carotid artery feathered very nicely with no distal intimal flap identified. I was
able to manipulate the shunt to visualize the distal endpoint. The plaque extending into the external carotid artery was everted. Once the plaque was fully removed the endarterectomy plane was irrigated with heparinized saline and any loose fronds
of tissue were removed. At this point, I was alerted by the neuromonitoring team that, although improved, the EEG had not yet fully returned back to baseline even with the 8 Dille shunt. I therefore decided to once again attempt placement of a
larger diameter shunt. The 8 Dille was removed and I was now able to easily insert the 10 Dille shunt. The distal end was placed first. Backbleeding was confirmed from the proximal end of the shunt which was then inserted into the distal common
carotid. The proximal vessel loop was resecured. The distal shunt clamp was reapplied to the internal carotid artery. I also communicated with anesthesia again at this point to increase the mean arterial pressure even further. With these
maneuvers the EEG improved towards baseline even further. A pre-cut piece of bovine pericardium was sewn in place using a running 6-0 Prolene suture. Prior to the completion of the patch the shunt was removed. The area under the patch was quickly
irrigated with heparinized saline to remove any potential thrombus or debris. The anastomosis was completed quickly.
The external vessel loop was released first, followed by the common and then the internal. There was an excellent pulse in the distal internal carotid artery. An excellent quality Doppler signal in the distal internal carotid artery was also
confirmed. The patch suture line was closely inspected for hemostasis and was achieved. Several patch/repair sutures were required to achieve complete hemostasis. Protamine was administered. Hemostasis was achieved in the wound bed. The wound was
irrigated with saline solution.
The wound was then closed in layers. Sterile dressings were applied. The patient awoke from anesthesia with no immediate neuro deficits and was taken to the PACU in stable condition.
Attestation: I was present and responsible for the entire procedure
Signed:
Joselito Griffin III, MD
[facility] Vascular Surgery
[phone] (uoud)
[2024-01-10 11:16] LABS: Glucose - Point of Care 125 mg/dl (70-99)
[2024-01-10 11:26] LABS: Hematocrit 24.1 % (39.0-52.0); Hemoglobin 7.3 g/dL (13.0-18.0); Mean Corp Hgb Conc. 30.3 g/dL (33.0-37.0); Mean Corpuscular Hgb 21.7 pg (27.0-31.0); Mean Corpuscular Volume 71.5 fL (80.0-94.0); Mean Platelet Volume 10.2 fL (7.4-10.4); Platelet Count 269 10^3/uL (130-400); Red Blood Cell Count 3.37 10^6/uL (4.70-6.10); Red Cell Dist. Width 16.7 % (11.5-14.5); White Blood Cell Count 13.3 10^3/uL (4.8-10.8)
[2024-01-10] MEDS: NEO-SYNEPHRINE 20 IV (11:31)
[2024-01-10 11:36] LABS: INR 1.31; PT 16.2 Sec (11.4-14.6)
[2024-01-10 11:37] LABS: APTT 32.1 Sec (23.4-35.0)
[2024-01-10] MEDS: NSS 1000 IV (11:56)
[2024-01-10] MEDS: DILAUDID 0.25 MG IV ×3 (12:06→21:15)
[2024-01-10 12:13] LABS: Blood Urea Nitrogen 28 mg/dl (9-20); Calcium 8.5 mg/dl (8.4-10.2); Carbon Dioxide 18 mmol/L (22-30); Chloride 110 mmol/L (98-107); Estimated Creatinine Clearance 54 ml/min; Glucose 123 mg/dl (70-99); Potassium 3.7 mmol/L (3.5-5.1); Sodium 140 mmol/L (135-145); eGFR > 60.00
[2024-01-10 13:08] LABS: Magnesium 0.9 mg/dl (1.6-2.3)
[2024-01-10] MEDS: NOVOLOG FLEXPEN-LOW RESISTANCE SC (13:14)
--- NOTE | 2024-01-10 13:15 | PTCARENOTE ---
Pt received into Rm 3363 at 1230 from PACU. Pt awake and answering questions appropriately at time of arrival. Neuro intact- tongue midline, smile symmetrical, hand product support manager and LE's strong and equal. OSVALDO 3mm. Lt neck incision noted w/ ice pack in
use. Lt neck incision surgical adhesive intact, incision well approximated and w/o ecchymosis or swelling noted. Lt radial Artis in place- leveled/zero-balanced w/ waveform wnl. IVF of NS infusing at 80ml/hr. Neosynephrine at 20mcg/min to maintain
MAP 80-100. Per BRIDGE OPERATOR SLIPJean Carlos notified of Mag= 0.9. Physical assessment completed. Orientation provided to pt on surroundings as well as plan of care. Pt taking sips of clear liquids w/o complication. Call mccrary w/in pt reach. Safe
environment maintained.
[2024-01-10 13:25] LABS: Glucose - Point of Care 120 mg/dl (70-99)
[2024-01-10] MEDS: MAGNESIUM SULFATE 50 IV ×2 (13:36→21:09)
[2024-01-10] MEDS: TYLENOL 650 MG PO ×2 (13:39→19:57)
--- NOTE | 2024-01-10 14:29 | W.IMMPOSTOP ---
Surgical Immed Post Op Note
-
Primary Surgeon: Dr. Joselito Griffin III, MD
Assisting Surgeon: Dr. Humble Martins MD, PhD (PGY-1)
Pre-op Diagnosis: Severe atherosclerotic disease of the left carotid artery
Post-op Diagnosis: Severe atherosclerotic disease of the left carotid artery
Procedure Performed: Left carotid endarterectomy with shunt
Anesthesia Type: General
Specimen / Cultures: None
Estimated Blood Loss: 75cc
Complications: None
Operative Findings: The patient was brought to the OR and placed in the supine position. After anesthesia was administered, neuromonitoring was placed. Ultrasound guidance was used to identify the left common carotid and the bifurcation to the
internal and external carotid arteries. The skin was marked along this course. The patient was prepped and draped in the usual sterile fashion. Incision was made and soft tissues were dissected with electrocautery and sharp dissection. Branches of
the jugular vein were ligated and divided as necessary. The common carotid was identified and dissected up to the bifurcation. A vessel loop was passed around the common carotid artery. The internal and external carotid arteries were then dissected
and vessel loops were passed around each. After proximal and distal control was achieved, an 11 blade was used to make arteriotomy in the common carotid artery. This was extended with Huynh scissors up through the proximal internal carotid artery. A
freer was used to perform the endarterectomy. Afterwards, neuromonitoring suggested a change from baseline, so the decision was made to advance a 8mm shunt from the common carotid to internal carotid arteries. This was upsized to a 10mm shunt to
facilitate better flow. A bovine pericardial patch was brought to the field and patch arterioplasty was performed with running 6-0 prolene suture. The patch was sewn around the shunt. The shunt was removed and the patch was completed. Repair
stitches were placed with 6-0 interrupted prolene sutures as needed. Gel foam was used for hemostasis. After hemostasis was confirmed, the soft tissues and skin were closed in layers and skin glue was applied to the skin. At the conclusion of the
case, the patient was neuro intact, able to follow commands and move all four extremities and his tongue. The patient was taken to the PACU in stable condition with a MAP goal of 80-100.
--- NOTE | 2024-01-10 15:30 | PTCARENOTE ---
Pt resting quietly in bed. Reports neck feels 'a little better. I can move my head off the pillow now' Incision and surrounding skin unchanged in appearance. Neuro intact and unchanged. 1st of two ordered units PRBCs transfusing w/o complication. Pt
assisted in ordering CL tray.
--- NOTE | 2024-01-10 15:33 | W.PV.INTER ---
VPI Note
Pre Admission Note
Functional Status: Light Work
Ambulation: Ambulate Independently
Pre Op Medications
Pre Op ASA: Yes
Pre Op Statin: Yes
Pre Op CHEYANNE Inhibitor/ARB: No
Pre Op P2y12 Antagonist: Clopidogrel
Pre Op Beta Blockers: Chronic > 30 Days
Pre Op Chronic Anticoagulant: None
Pre Op Cilostazol: No
Post Op Medications
Post Op ASA: Yes
Post Op Statin: Yes
Post Op CHEYANNE Inhibitor/ARB: No
Post Op P2y12 Antagonist: Clopidogrel
Post Op Beta Blockers: Chronic > 30 Days
Post Op Chronic Anticoagulant: None
Post Op Cilostazol: No
Modified [place]
Pre Op: 0
Post Op: 0
[2024-01-10] MEDS: GLUCOPHAGE 1000 MG PO (16:49)
[2024-01-10] MEDS: HEPARIN 5000 UNITS SC (16:49)
[2024-01-10 17:10] LABS: Glucose - Point of Care 191 mg/dl (70-99)
[2024-01-10] MEDS: NOVOLOG FLEXPEN-LOW RESISTANCE 1 UNITS SC (17:30)
[2024-01-10] MEDS: ZYRTEC 10 MG PO (17:32)
--- NOTE | 2024-01-10 18:27 | PTCARENOTE ---
2nd ordered unit PRBC finished transfusing w/o complication. Pt tolerating diet/PO fluids. IVF d/c'ed. Titrating Bernard gtt to maintain MAP 80-100. Neuro unchanged. No complaints. No changes from previous assessment findings.
[2024-01-10 18:38] LABS: Magnesium 1.5 mg/dl (1.6-2.3)
--- NOTE | 2024-01-10 20:46 | PTCARENOTE ---
Pt received at 19:00. L neck incision well approximated. Pt c/o 4/10 pain at site, requested tylenol and ice pack, provided as ordered. Ox3, facial symmetry, answers questions appropriately, follows commands, extremities--equal/strong, pupils 3mm
and reactive. L radial a-line in place, zeroed and transduced. Bernard continues to maintain MAP 80-100. Safe environment maintained, call mccrary within reach.
[2024-01-10] MEDS: CELEXA 20 MG PO (21:09)
[2024-01-10] MEDS: LANTUS 0.100000000000000006 UNITS SC (21:10)
[2024-01-10 21:39] LABS: Glucose - Point of Care 133 mg/dl (70-99)
--- NOTE | 2024-01-10 23:41 | PTCARENOTE ---
Pt incontinent of small amount of urine, bladder scanned for 466ml. Refusing straight cath at this time, states 'a little urge' to void, urinal provided, pt encouraged to void and educated on importance of emptying bladder.
[2024-01-11] VITALS (8 sets, daily range): BP systolic 123–172; BP diastolic 60–112; BMI 30.7
[2024-01-11] MEDS: HEPARIN 5000 UNITS SC ×2 (00:16→07:43)
--- NOTE | 2024-01-11 03:05 | DOWNTIME ---
There was a 3D Product Imaging Client Process Manufacturing Engineer Downtime on 01/10/2024 from 0100 to 01/11/2024 at 0300. Downtime documentation of patient's care, including medication administrations, has been reconciled in the electronic record per guidelines. Refer to the
patient's paper chart under the miscellaneous tab to see printed paper medication records and downtime forms.
[2024-01-11 04:47] LABS: Hematocrit 27.5 % (39.0-52.0); Mean Platelet Volume 10.2 fL (7.4-10.4); Platelet Count 260 10^3/uL (130-400); Red Blood Cell Count 3.82 10^6/uL (4.70-6.10); Red Cell Dist. Width 17.2 % (11.5-14.5); White Blood Cell Count 9.1 10^3/uL (4.8-10.8)
[2024-01-11 04:49] LABS: INR 1.24; PT 15.4 Sec (11.4-14.6)
[2024-01-11 04:50] LABS: APTT 34.5 Sec (23.4-35.0)
[2024-01-11 05:09] LABS: Blood Urea Nitrogen 26 mg/dl (9-20); Calcium 8.5 mg/dl (8.4-10.2); Carbon Dioxide 19 mmol/L (22-30); Chloride 109 mmol/L (98-107); Estimated Creatinine Clearance 50 ml/min; Glucose 95 mg/dl (70-99); Magnesium 1.8 mg/dl (1.6-2.3); Potassium 3.7 mmol/L (3.5-5.1); Sodium 140 mmol/L (135-145); eGFR > 60.00
[2024-01-11 05:14] LABS: Hemoglobin 8.8 g/dL (13.0-18.0)
--- NOTE | 2024-01-11 05:20 | PTCARENOTE ---
At 01:50, pt voided 100ml and PVR = 354ml. Pt stated no urge to void after PVR scan, encouraged voiding. Approx 05:00, pt voided 450ml, PVR scan 124ml.
MAP goal 80-100 maintained, morgan gtt titrated off.
[2024-01-11] MEDS: DILAUDID 0.25 MG IV (06:30)
[2024-01-11] MEDS: TOPROL XL 50 MG PO (07:42)
[2024-01-11] MEDS: ASPIR LOW (ENTERIC COATED) 81 MG PO (07:43)
[2024-01-11] MEDS: LIPITOR 40 MG PO (07:43)
[2024-01-11] MEDS: PROTONIX 40 MG PO (07:43)
[2024-01-11] MEDS: GLUCOPHAGE 1000 MG PO (07:43)
[2024-01-11] MEDS: PLAVIX 75 MG PO (07:43)
[2024-01-11] MEDS: NOVOLOG FLEXPEN-LOW RESISTANCE SC ×2 (07:49→11:59)
[2024-01-11 08:00] LABS: Glucose - Point of Care 102 mg/dl (70-99)
--- NOTE | 2024-01-11 08:00 | W.PN.VS ---
Addendum entered and electronically signed by Chao Hernandez MD 01/11/24 10:51:
Seen and examined with GLASS HANDLER. Agree with findings as noted below. Patient without significant complaints. Left neck incision clean dry and intact. No hematoma. Neurologically moves all extremities well, tongue midline. Plan/as discussed and noted
below.
Original Note:
Today's Communication / Plan
-
See below.
Assessment/Plan
-
Assessment: 73 year old male POD# 1 Left CEA
Plan:
Discontinue arterial line
Discontinue IV fluids
Continue diet
OOB to chair
Possible discharge later today
Subjective Data
-
Date of Service: January 11, 2024
Patient seen and examined offers no complaints, denies nausea, vomiting, fever, and chills. Denies headache, vision changes, difficulty with PO intake, and unilateral weakness.
Objective Data
-
Vital Signs
Temp Pulse Resp BP Pulse Ox
98.2 F 77 15 144/63 98
01/11/24 07:27 01/11/24 10:30 01/11/24 10:30 01/11/24 10:00 01/11/24 10:30
Intake and Output
01/10/24 01/11/24 01/12/24
06:59 06:59 06:59
Intake Total 2162 / 2162 450 / 450
Output Total 550 / 550 250 / 250
Balance 1612 / 1612 200 / 200
Intake:
Oral fluids 990 / 990 450 / 450
IV fluids (Total) 622 / 622 0 / 0
Neosynephrine 102 / 102 0 / 0
Normosol 200 / 200 0 / 0
Nss 1,000 ml @ 80 mls/hr IV . 320 / 320
[id number] ERASMO Rx#:[id number]
IV piggybacks 50 / 50
Blood Product Amount Infused ( 500 / 500
mL)
Packed Rbc Leukoreduced Unit 250 / 250
[id number]
Packed Rbc Leukoreduced Unit 250 / 250
[id number]
Output:
Urine, Voided 550 / 550 250 / 250
Other:
How many times incontinent 1
SMALL amount urine
Lab Results
01/11/24 04:30
01/11/24 04:30
Calcium 8.5 mg/dl (8.4-10.2) 01/11/24 04:30
Magnesium 1.8 mg/dl (1.6-2.3) 01/11/24 04:30
Physical Exam
-
AAOx3, NAD
Left neck site CDI, no hematoma, surrounding skin soft, tongue midline, face symmetrical
No tachycardia
No dyspnea
ABD rotund, non-distended
BL UE and LE with 5/5 equal strength
--- NOTE | 2024-01-11 08:00 | PTCARENOTE ---
received patient from [facility] shift lead. patient AAOx4. Is on room air, coarse breath sounds equal bilaterally. 95%. Patient is sinus rhythm on monitor, with left radial Connie tranduced at phlebostatic axis. no edema noted. Patient has left neck
incision with skin glue, approximated, no signs of redness or drainage. ACCU check preformed and assisted patient in ordering breakfast. patient has been using urinal in bed. Will review orders, awaiting orders to get OOB to chair.
--- NOTE | 2024-01-11 08:15 | W.PN.INTV ---
Documented by User: Anna Escobedo MD, Resident 01/11/24 11:28
Today's Communication / Plan
Recommendations
continue post op care
Assessment
-
Assessment:
Mr Greg Cline is a 73/M adm for scheduled L . 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 Seen at ICU after L CEA by
Elias
Impression:
S/p L CEA 01-09
Conditions present prior to admission:
CAD s/p CABG October 2023
Postop TIA
Hypertension.
Hyperlipidemia.
Diabetes.
CKD.
Renal calculi.
Anxiety.
Depression.
GERD.
IBS.
Osteoarthritis.
Cataract.
Hernia repair.
Left wrist ORIF.
Lithotripsy.
Plan:
Postoperative surgical intensive care unit monitoring
Supplemental oxygen as needed
Incentive spirometry
Aspiration precautions
Post CXR with no infiltrates but mild basilar atelectasis
Neuro and vascular checks per protocol
Vascular surgery following-correspondence and operative notes reviewed
Continue clopidogrel
DVT prophylaxis
Early nutrition
Early mobilization
Diagnostic data:
Echocardiogram 10/07/2023-EF 57%, no significant valvular disease
Cardiac catheterization 10/04/2023-EF 53%, severe triple-vessel CAD with 40% proximal and 60% mid LAD stenosis, 80% mid LAD stenosis, D2 70%, left circumflex 80%
Cardiac catheterization 10/18/2023-total proximal right internal carotid occlusion and tandem 50% and 50-60% proximal left internal carotid artery stenosis
Subjective Dataa
Subjective Data
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
Subjective:
No overnight events. Comfortable in no acute respiratory distress. Denies chest pain denies shortness of breath. Arterial Line discontinued.
Review of Systems
General: Fever (n) and Chills (n)
Cardiopulmonary: Dyspnea (n) and Cough (n)
GI: Abdominal Pain (n) and Diarrhea (n)
Objective Data
Data Reviewed
Vital Signs / I&O / Oxygen:
Vital Signs
Temp Pulse Resp BP Pulse Ox
98.2 F 68 16 143/68 94
01/11/24 07:27 01/11/24 08:00 01/11/24 08:00 01/11/24 08:00 01/11/24 08:09
Intake and Output
01/10/24 01/11/24 01/12/24
06:59 06:59 06:59
Intake Total 2162 / 2162 450 / 450
Output Total 550 / 550
Balance 1612 / 1612 450 / 450
SaO2 94
Nasal Cannula flow liters per 2
minute
Physical Exam
General: Comfortable and Other
HEENT: Normocephalic and Moist Mucous Membranes
Cardiovascular: Regular Rhythm and Murmur (n)
Respiratory: Non-Labored Respirations
GI: Non Distended and Normal Bowel Sounds
Neurology: Awake and AO x 3
Skin: Warm
Labs/Micro/Reports
Lab Data
01/11/24 04:30
01/11/24 04:30
Laboratory Results
01/10/24 01/11/24
11:15 04:30
PT 16.2 H 15.4 H
INR 1.31 1.24
APTT 32.1 34.5

Documented by User: Estiven Keith MD 01/11/24 12:02
Today's Communication / Plan
Recommendations
continue post op care
Dispo per [facility] S[facility]
Assessment
-
Assessment:
Mr Greg Cline is a 73/M adm for scheduled L . 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 Seen at ICU after L CEA by Dr
Elias
Impression:
S/p L CEA 01-09
Conditions present prior to admission:
CAD s/p CABG October 2023
Postop TIA
Hypertension.
Hyperlipidemia.
Diabetes.
CKD.
Renal calculi.
Anxiety.
Depression.
GERD.
IBS.
Osteoarthritis.
Cataract.
Hernia repair.
Left wrist ORIF.
Lithotripsy.
Plan:
Postoperative surgical intensive care unit monitoring completed
D/c A line
Resp hayden stable on RA
Incentive spirometry
Aspiration precautions
Postop CXR with no infiltrates but mild basilar atelectasis
Neuro and vascular checks per protocol
Vascular surgery following-correspondence and operative notes reviewed
Continue clopidogrel
DVT prophylaxis
Early nutrition
Early mobilization
Disposition per [facility], likely for d/c today, will sign off accordingly
Diagnostic data:
Echocardiogram 10/07/2023-EF 57%, no significant valvular disease
Cardiac catheterization 10/04/2023-EF 53%, severe triple-vessel CAD with 40% proximal and 60% mid LAD stenosis, 80% mid LAD stenosis, D2 70%, left circumflex 80%
Cardiac catheterization 10/18/2023-total proximal right internal carotid occlusion and tandem 50% and 50-60% proximal left internal carotid artery stenosis
ATTENDING PHYSICIAN ATTESTATION:
(Follow-up Visit:)
I personally saw and evaluated the patient along with the FM Resident Dr Morgan.
Discussed with Resident and discussed in rounds with MDT.
I agree with Resident�s findings and plan as documented in the resident�s note, which was edited by myself.
Subjective Dataa
Review of Systems
Neuro: Weakness (n)
Objective Data
Physical Exam
Cardiovascular: Peripheral Edema (n) and Other (L wound in good condition)
Respiratory: Clear and Stridor (n)
GI: Soft
Neurology: No Motor Deficits
--- NOTE | 2024-01-11 09:18 | PTCARENOTE ---
discontinued Connie, patient OOB to chair with standby assist.
--- NOTE | 2024-01-11 10:51 | CM ---
Patient seen at bedside. Patient stated that he lives with his family in a 3 story home. Patient denied DME at home. Patient has been attending cardiac rehab at [facility] and would like to return when appropriate. Patient PCP is "Kay"José Antonio and he uses the [facility] in [place] on [address] Patient plan is to return home with family support. Patient walking in hallway with nursing and plan is for discharge today and follow up with PCP and outpatient cardiac rehab. CM will
continue to follow for discharge planning needs.
Plan; home with follow up with PCP/ cardiac rehab at [facility]
--- NOTE | 2024-01-11 10:54 | PTCARENOTE ---
Patient ambulated entire unit with stand by assist
[2024-01-11 11:52] LABS: Glucose - Point of Care 149 mg/dl (70-99)
--- NOTE | 2024-01-11 12:14 | W.DS.TRANS ---
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
-
Discharge Instructions:
Discharge Diagnosis/Procedures Left carotid endarterectomy
Diet As tolerated
Activity No strenuous activity
Driving Restrictions Not until seen by your Dr
Bathing Restrictions OK to Shower
Instructions:
Stand-Alone Forms: DC Instr - Vascular OR
Changes to Home Medications: No
Discharge Medications:
DC Medications w/original date entered in [employer]
aspirin 81 mg tablet,delayed release 81 mg PO DAILY Blood Clot Prevention/Tx 10/04/23
atorvastatin 40 mg tablet 40 mg PO DAILY High Cholesterol 10/04/23
citalopram 20 mg tablet 20 mg PO HS Mental Health/Anxiety 10/04/23
insulin glargine 100 unit/mL (3 mL) subcutaneous pen (Basaglar KwikPen U-100 Insulin) 10 unit SC HS Diabetes 10/04/23
levocetirizine 5 mg tablet 5 mg PO QPM Allergies 10/04/23
metformin 500 mg tablet 1,000 mg PO BID Diabetes 10/04/23
pantoprazole 40 mg tablet,delayed release 40 mg PO DAILY GERD 10/04/23
clopidogrel 75 mg tablet 75 mg PO DAILY Blood clot prevention/tx #30 tabs 11/19/23
metoprolol succinate 50 mg tablet,extended release 24 hr 50 mg PO DAILY Blood pressure #60 tabs 11/19/23
acetaminophen 500 mg tablet 1,000 mg PO Q6HPRN PRN mild pain 01/10/24
Home Medication Changes
Pending Results: No
--- NOTE | 2024-01-11 12:56 | PTCARENOTE ---
order to discharge patient received.
[2024-01-11] MEDS: PREVNAR 20 0.5 ML IM (13:31)
--- NOTE | 2024-01-11 14:37 | W.DCSUMMARY ---
Discharge Summary
Discharge Data
Date of Admission: 01/10/24
Date of Discharge: 01/11/24
-
Pending Results: No
Hospital Course
Attending: Elias
Consultants: Pulmonary medicine
Allergies: Aspirin, oxycodone
Procedure with date: 01/10/24:
History of present illness: The patient is an 73 -year-old male with multiple medical conditions including: carotid stenosis, GERD, hypertension, Hypercholesterolemia, DM, Renal Failure, anxiety, depression, IBS, CAD with bypass. Patient presented
on 01/10/24 for scheduled procedure with Dr. Griffin. Patient presented at baseline health with no reports of recent illness or trauma.
Hospital Course: Briefly, the patient underwent scheduled CEA without complications, and recovered in PACU. Following recovery phase one and two patient was transferred to intensive care unit per protocol for continued hemodynamic monitoring.
Carpenter Supervisor Wooden [employer] consulted to aid in medical management from a critical care perspective. POD #1 (01/11/24) Patient neurologically intact, face symmetrical, and tolerating PO diet. Surgical neck site clean, dry, and intact with suture line well
approximated and soft. No evidence of hematoma. Arterial line and IV fluids discontinued. Patient able to ambulate without difficulty or incident. Patient stable for discharge to home.
Prescriptions and follow up appointment are included in the DC summary regional environmental manager note. All instructions were given to the patient in both written and verbal form and the patient expressed understanding.
Discharge Plan
-
Patient Disposition: Home (Routine Discharge)
Discharge Diagnosis/Procedures: Left carotid endarterectomy
Condition: Good
Diet: As tolerated
Activity: No strenuous activity
Driving Restrictions: Not until seen by your Dr
Bathing Restrictions: OK to Shower
Activity Restrictions/Additional Instructions:
If you experience severe constant headache, weakness to an arm or leg, change in vision, trouble speaking or any stroke-like symptom, call 911 immediately
If you experience swelling, increased bruising, drainage from neck site, or fever, please call the office
Stand Alone Forms: DC Instr - Vascular OR
Referrals:
Jessee Chou DO [Family Provider] -
Rosio Leslie PA-C [Specified Professional Personl] - 02/24/24 9:30 am (Vascular follow up)
Prescriptions:
Continued
atorvastatin 40 mg Tablet
40 mg PO DAILY
metformin 500 mg Tablet
1,000 mg PO BID
Rx Instructions:
ON HOLD
aspirin 81 mg Tablet,Delayed Release (Dr/Ec)
81 mg PO DAILY
citalopram 20 mg Tablet
20 mg PO HS
pantoprazole 40 mg Tablet,Delayed Release (Dr/Ec)
40 mg PO DAILY
insulin glargine [Basaglar KwikPen U-100 Insulin] 100 unit/mL (3 mL) Insulin Pen
10 unit SC HS
levocetirizine 5 mg Tablet
5 mg PO QPM
metoprolol succinate 50 mg Tablet Extended Release 24 Hr
50 mg PO DAILY Qty: 60 0RF
clopidogrel 75 mg Tablet
75 mg PO DAILY Qty: 30 0RF
acetaminophen 500 mg Tablet
1,000 mg PO Q6HPRN PRN (Reason: mild pain)
Discharge Orders:
Discharge Patient (As Directed); Ordered 01/11/24
Ordered By: Elsi Maurice
Discharge Date and Time
Print Language: HEBREW
--- NOTE | 2024-01-11 15:04 | PN.CDI ---
CDI
- -
CDI:
Physician Documentation Request
Admit Date: 01/10/24 06:11
Dear Vascular,
Please review the following and provide your response in the progress notes.
Clinical Indicators:
- 01/09 Post Op Report EBL 75ml
- 01/09 2 Units PRBC given
-
Laboratory Tests
01/05/24 01/10/24 01/11/24
09:20 11:15 04:30
Hgb 8.9 L 7.3 L 8.8 L D
Please clarify the appropriate diagnosis that supports the above lab abnormalities and additional evaluation, monitoring and/or treatment rendered:
Anemia, due to acute blood loss and hemodilution
Anemia due to hemodilution only
Clinically insignificant abnormal lab values
Other
Use of terms such as suspected, likely, concern for, or probable (associated with a specific diagnosis that is being evaluated, monitored, or treated as if it exists) are acceptable and can be coded in the inpatient setting, when documented at the
time of discharge.
Thank you,
Ugo Faith RN
CDI Specialist
Please use your independent medical judgment in providing your response.
--- NOTE | 2024-01-11 15:06 | PN.CDI ---
CDI
- -
CDI:
Physician Documentation Request
Admit Date: 01/10/24 06:11
Dear Vascular,
Please review the following and provide your response in the progress notes.
Clinical Indicators:
- 01/09 4 gram Magnesium sulfate
- 2 gram Mag sulfate given x 2
Laboratory Tests
01/10/24 01/10/24 01/11/24
11:15 18:14 04:30
Magnesium 0.9 L* 1.5 L 1.8
Please provide a diagnosis for the above lab values that were monitored and treatment rendered:
Hypomagnesemia
Clinically insignificant abnormal lab value
Other
Use of terms such as suspected, likely, concern for, or probable (associated with a specific diagnosis that is being evaluated, monitored, or treated as if it exists) are acceptable and can be coded in the inpatient setting, when documented at the
time of discharge.
Thank you,
Ugo Faith RN
CDI Specialist
Please use your independent medical judgment in providing your response.
--- NOTE | 2024-01-11 15:15 | PTCARENOTE ---
Addendum entered by Brooklynn Holt RN 01/11/24 15:16:
to [place] [facility] [place] 1445.
Original Note:
Rn flow Armature Winder Repair- Patient transported to the d/c lost. [facility] [place]
--- NOTE | 2024-01-11 15:47 | W.PN.UPDATE ---
Update Note
Progress Note Update
CDI:
Physician Documentation Request
Admit Date: 01/10/24 06:11
Please review the following and provide your response in the progress notes.
Clinical Indicators:
- 01/09 4 gram Magnesium sulfate
- 2 gram Mag sulfate given x 2
Laboratory Tests
01/10/24 01/10/24 01/11/24
11:15 18:14 04:30
Magnesium 0.9 L* 1.5 L 1.8
Please provide a diagnosis for the above lab values that were monitored and treatment rendered:
Hypomagnesemia treated with IV magnesium sulfate
--- NOTE | 2024-01-11 15:55 | W.PN.UPDATE ---
Update Note
Progress Note Update
CDI:
Physician Documentation Request
Admit Date: 01/10/24 06:11
Please review the following and provide your response in the progress notes.
Clinical Indicators:
- 01/09 Post Op Report EBL 75ml
- 01/09 2 Units PRBC given
-
Laboratory Tests
01/05/24 01/10/24 01/11/24
09:20 11:15 04:30
Hgb 8.9 L 7.3 L 8.8 L D
Please clarify the appropriate diagnosis that supports the above lab abnormalities and additional evaluation, monitoring and/or treatment rendered:
Anemia, due to acute blood loss likely with open operative procedure. Two units PRBC given.
[2024-01-12 19:16] LABS: Hepatitis C Antibody Negative (Negative)
== END 2024-01-11 14:56 | disposition home or self-care (01) | DRG 38 ==
LOC: ICU 06:11
PROVIDERS: Internal Medicine Pulmonary Disease; Nurse Practitioner Acute Care; ADMITTING PHYSICIAN Surgery Vascular Surgery; FAMILY PHYSICIAN Family Medicine
PROC: 03CJ0ZZ Extirpation of Matter from Left Common Carotid Artery, Open Approach (ICD-10-PCS; 2024-01-10)
DX: I65.22 Occlusion and stenosis of left carotid artery (principal); D62 Acute posthemorrhagic anemia; E83.42 Hypomagnesemia
CPT/HCPCS: 88304; 88311; 35301; 36415; 71045; 72020; 80048; 82962; 83735; 85025; 85027; 85610; 85730; 86803; 86850; 86900; 86901; 86920; 87070; 90677; 93005; G0009; P9016

== ENCOUNTER → 2024-01-24 10:25 | Outpatient (REF) | payer OTHER, SELFPAY | LOC: RAD 10:25 | PROVIDERS: ATTENDING PHYSICIAN Physician Assistant; FAMILY PHYSICIAN Family Medicine | DX: I65.22 Occlusion and stenosis of left carotid artery (principal); I65.21 Occlusion and stenosis of right carotid artery | CPT/HCPCS: 70450 ==

== ENCOUNTER 2024-02-07 06:16 | Day surgery (SDC) | payer OTHER, SELFPAY ==
[2024-02-07] VITALS (11 sets, daily range): BP systolic 182–224; BP diastolic 80–118; BMI 27.9
[2024-02-07 07:58] LABS: Glucose - Point of Care 113 mg/dl (70-99)
[2024-02-07] MEDS: TRANDATE 5 MG IV ×4 (10:59→11:40)
[2024-02-07 11:25] LABS: Glucose - Point of Care 108 mg/dl (70-99)
== END 2024-02-07 12:25 | disposition home or self-care (01) ==
LOC: GI 06:16
PROVIDERS: ATTENDING PHYSICIAN Internal Medicine Gastroenterology
DX: D50.0 Iron deficiency anemia secondary to blood loss (chronic) (principal); K64.0 First degree hemorrhoids; R13.10 Dysphagia, unspecified; K44.9 Diaphragmatic hernia without obstruction or gangrene; K31.7 Polyp of stomach and duodenum; K31.89 Other diseases of stomach and duodenum; K63.5 Polyp of colon; K29.50 Unspecified chronic gastritis without bleeding
CPT/HCPCS: 45380; 43239; 88305; 82962; 88342

== ENCOUNTER → 2024-02-16 10:36 | Outpatient (REF) | payer MEDICARE, SELFPAY | LOC: RAD 10:36 | PROVIDERS: ATTENDING PHYSICIAN Physician Assistant; FAMILY PHYSICIAN Family Medicine | DX: I65.22 Occlusion and stenosis of left carotid artery (principal); I65.21 Occlusion and stenosis of right carotid artery | CPT/HCPCS: 93880 ==

== ENCOUNTER 2024-02-21 09:40 | Outpatient (RCR) | payer OTHER, SELFPAY ==
[2024-02-09 13:25] VITALS: BP 166/70
[2024-02-09] MEDS: VENOFER 110 MG IV (13:30)
[2024-02-21 10:00] VITALS: BP 162/62
[2024-02-21] MEDS: VENOFER 110 MG IV (10:09)
[2024-02-21 11:15] VITALS: BP 162/72
== END 2024-02-22 10:40 | disposition home or self-care (01) ==
LOC: OID 09:40
PROVIDERS: ATTENDING PHYSICIAN Internal Medicine Gastroenterology; FAMILY PHYSICIAN Family Medicine
DX: D50.9 Iron deficiency anemia, unspecified (principal); N18.30 Chronic kidney disease, stage 3 unspecified; Z95.1 Presence of aortocoronary bypass graft
CPT/HCPCS: 96365; J1756

== ENCOUNTER 2024-03-13 09:36 | Outpatient (RCR) | payer OTHER, SELFPAY ==
[2024-02-28 10:00] VITALS: BP 167/80
[2024-02-28] MEDS: VENOFER 110 MG IV (10:27)
[2024-02-28 11:31] VITALS: BP 165/82
[2024-03-06] MEDS: VENOFER 110 MG IV (10:13)
[2024-03-06 10:28] VITALS: BP 169/69
[2024-03-06 11:55] VITALS: BP 166/66
[2024-03-13 09:56] VITALS: BP 173/94
[2024-03-13] MEDS: VENOFER 110 MG IV (10:15)
[2024-03-13 11:30] VITALS: BP 172/80
== END 2024-03-14 08:45 | disposition home or self-care (01) ==
LOC: OID 09:36
PROVIDERS: ATTENDING PHYSICIAN Internal Medicine Gastroenterology; FAMILY PHYSICIAN Family Medicine
DX: D50.9 Iron deficiency anemia, unspecified (principal); N18.30 Chronic kidney disease, stage 3 unspecified; Z95.1 Presence of aortocoronary bypass graft
CPT/HCPCS: 96365; J1756